=== PATIENT | female | born 1930 | race Asian ===

== ENCOUNTER 2018-08-29 17:03 | Inpatient (IN) | payer BC, OTHER ==
[~2018-08-29] VITALS: Ht 162.6 cm; Wt 44.7 kg
[~2018-08-29 17:03] MED LIST: ATORVASTATIN CA10 MG ORAL
[2018-08-29] MEDS ORDERED: Morphine Sulfate 2mg/ml Inj(IV/IM USE ONLY) IVP ONE (17:30)
[2018-08-29 17:56] LABS: BASOPHILS % (AUTO) 0.8 % (0.0-2.0); EOSINOPHILS % (AUTO) 1.2 % (0.0-3.0); HEMATOCRIT 40.5 % (37.0-47.0); HEMOGLOBIN 13.7 G/DL (12.0-16.0); LYMPHOCYTES % (AUTO) 11.2 % (20.0-45.0); MEAN CORPUSCULAR VOLUME 84 FL (80-99); MONOCYTES % (AUTO) 9.4 % (1.0-10.0); NEUTROPHILS % (AUTO) 77.4 % (45.0-75.0); PLATELET COUNT 340 K/UL (150-450); RED BLOOD COUNT 4.84 M/UL (4.20-5.40); RED CELL DISTRIBUTION WIDTH 11.6 % (11.6-14.8); WHITE BLOOD COUNT 12.6 K/UL (4.8-10.8)
[2018-08-29 18:06] LABS: ANION GAP 10 mmol/L (5-15); BLOOD UREA NITROGEN 30 mg/dL (7-18); CALCIUM 9.4 MG/DL (8.5-10.1); CARBON DIOXIDE 25 MMOL/L (21-32); CHLORIDE 105 MMOL/L (98-107); CREATININE 1.5 MG/DL (0.55-1.30); POTASSIUM 3.9 MMOL/L (3.5-5.1); SODIUM 140 MMOL/L (136-145)
[2018-08-29 18:12] LABS: ALANINE AMINOTRANSFERASE 25 U/L (12-78); ALBUMIN 3.8 G/DL (3.4-5.0); ALBUMIN/GLOBULIN RATIO 0.9 (1.0-2.7); ALKALINE PHOSPHATASE 94 U/L (46-116); ASPARTATE AMINO TRANSFERASE 22 U/L (15-37); BILIRUBIN,TOTAL 0.3 MG/DL (0.2-1.0); CREATINE KINASE 92 U/L (26-308)
[2018-08-29 18:26] VITALS: BP 149/70
[2018-08-29 19:16] LABS: APPEARANCE,URINE CLEAR; BILIRUBIN, URINE NEGATIVE (NEGATIVE); COLOR,URINE PALE YELLOW; GLUCOSE, URINE (UA) NEGATIVE (NEGATIVE); KETONES,URINE 1+ (NEGATIVE); LEUKOCYTE ESTERASE ,URINE 1+ (NEGATIVE); NITRITE,URINE NEGATIVE (NEGATIVE); PH,URINE 5 (4.5-8.0); PROTEIN,URINE 2+ (NEGATIVE); UROBILINOGEN,URINE NORMAL MG/DL (0.0-1.0)
[2018-08-29] MEDS ORDERED: Morphine Sulfate 4mg/ml Inj (IV USE ONLY) IVP ONE (19:30)
[2018-08-29] MEDS ORDERED: ACETAMINOPHEN325 M1 ORAL (19:32)
[2018-08-29] MEDS ORDERED: MULTIVITAMINS1 EAC2 ORAL (19:33)
[2018-08-29] MEDS ORDERED: ADVIL200 MG ORAL (19:33)
[2018-08-29 21:13] VITALS: BP 144/63
--- NOTE | 2018-08-29 21:30 | Emergency Room Report ---
History of Present Illness General Chief Complaint: Back Pain-No Injury Source: Patient, Family Member, EMS Present Illness HPI 88-year-old female presents ED for evaluation. Brought in by EMS. Complaining of back pain for the last few days. 10 out of 10, sharp, radiating down the right leg. Denies any recent fall or injury. Patient also states that she's been taking Cipro for diarrhea. Prescribed by her PMD. States she feels weak. Denies fevers or chills. Denies chest pain or shortness of breath. No other aggravating relieving factors. Denies any other associated symptoms Allergies: Coded Allergies: STRAWBERRY (Verified Allergy, Unknown, Rash, 08/29/18) Patient History Past Medical History: other Past Surgical History: none Pertinent Family History: none Social History: Denies: smoking, alcohol use, drug use Now: No Immunizations: UTD Reviewed Nursing Documentation: PMH: Agreed; PSxH: Agreed Nursing Documentation-PMH Hx Cardiac Problems: Yes - HEART MURMUR, HYPERLIPIDEMIA Review of Systems All Other Systems: negative except mentioned in HPI Physical Exam Vital Signs Date Time Temp Pulse Resp B/P (MAP) Pulse Ox O2 Delivery O2 Flow Rate FiO2 08/29/18 16:54 98.6 77 19 150/69 100 Room Air Sp02 EP Interpretation: reviewed, normal General Appearance: no apparent distress, alert, GCS 15, non-toxic, thin Head: normocephalic, atraumatic Eyes: bilateral eye normal inspection, bilateral eye PERRL ENT: hearing grossly normal, normal pharynx, no angioedema, normal voice Neck: full range of motion, supple/symm/no masses Respiratory: chest non-tender, lungs clear, normal breath sounds, speaking full sentences Cardiovascular #1: regular rate, rhythm, no edema Cardiovascular #2: 2+ carotid (R), 2+ carotid (L), 2+ radial (R), 2+ radial (L) , 2+ dorsalis pedis (R), 2+ dorsalis pedis (L) Gastrointestinal: normal bowel sounds, non tender, soft, non-distended, no guarding, no rebound Rectal: deferred Genitourinary: no CVA tenderness, vertebral tenderness Musculoskeletal: back normal, gait/station normal, tender - R hip pain with external rotation Neurologic: alert, oriented x3, responsive, motor strength/tone normal, sensory intact, speech normal Psychiatric: judgement/insight normal, memory normal, mood/affect normal, no suicidal/homicidal ideation Reflexes: 3+ bicep (R), 3+ bicep (L), 3+ tricep (R), 3+ tricep (L), 3+ knee (R) , 3+ knee (L) Skin: normal color, no rash, warm/dry, well hydrated Lymphatic: no adenopathy Medical Decision Making Diagnostic Impression: Primary Impression: Lumbar compression fracture Qualified Codes: S32.020A - Wedge compression fracture of second lumbar vertebra, initial encounter for closed fracture Additional Impressions: Diarrhea Qualified Codes: R19.7 - Diarrhea, unspecified Renal insufficiency ER Course Hospital Course 88-year-old female presents to ED with back pain, weakness, diarrhea Differential diagnoses include: fracture, scaitca, dehydration, UTI Clinical course Patient placed on stretcher. secured entrance monitor. After initial history and physical I ordered labs, IV fluids, UA, pain medication and CT scan Labs - minimal leukocytosis, Hb/Hct stable. cr 1.5, UA negative CT L-spine shows L2-L4 compression fractures CT pelvis unremarkable Patient given pain medications but still continues to have pain and unable to walk Discussed case with PMD Radha daly at [facility] - states that patient's normal creatinine is 0.8 Scuffed findings with patient and son. Patient will require admission. Patient states that she wants to be DO NOT RESUSCITATE. May have POLST signed to that effect at [facility] patient will be admitted to Dr Lemus I feel this is a highly complex case requiring extensive working including EKG/ Rhythm strip, Xray/CT/US, Blood/urine lab work, repeat exams while in ED, and administration of strong opiates/narcotics for pain control, admission to hospital or close patient follow up. Diagnosis - lumbar compression fx, diarrhea, renal isnufficiency Patient admitted to floor in serious condition Labs Test 08/29/18 17:27 08/29/18 18:49 White Blood Count 12.6 K/UL (4.8-10.8) Red Blood Count 4.84 M/UL (4.20-5.40) Hemoglobin 13.7 G/DL (12.0-16.0) Hematocrit 40.5 % (37.0-47.0) Mean Corpuscular Volume 84 FL (80-99) Mean Corpuscular Hemoglobin 28.2 PG (27.0-31.0) Mean Corpuscular Hemoglobin Concent 33.7 G/DL (32.0-36.0) Red Cell Distribution Width 11.6 % (11.6-14.8) Platelet Count 340 K/UL (150-450) Mean Platelet Volume 5.1 FL (6.5-10.1) Neutrophils (%) (Auto) 77.4 % (45.0-75.0) Lymphocytes (%) (Auto) 11.2 % (20.0-45.0) Monocytes (%) (Auto) 9.4 % (1.0-10.0) Eosinophils (%) (Auto) 1.2 % (0.0-3.0) Basophils (%) (Auto) 0.8 % (0.0-2.0) Sodium Level 140 MMOL/L (136-145) Potassium Level 3.9 MMOL/L (3.5-5.1) Chloride Level 105 MMOL/L (98-107) Carbon Dioxide Level 25 MMOL/L (21-32) Anion Gap 10 mmol/L (5-15) Blood Urea Nitrogen 30 mg/dL (7-18) Creatinine 1.5 MG/DL (0.55-1.30) Estimat Glomerular Filtration Rate mL/min (>60) Glucose Level 104 MG/DL (74-106) Calcium Level 9.4 MG/DL (8.5-10.1) Magnesium Level 2.1 MG/DL (1.8-2.4) Total Bilirubin 0.3 MG/DL (0.2-1.0) Aspartate Amino Transf (AST/SGOT) 22 U/L (15-37) Alanine Aminotransferase (ALT/SGPT) 25 U/L (12-78) Alkaline Phosphatase 94 U/L (46-116) Total Creatine Kinase 92 U/L (26-308) Total Protein 7.9 G/DL (6.4-8.2) Albumin 3.8 G/DL (3.4-5.0) Globulin 4.1 g/dL Albumin/Globulin Ratio 0.9 (1.0-2.7) Lipase 294 U/L (73-393) Urine Color Pale yellow Urine Appearance Clear Urine pH 5 (4.5-8.0) Urine Specific [place] 1.010 (1.005-1.035) Urine Protein 2+ (NEGATIVE) Urine Glucose (UA) Negative (NEGATIVE) Urine Ketones 1+ (NEGATIVE) Urine Blood 2+ (NEGATIVE) Urine Nitrite Negative (NEGATIVE) Urine Bilirubin Negative (NEGATIVE) Urine Urobilinogen Normal MG/DL (0.0-1.0) Urine Leukocyte Esterase 1+ (NEGATIVE) Urine RBC 0-2 /HPF (0 - 2) Urine WBC 0-2 /HPF (0 - 2) Urine Squamous Epithelial Cells Occasional /LPF Urine Bacteria Occasional /HPF (NONE) CT/MRI/US Diagnostic Results CT/MRI/US Diagnostic Results #1: Imaging Test Ordered: CT L spine Impression compression fx L2-L4 CT/MRI/US Diagnostic Results #2: Imaging Test Ordered: CT Pelvis Impression no acute process Last Vital Signs Date Time Temp Pulse Resp B/P (MAP) Pulse Ox O2 Delivery O2 Flow Rate FiO2 08/29/18 21:13 98.5 100 19 144/63 100 Room Air Status: unchanged Disposition: ADMITTED INPATIENT Condition: Serious Referrals: NON PHYSICIAN (PCP) Omari Chairez MD Aug 29, 2018 21:30
[2018-08-29 22:30] VITALS: BP 172/95
[2018-08-30] VITALS (7 sets, daily range): BP systolic 118–155; BP diastolic 54–86
[2018-08-30] MEDS ORDERED: Morphine Sulfate 2mg/ml Inj(IV/IM USE ONLY) IVP PRN (03:15)
[2018-08-30] MEDS ORDERED: Morphine Sulfate 4mg/ml Inj (IV USE ONLY) IVP PRN (03:15)
[2018-08-30 07:41] LABS: BASOPHILS % (AUTO) 0.9 % (0.0-2.0); EOSINOPHILS % (AUTO) 0.9 % (0.0-3.0); HEMATOCRIT 42.2 % (37.0-47.0); HEMOGLOBIN 14.1 G/DL (12.0-16.0); MEAN CORPUSCULAR VOLUME 87 FL (80-99); MONOCYTES % (AUTO) 10.4 % (1.0-10.0); NEUTROPHILS % (AUTO) 77.8 % (45.0-75.0); PLATELET COUNT 334 K/UL (150-450); RED BLOOD COUNT 4.85 M/UL (4.20-5.40); RED CELL DISTRIBUTION WIDTH 12.2 % (11.6-14.8); WHITE BLOOD COUNT 11.2 K/UL (4.8-10.8)
[2018-08-30 07:42] LABS: ANION GAP 10 mmol/L (5-15); BLOOD UREA NITROGEN 24 mg/dL (7-18); CALCIUM 9.4 MG/DL (8.5-10.1); CARBON DIOXIDE 26 MMOL/L (21-32); CHLORIDE 107 MMOL/L (98-107); CREATININE 1.2 MG/DL (0.55-1.30); PHOSPHORUS 4.3 MG/DL (2.5-4.9); POTASSIUM 3.6 MMOL/L (3.5-5.1); SODIUM 143 MMOL/L (136-145)
--- NOTE | 2018-08-30 08:32 | Diagnostic Imaging Report ---
Indications: Back pain Technique: Spiral acquisitions obtained through the lumbar spine. Multiplanar reconstructions were generated. No IV contrast utilized. Total dose length product 519.62 mGycm. CTDIvol(s) 16.32 mGy. Dose reduction achieved using automated exposure control Comparison: none Findings: There is a vertebra plana type compression fracture deformity of the L3 vertebral body, with loss of height particularly centrally at the superior endplate, maximum height loss about 50%. Acuity is indeterminate, although one or more previous fracture lines are seen in the superior endplate. There is mild superior endplate compression fracture deformity of the L4 vertebral body as well, with only minimal height loss. Slight buckling of the anterior wall of L2 could also indicate a mild superior endplate compression fracture. The remaining vertebral body heights are preserved. No other acute fractures. The bony alignment is normal. The disc spaces are preserved. There is some vacuum formation in the L5-S1 disc there is multilevel facet arthrosis, particularly the lower lumbar spine. The bones appear diffusely osteoporotic. Fat L2-3, there is a posterior osteophyte protruding off of the posterior superior aspect of L2. This does not significantly compromise the spinal canal. The neural foramina are preserved. At L4-5, there is circumferential annular bulge. This does not significant compromise the spinal canal or neural foramina. At the remaining disc levels, no significant disc bulge or protrusion, spinal stenosis or neural foraminal stenosis. There are large nerve root sleeve cysts involving the S2 and possibly S3 nerve root sleeves. These expand the lower sacral spinal canal. The included extra spinal soft tissues are unremarkable. Impression: Significant compression fracture deformity of the L3 vertebral body, less severe compression fracture deformities of L4 and L2, as described. Acuity of these is indeterminate. Recommend MRI to better characterize Minimal degenerative changes as detailed on a level by level basis above Incidental finding of lower sacral nerve root sleeve cysts This agrees with the preliminary interpretation provided overnight by [facility] teleradiology service. The CT scanner at [facility] is accredited by the [employer] and the scans are performed using protocols designed to limit radiation exposure to as low as reasonably achievable to attain images of sufficient resolution adequate for diagnostic evaluation.
--- NOTE | 2018-08-30 08:36 | Diagnostic Imaging Report ---
Indication: Right hip pain Technique: Noncontrast spiral acquisitions obtained through the pelvis. Multiplanar reconstructions generated. Total dose length product 336.32 mGycm. CTDIvol(s) 10.59 mGy. Dose reduction achieved using automated exposure control Comparison: none Findings: No evidence of acute fracture. No dislocations. The joint spaces are preserved. No definite soft tissue hematoma or contusion. Incidentally noted are large sacral nerve root sleeve cysts involving the S2 and S3 nerve root sleeves. The uterus and adnexal structures are unremarkable. Normal appendix is demonstrated Impression: No acute abnormality Incidental finding of nerve root sleeve cysts This agrees with the preliminary interpretation provided overnight by [facility] service. The CT scanner at [facility] is accredited by the [employer] and the scans are performed using protocols designed to limit radiation exposure to as low as reasonably achievable to attain images of sufficient resolution adequate for diagnostic evaluation.
[2018-08-30] MEDS ORDERED: oxyCODONE HCL/Acetaminophen 5/325mg ORAL PRN (09:30)
--- NOTE | 2018-08-30 10:02 | History and Physical ---
History of Present Illness General Date patient seen: Aug 30, 2018 Time patient seen: 08:30 Reason for Hospitalization: Back Pain-No Injury Present Illness HPI 88 year old woman with history of pSVT, hyperlipidemia, MVP, OA, breast cancer s /p right mastectomy who presented to the ED yesterday with progressive back and right hip pain for the past 3 days. Pain is 10/10 at worst and radiates down the right leg. Denies any injury or falls. She was moving furniture in April when initial symptoms of back pain started. Pain is better when she is lying down, worse when sitting up or moving. Patient had also been on Cipro for the past few days for unspecified diarrheal illness. In ED she was noted to have mild SARAH with creatinine of 1.5, imaging revealed ignificant compression fracture deformity of the L3 vertebral body, less severe compression fracture deformities of L4 and L2 - age indeterminate Social History: Lives with Son, no alcohol or tobacco Family History: No history of CAD, stroke Allergies: Coded Allergies: STRAWBERRY (Verified Allergy, Unknown, Rash, 08/29/18) Medication History Scheduled Atorvastatin Calcium* (Lipitor*), 10 MG ORAL BEDTIME, (Reported) Multivitamins* (Multivitamins*), 1 TAB ORAL DAILY, (Reported) Scheduled PRN Acetaminophen* (Acetaminophen 325MG Tablet*), 325 MG ORAL DAILY PRN for For Pain , (Reported) Ibuprofen* (Advil*), 200 MG ORAL Q6H PRN for For Pain, (Reported) Patient History Healthcare decision maker Resuscitation status Full Code Advanced Directive on File Review of Systems Constitutional: Denies: chills, fever Eye: Denies: eye pain, blurred vision ENT: Denies: ear pain Respiratory: Denies: cough, shortness of breath Cardiovascular: Denies: chest pain, edema, palpitations Gastrointestinal: Denies: abdominal pain, constipation Genitourinary: Denies: discharge, dysuria Musculoskeletal: Reports: back pain; Denies: gout, joint pain, joint swelling Skin: Denies: rash Neurological: Denies: headache, numbness, paresthesia Endocrine: Denies: excessive sweating Physical Exam General Appearance: no apparent distress, alert HEENT: atraumatic, anicteric Neck: normal alignment, supple, normal inspection Respiratory/Chest: lungs clear, normal breath sounds, no respiratory distress Cardiovascular/Chest: normal rate, regular rhythm Abdomen: non tender, soft, no organomegaly Extremities: non-tender, normal inspection, no calf tenderness Skin Exam: normal pigmentation, warm/dry 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 II-XII grossly normal, no motor/sensory deficits, alert, oriented x 3 Last 24 Hour Vital Signs Date Time Temp Pulse Resp B/P (MAP) Pulse Ox O2 Delivery O2 Flow Rate FiO2 08/30/18 09:01 Room Air 08/30/18 08:00 97.8 85 19 155/81 (105) 100 08/30/18 04:00 97.6 100 17 148/79 (102) 97 08/30/18 00:00 97.9 105 18 154/86 (108) 97 08/29/18 22:30 97.7 107 17 172/95 (120) 97 08/29/18 22:14 Room Air 08/29/18 22:10 98.5 100 19 144/63 100 Room Air 08/29/18 21:13 98.5 100 19 144/63 100 Room Air 08/29/18 21:08 98.6 08/29/18 20:19 98.6 08/29/18 18:26 98.6 106 19 149/70 100 Room Air 08/29/18 18:06 98.6 08/29/18 16:54 98.6 77 19 150/69 100 Room Air Intake and Output 08/29/18 08/30/18 19:00 07:00 Intake Total 1600 ml Output Total 0 ml Balance 0 ml 1600 ml Intake Oral 100 ml IV Total 1500 ml Output Urine Total 0 ml Laboratory Tests Test 08/29/18 17:27 08/29/18 18:49 08/30/18 06:38 White Blood Count 12.6 K/UL (4.8-10.8) H 11.2 K/UL (4.8-10.8) H Red Blood Count 4.84 M/UL (4.20-5.40) 4.85 M/UL (4.20-5.40) Hemoglobin 13.7 G/DL (12.0-16.0) 14.1 G/DL (12.0-16.0) Hematocrit 40.5 % (37.0-47.0) 42.2 % (37.0-47.0) Mean Corpuscular Volume 84 FL (80-99) 87 FL (80-99) Mean Corpuscular Hemoglobin 28.2 PG (27.0-31.0) 29.0 PG (27.0-31.0) Mean Corpuscular Hemoglobin Concent 33.7 G/DL (32.0-36.0) 33.4 G/DL (32.0-36.0) Red Cell Distribution Width 11.6 % (11.6-14.8) 12.2 % (11.6-14.8) Platelet Count 340 K/UL (150-450) 334 K/UL (150-450) Mean Platelet Volume 5.1 FL (6.5-10.1) L 5.4 FL (6.5-10.1) L Neutrophils (%) (Auto) 77.4 % (45.0-75.0) H 77.8 % (45.0-75.0) H Lymphocytes (%) (Auto) 11.2 % (20.0-45.0) L 10.0 % (20.0-45.0) L Monocytes (%) (Auto) 9.4 % (1.0-10.0) 10.4 % (1.0-10.0) H Eosinophils (%) (Auto) 1.2 % (0.0-3.0) 0.9 % (0.0-3.0) Basophils (%) (Auto) 0.8 % (0.0-2.0) 0.9 % (0.0-2.0) Sodium Level 140 MMOL/L (136-145) 143 MMOL/L (136-145) Potassium Level 3.9 MMOL/L (3.5-5.1) 3.6 MMOL/L (3.5-5.1) Chloride Level 105 MMOL/L (98-107) 107 MMOL/L (98-107) Carbon Dioxide Level 25 MMOL/L (21-32) 26 MMOL/L (21-32) Anion Gap 10 mmol/L (5-15) 10 mmol/L (5-15) Blood Urea Nitrogen 30 mg/dL (7-18) H 24 mg/dL (7-18) H Creatinine 1.5 MG/DL (0.55-1.30) H 1.2 MG/DL (0.55-1.30) Estimat Glomerular Filtration Rate mL/min (>60) mL/min (>60) Glucose Level 104 MG/DL (74-106) 109 MG/DL (74-106) H Calcium Level 9.4 MG/DL (8.5-10.1) 9.4 MG/DL (8.5-10.1) Magnesium Level 2.1 MG/DL (1.8-2.4) Total Bilirubin 0.3 MG/DL (0.2-1.0) Aspartate Amino Transf (AST/SGOT) 22 U/L (15-37) Alanine Aminotransferase (ALT/SGPT) 25 U/L (12-78) Alkaline Phosphatase 94 U/L (46-116) Total Creatine Kinase 92 U/L (26-308) Total Protein 7.9 G/DL (6.4-8.2) Albumin 3.8 G/DL (3.4-5.0) Globulin 4.1 g/dL Albumin/Globulin Ratio 0.9 (1.0-2.7) L Lipase 294 U/L (73-393) Urine Color Pale yellow Urine Appearance Clear Urine pH 5 (4.5-8.0) Urine Specific [place] 1.010 (1.005-1.035) Urine Protein 2+ (NEGATIVE) H Urine Glucose (UA) Negative (NEGATIVE) Urine Ketones 1+ (NEGATIVE) H Urine Blood 2+ (NEGATIVE) H Urine Nitrite Negative (NEGATIVE) Urine Bilirubin Negative (NEGATIVE) Urine Urobilinogen Normal MG/DL (0.0-1.0) Urine Leukocyte Esterase 1+ (NEGATIVE) H Urine RBC 0-2 /HPF (0 - 2) Urine WBC 0-2 /HPF (0 - 2) Urine Squamous Epithelial Cells Occasional /LPF Urine Bacteria Occasional /HPF (NONE) Phosphorus Level 4.3 MG/DL (2.5-4.9) Height (Feet): 5 Height (Inches): 4.00 Weight (Pounds): 119 Medications Current Medications Medications (Trade) Dose Ordered Sig/Blank Route PRN Reason Start Time Stop Time Status Last Admin Dose Admin Acetaminophen (Tylenol) 650 mg Q6H PRN ORAL Mild Pain/Temp > 100.5 08/30/18 03:15 09/29/18 03:14 Atorvastatin Calcium (Lipitor) 10 mg BEDTIME ORAL 08/30/18 21:00 09/29/18 20:59 Morphine Sulfate (Morphine Sulfate) 4 mg Q6HR PRN IVP Severe Pain (Pain Scale 7-10) 08/30/18 03:15 09/06/18 03:14 08/30/18 05:16 Oxycodone/ Acetaminophen (Percocet 10/325) 1 tab Q4H PRN ORAL Severe Pain (Pain Scale 7-10) 08/30/18 09:30 09/06/18 09:29 Oxycodone/ Acetaminophen (Percocet 5-325) 1 tab Q4H PRN ORAL Moderate Pain (Pain Scale 4-6) 08/30/18 09:30 09/06/18 09:29 Assessment/Plan Assessment/Plan #Low back pain without LE weakness #Severe L3 compression fractures -admit to medical service -obtain MRI L-Spine -Percocet prn -Morphine IV for breakthrough pain -Neurology consult -PT/OT eval #SARAH, likely due to dehydration from diarrheal illness, improved with IV fluids -continue to monitor renal function -avoid nephrotoxic meds #PSVT #Hyperlipidemia #MVP -continue Lipitor VTE PPx Heparin SC Full Code High complexity medical decision making (need 2/3 categories) Problem - need 4 points Acute/new problem with new plan for workup (4 points, 1 max) Stable chronic problem actively being managed (1 point each, 2 max) Self-limited/transient process (constipation, muscle ache, etc) (1 point each, 2 max) Data - need 4 points Reviewed labs/imaging studies (1 points, 2 max) Independent review of imaging (EKG, xrays, etc) (2 points, 2 max) Discussed case with consult/other MD/RN (2 points, 2 max) High Risk - qualify if have one of the following: Severe exacerbation of acute problem, acute mental status change, IV narcotics, monitoring drug levels (vancomycin, INR, tacrolimus etc) I spent 70 minutes on this patient's case, and 35 minutes was dedicated to counseling and/or care coordination. Rupert Harper MD Aug 30, 2018 10:02
[2018-08-30] MEDS ORDERED: LORazepam Inj 2mg/ml 1ml IV SCH (11:30)
--- NOTE | 2018-08-30 14:34 | Consultation ---
History of Present Illness General Date patient seen: Aug 30, 2018 Time patient seen: 15:00 Chief Complaint: Back Pain-No Injury Reason for Consultation: Compression Fracture with Pain Present Illness HPI 88 year old woman with history of pSVT, hyperlipidemia, MVP, OA, breast cancer s /p right mastectomy who presented to the ED yesterday with progressive back and right hip pain for the past 3 days. Pain is 10/10 at worst and radiates down the right leg. Denies any injury or falls. She was moving furniture in April when initial symptoms of back pain started. Pain is better when she is lying down, worse when sitting up or moving. Patient had also been on Cipro for the past few days for unspecified diarrheal illness. In ED she was noted to have mild SARAH with creatinine of 1.5, imaging revealed ignificant compression fracture deformity of the L3 vertebral body, less severe compression fracture deformities of L4 and L2 - age indeterminate Allergies: Coded Allergies: STRAWBERRY (Verified Allergy, Unknown, Rash, 08/29/18) Medication History Scheduled Atorvastatin Calcium* (Lipitor*), 10 MG ORAL BEDTIME, (Reported) Multivitamins* (Multivitamins*), 1 TAB ORAL DAILY, (Reported) Scheduled PRN Acetaminophen* (Acetaminophen 325MG Tablet*), 325 MG ORAL DAILY PRN for For Pain , (Reported) Ibuprofen* (Advil*), 200 MG ORAL Q6H PRN for For Pain, (Reported) Patient History Limited by: medical condition History Provided By: Family Member Healthcare decision maker Resuscitation status DNAR Advanced Directive on File Past Medical/Surgical History Past Medical/Surgical History: (1) Diarrhea (2) Renal insufficiency (3) Lumbar compression fracture (4) Intractable back pain Review of Systems All Other Systems: negative except mentioned in HPI Physical Exam General Appearance: WD/WN, no apparent distress, lethargic - Just given Ativan and Oxycodone Lines, tubes and drains: peripheral HEENT: normocephalic, atraumatic Neck: normal alignment Respiratory/Chest: chest wall non-tender, normal breath sounds Cardiovascular/Chest: normal peripheral pulses, normal rate Skin Exam: normal pigmentation Neurologic: no motor/sensory deficits, unresponsiveness - Secondary to being given benzos/ narcotics , other - WD or localizing x 4. Right leg extended and somewhat rigid, increased tone. Reflexes intact bilaterally L>R. Toes down bilaterally . Last 24 Hour Vital Signs Date Time Temp Pulse Resp B/P (MAP) Pulse Ox O2 Delivery O2 Flow Rate FiO2 08/30/18 13:05 98.2 97 19 131/66 (87) 95 08/30/18 11:30 79 19 148/74 (98) 100 08/30/18 09:01 Room Air 08/30/18 08:00 97.8 85 19 155/81 (105) 100 08/30/18 04:00 97.6 100 17 148/79 (102) 97 08/30/18 00:00 97.9 105 18 154/86 (108) 97 08/29/18 22:30 97.7 107 17 172/95 (120) 97 08/29/18 22:14 Room Air 08/29/18 22:10 98.5 100 19 144/63 100 Room Air 08/29/18 21:13 98.5 100 19 144/63 100 Room Air 08/29/18 21:08 98.6 08/29/18 20:19 98.6 08/29/18 18:26 98.6 106 19 149/70 100 Room Air 08/29/18 18:06 98.6 08/29/18 16:54 98.6 77 19 150/69 100 Room Air Intake and Output 08/29/18 08/30/18 19:00 07:00 Intake Total 1600 ml Output Total 0 ml Balance 0 ml 1600 ml Intake Oral 100 ml IV Total 1500 ml Output Urine Total 0 ml Laboratory Tests Test 08/29/18 17:27 08/29/18 18:49 08/30/18 06:38 White Blood Count 12.6 K/UL (4.8-10.8) H 11.2 K/UL (4.8-10.8) H Red Blood Count 4.84 M/UL (4.20-5.40) 4.85 M/UL (4.20-5.40) Hemoglobin 13.7 G/DL (12.0-16.0) 14.1 G/DL (12.0-16.0) Hematocrit 40.5 % (37.0-47.0) 42.2 % (37.0-47.0) Mean Corpuscular Volume 84 FL (80-99) 87 FL (80-99) Mean Corpuscular Hemoglobin 28.2 PG (27.0-31.0) 29.0 PG (27.0-31.0) Mean Corpuscular Hemoglobin Concent 33.7 G/DL (32.0-36.0) 33.4 G/DL (32.0-36.0) Red Cell Distribution Width 11.6 % (11.6-14.8) 12.2 % (11.6-14.8) Platelet Count 340 K/UL (150-450) 334 K/UL (150-450) Mean Platelet Volume 5.1 FL (6.5-10.1) L 5.4 FL (6.5-10.1) L Neutrophils (%) (Auto) 77.4 % (45.0-75.0) H 77.8 % (45.0-75.0) H Lymphocytes (%) (Auto) 11.2 % (20.0-45.0) L 10.0 % (20.0-45.0) L Monocytes (%) (Auto) 9.4 % (1.0-10.0) 10.4 % (1.0-10.0) H Eosinophils (%) (Auto) 1.2 % (0.0-3.0) 0.9 % (0.0-3.0) Basophils (%) (Auto) 0.8 % (0.0-2.0) 0.9 % (0.0-2.0) Sodium Level 140 MMOL/L (136-145) 143 MMOL/L (136-145) Potassium Level 3.9 MMOL/L (3.5-5.1) 3.6 MMOL/L (3.5-5.1) Chloride Level 105 MMOL/L (98-107) 107 MMOL/L (98-107) Carbon Dioxide Level 25 MMOL/L (21-32) 26 MMOL/L (21-32) Anion Gap 10 mmol/L (5-15) 10 mmol/L (5-15) Blood Urea Nitrogen 30 mg/dL (7-18) H 24 mg/dL (7-18) H Creatinine 1.5 MG/DL (0.55-1.30) H 1.2 MG/DL (0.55-1.30) Estimat Glomerular Filtration Rate mL/min (>60) mL/min (>60) Glucose Level 104 MG/DL (74-106) 109 MG/DL (74-106) H Calcium Level 9.4 MG/DL (8.5-10.1) 9.4 MG/DL (8.5-10.1) Magnesium Level 2.1 MG/DL (1.8-2.4) Total Bilirubin 0.3 MG/DL (0.2-1.0) Aspartate Amino Transf (AST/SGOT) 22 U/L (15-37) Alanine Aminotransferase (ALT/SGPT) 25 U/L (12-78) Alkaline Phosphatase 94 U/L (46-116) Total Creatine Kinase 92 U/L (26-308) Total Protein 7.9 G/DL (6.4-8.2) Albumin 3.8 G/DL (3.4-5.0) Globulin 4.1 g/dL Albumin/Globulin Ratio 0.9 (1.0-2.7) L Lipase 294 U/L (73-393) Urine Color Pale yellow Urine Appearance Clear Urine pH 5 (4.5-8.0) Urine Specific Stamps 1.010 (1.005-1.035) Urine Protein 2+ (NEGATIVE) H Urine Glucose (UA) Negative (NEGATIVE) Urine Ketones 1+ (NEGATIVE) H Urine Blood 2+ (NEGATIVE) H Urine Nitrite Negative (NEGATIVE) Urine Bilirubin Negative (NEGATIVE) Urine Urobilinogen Normal MG/DL (0.0-1.0) Urine Leukocyte Esterase 1+ (NEGATIVE) H Urine RBC 0-2 /HPF (0 - 2) Urine WBC 0-2 /HPF (0 - 2) Urine Squamous Epithelial Cells Occasional /LPF Urine Bacteria Occasional /HPF (NONE) Phosphorus Level 4.3 MG/DL (2.5-4.9) Height (Feet): 5 Height (Inches): 4.00 Weight (Pounds): 119 Medications Current Medications Medications (Trade) Dose Ordered Sig/Blank Route PRN Reason Start Time Stop Time Status Last Admin Dose Admin Acetaminophen (Tylenol) 650 mg Q6H PRN ORAL Mild Pain/Temp > 100.5 08/30/18 03:15 09/29/18 03:14 Atorvastatin Calcium (Lipitor) 10 mg BEDTIME ORAL 08/30/18 21:00 09/29/18 20:59 Morphine Sulfate (Morphine Sulfate) 4 mg Q6HR PRN IVP Severe Pain (Pain Scale 7-10) 08/30/18 03:15 09/06/18 03:14 08/30/18 05:16 Oxycodone/ Acetaminophen (Percocet 10/325) 1 tab Q4H PRN ORAL Severe Pain (Pain Scale 7-10) 08/30/18 09:30 09/06/18 09:29 08/30/18 09:55 Oxycodone/ Acetaminophen (Percocet 5-325) 1 tab Q4H PRN ORAL Moderate Pain (Pain Scale 4-6) 08/30/18 09:30 09/06/18 09:29 Assessment/Plan Problem List: (1) Lumbar compression fracture Assessment & Plan: IR Kyphoplasty planned for treatment of vertebral compression fracture- need patient to be alert enough to give her consent for this. Will try tomorrow. Agree with treatment plan and will follow. ICD Codes: S32.000A - Wedge compression fracture of unspecified lumbar vertebra , initial encounter for closed fracture SNOMED: 568593008, [id number] Qualifiers: Qualified Codes: S32.020A - Wedge compression fracture of second lumbar vertebra, initial encounter for closed fracture (2) Intractable back pain Assessment & Plan: Currently deeply asleep following administration of Ativan for MRI and oxycodone for pain. No pain noted except upon stimulation of right leg during exam . ICD Codes: M54.9 - Dorsalgia, unspecified SNOMED: 284650767 (3) Depression Assessment & Plan: As per son, and as per RN, patient initially refusing pain management. "I'm DNR so I'm going to anyway" Patient convinced to allow pain management but voicing resistance to treatment. Psych consult recommended. ICD Codes: F32.9 - Major depressive disorder, single episode, unspecified SNOMED: 76261449 Qualifiers: Qualified Codes: F32.9 - Major depressive disorder, single episode, unspecified Status: stable Assessment/Plan Q4 Neuro/ Neurovascular Obs Pain Management Avoid use of benzodiazapenes/ narcotics or use sparingly Avoid disorientation/ anxiety: Providing regular reorientation to patient PT/OT Eval when able FOLLOWING procedure. Valarie Douglass N.P. Aug 30, 2018 14:34
--- NOTE | 2018-08-30 15:34 | Diagnostic Imaging Report ---
Indication: Below back pain 10 out of 10 Technique: Sagittal T1 and T2 fast spin echo, sagittal STIR, axial T1 and T2 fast spin-echo images of the lumbar spine Comparison: Reference made to CT scan of the lumbar spine 08/29/2018 Findings: There is mild buckling of the anterior wall of the L2 vertebral body, also demonstrated on recent CT, minimal if any height loss, slight depression of the superior endplate. There is considerable edema of the superior half of the L2 vertebral body, manifested by increased STIR and decreased T1 signal. There is a wedge/burst compression fracture deformity of the L3 vertebral body, with slight retropulsion of the superior aspect of the posterior wall. The greatest height loss is centrally, where there is approximately 60% loss of height. A thin rim of edema is seen adjacent to the superior endplate. There is mild loss of height of the L4 vertebral body, predominantly involving the superior endplate. There is considerable edema immediately adjacent to the L4 superior endplate, greater in extent than that seen at L3 but less than at L2. The remaining vertebral body marrow is normal. The remaining vertebral body heights are preserved. The disc spaces are all preserved. The conus medullaris terminates at the L1 level. There are large sacral nerve root sleeve cysts, also demonstrated on recent CT scan. No significant disc bulge or protrusion, spinal stenosis, or neural foraminal stenosis demonstrated. The included extraspinal soft tissues demonstrates moderate right and minimal left hydronephrosis. This is not evident on recent CT scan.. The sagittal images suggests that the bladder is markedly distended Impression: Positive for acute superior endplate compression fracture of the L2 vertebral body, also demonstrating minimal buckling of the anterior wall, confirming findings suspected on recent CT scan. L3 burst/ wedge compression fracture as described. There is some edema, indicating an acute component, but the edema is less than expected given the degree of deformity. Suspect the fracture deformity is mostly chronic, with a superimposed acute endplate depression Acute L4 superior endplate compression fracture, as described Unusual finding of bilateral right greater than left hydronephrosis which is not present on a lumbar spine CT of less than 24 hours earlier. Significance/etiology uncertain but suspect on the basis of acute bladder distention Multiple sacral nerve root sleeve cysts, also previously reported. Findings discussed by phone with Dr. Russo at the time of interpretation
[2018-08-31] VITALS: BP 155/84
[2018-08-31 04:00] VITALS: BP 170/100
[2018-08-31] MEDS: HydrALAZINE 25mg tab ORAL PRN (05:44)
[2018-08-31 08:00] VITALS: BP 154/86
--- NOTE | 2018-08-31 08:52 | Pre-Procedure Note/Attestation ---
Pre-Procedure Note/Attestation Complete Prior to Procedure Planned Procedure: not applicable Procedure Narrative: L2, L3, L4 kyphoplasty Indications for Procedure Pre-Operative Diagnosis: painful compression fractures Attestation I attest that I discussed the nature of the procedure; its benefits; risks and complications; and alternatives (and the risks and benefits of such alternatives ), prior to the procedure, with the patient (or the patient's legal traffic representative). I attest that, if there was a reasonable possibility of needing a blood transfusion, the patient (or the patient's legal traffic representative) was given the [facility] standardized written summary, pursuant to the [place] Blood Safety Act ([place] Health and Safety Code # 1645, as amended). I attest that I re-evaluated the patient just prior to the surgery and that there has been no change in the patient's H&P, except as documented below: Lucho Perrin MD Aug 31, 2018 08:52
--- NOTE | 2018-08-31 11:28 | General Progress Note ---
Assessment/Plan Assessment/Plan #Acute lumbar compression fractures -continue supportive care -plan for Kyphoplasty once medically cleared -Percocet prn -Morphine IV for breakthrough pain -Neurology following -PT/OT eval #Fever #Sepsis -unclear source at this time, possible urinary -ID eval appreciated, started on Zosyn -check blood and urine cultures #Acute urinary retention -continue Kaye catheter #SARAH -resolved -continue to monitor renal function -avoid nephrotoxic meds #PSVT #Hyperlipidemia #MVP -currently sinus tachycardia -continue Lipitor VTE PPx Heparin SC Full Code High complexity medical decision making (need 2/3 categories) Problem - need 4 points Acute/new problem with new plan for workup (4 points, 1 max) Stable chronic problem actively being managed (1 point each, 2 max) Self-limited/transient process (constipation, muscle ache, etc) (1 point each, 2 max) Data - need 4 points Reviewed labs/imaging studies (1 points, 2 max) Independent review of imaging (EKG, xrays, etc) (2 points, 2 max) Discussed case with consult/other MD/RN (2 points, 2 max) High Risk - qualify if have one of the following: Severe exacerbation of acute problem, acute mental status change, IV narcotics, monitoring drug levels (vancomycin, INR, tacrolimus etc) I spent 70 minutes on this patient's case, and 35 minutes was dedicated to counseling and/or care coordination. Subjective Date patient seen: Aug 31, 2018 ROS Limited/Unobtainable: No Constitutional: Denies: chills, fever HEENT: Denies: eye pain Cardiovascular: Denies: chest pain Respiratory: Denies: cough, orthopnea Gastrointestinal/Abdominal: Denies: abdomen distended, abdominal pain Genitourinary: Denies: burning Neurologic/Psychiatric: Reports: anxiety Allergies: Coded Allergies: STRAWBERRY (Verified Allergy, Unknown, Rash, 08/29/18) Subjective Medicine follow up for acute lumbar compression fractures. Overnight she had low grade temp of 100 + urinary retention of 850 ml, s/p Kaye catheter placement Objective Last 24 Hour Vital Signs Date Time Temp Pulse Resp B/P (MAP) Pulse Ox O2 Delivery O2 Flow Rate FiO2 08/31/18 08:00 97.8 127 22 154/86 (108) 96 08/31/18 05:44 181/92 08/31/18 04:00 100.0 117 18 170/100 (123) 96 08/31/18 00:00 97.8 110 18 155/84 (107) 100 08/30/18 21:00 Room Air 08/30/18 20:00 97.8 107 18 144/79 (100) 95 08/30/18 15:59 97.7 88 18 118/54 (75) 95 08/30/18 13:05 98.2 97 19 131/66 (87) 95 08/30/18 11:30 79 19 148/74 (98) 100 Intake and Output 08/30/18 08/31/18 18:59 06:59 Intake Total 220 ml Output Total 200 ml Balance 220 ml -200 ml Intake Oral 220 ml Output Urine Total 200 ml # Voids 2 Laboratory Tests 08/30/18 16:20: Prothrombin Time 10.6, Prothromb Time International Ratio 1.0, Activated Partial Thromboplast Time 23 Height (Feet): 5 Height (Inches): 4.00 Weight (Pounds): 119 General Appearance: no apparent distress, alert Neck: supple, normal inspection Cardiovascular: regular rhythm, tachycardia Respiratory/Chest: lungs clear, normal breath sounds, no respiratory distress Abdomen: non tender, soft, no organomegaly, no mass Extremities: normal range of motion, non-tender Neurologic: dispatcher relay II-XII grossly normal, no motor/sensory deficits, alert Rupert Harper MD Aug 31, 2018 11:28
[2018-08-31 12:00] VITALS: BP 152/88
[2018-08-31 12:05] LABS: BASOPHILS % (AUTO) 0.6 % (0.0-2.0); EOSINOPHILS % (AUTO) 0.4 % (0.0-3.0); HEMATOCRIT 43.3 % (37.0-47.0); HEMOGLOBIN 14.2 G/DL (12.0-16.0); LYMPHOCYTES % (AUTO) 7.5 % (20.0-45.0); MEAN CORPUSCULAR VOLUME 86 FL (80-99); MONOCYTES % (AUTO) 8.5 % (1.0-10.0); NEUTROPHILS % (AUTO) 83.1 % (45.0-75.0); PLATELET COUNT 325 K/UL (150-450); RED BLOOD COUNT 5.04 M/UL (4.20-5.40); RED CELL DISTRIBUTION WIDTH 12.1 % (11.6-14.8); WHITE BLOOD COUNT 15.2 K/UL (4.8-10.8)
[2018-08-31 12:37] LABS: ANION GAP 10 mmol/L (5-15); BLOOD UREA NITROGEN 27 mg/dL (7-18); CALCIUM 9.7 MG/DL (8.5-10.1); CARBON DIOXIDE 25 MMOL/L (21-32); CHLORIDE 108 MMOL/L (98-107); SODIUM 143 MMOL/L (136-145)
--- NOTE | 2018-08-31 15:49 | Neurology Progress Note ---
Interim History Interim History ROS Limited/Unobtainable: No Complaints: Lower Back Pain Events: Consented to have IR Kyphoplasty Interim History Now awaiting IR procedure for Monday, was able to consent this morning but now wont make it onto list until Monday. Will manage pain inpatient over the weekend and monitor neurvascular status. Objective Physical Exam Last Vital Signs Date Time Temp Pulse Resp B/P (MAP) Pulse Ox O2 Delivery O2 Flow Rate FiO2 08/31/18 12:00 98.0 114 17 152/88 (109) 98 08/31/18 09:00 Room Air Laboratory Tests Test 08/30/18 16:20 08/31/18 11:55 Prothrombin Time 10.6 SEC (9.30-11.50) Prothromb Time International Ratio 1.0 (0.9-1.1) Activated Partial Thromboplast Time 23 SEC (23-33) White Blood Count 15.2 K/UL (4.8-10.8) H Red Blood Count 5.04 M/UL (4.20-5.40) Hemoglobin 14.2 G/DL (12.0-16.0) Hematocrit 43.3 % (37.0-47.0) Mean Corpuscular Volume 86 FL (80-99) Mean Corpuscular Hemoglobin 28.1 PG (27.0-31.0) Mean Corpuscular Hemoglobin Concent 32.7 G/DL (32.0-36.0) Red Cell Distribution Width 12.1 % (11.6-14.8) Platelet Count 325 K/UL (150-450) Mean Platelet Volume 5.7 FL (6.5-10.1) L Neutrophils (%) (Auto) 83.1 % (45.0-75.0) H Lymphocytes (%) (Auto) 7.5 % (20.0-45.0) L Monocytes (%) (Auto) 8.5 % (1.0-10.0) Eosinophils (%) (Auto) 0.4 % (0.0-3.0) Basophils (%) (Auto) 0.6 % (0.0-2.0) Sodium Level 143 MMOL/L (136-145) Potassium Level 5.0 MMOL/L (3.5-5.1) Chloride Level 108 MMOL/L (98-107) H Carbon Dioxide Level 25 MMOL/L (21-32) Anion Gap 10 mmol/L (5-15) Blood Urea Nitrogen 27 mg/dL (7-18) H Creatinine 1.0 MG/DL (0.55-1.30) Estimat Glomerular Filtration Rate mL/min (>60) Glucose Level 84 MG/DL (74-106) Calcium Level 9.7 MG/DL (8.5-10.1) General: well developed, well nourished, no acute distress Head: normocophalic, atraumatic Neck: no rigidity EENT: benign Neurologic Exam Mental Status: awake, oriented x4, normal cognition, normal recent memory, normal remote memory, preserved visuospatial function Speech: normal speech, no dysarthia Language: normal language, no aphasia Cranial Nerve II: fundus normal, visual burns, no papilledema Cranial Nerves III, IV, : PERRLA, EOMI Cranial Nerve V: normal facial sensations Cranial Nerve VII: no facial asymmetry, normal facial expressions Cranial Nerve VIII: normal hearing, no nystagmus Cranial Nerve IX: normal palate elevation Cranial Nerve X: no voice hoarseness Cranial Nerve XI: SCM symmetric Cranial Nerve XII: tongue midline Motor System: other - Right leg with increased tone 3/5 with increased proximal weakness secondary to lower back pain. LLE 5/5, UEs 5/5. No spasticity noted. Sensory: normal pinprick, normal light touch Coordination: normal finger to nose bilaterally Gait: other - Deferred secondary to pain. Impression/Recommendations Problems: (1) Lumbar compression fracture Assessment & Plan: Consented for IR Kyphoplasty at [facility] on Monday - will stay inpatient for weekend until procedure for pain management. (2) Intractable back pain Assessment & Plan: Still reporting pain today but it is mostly under control now. (3) Depression Assessment & Plan: As per son, and as per RN, patient initially refusing pain management. "I'm DNR so I'm going to anyway" Patient awake and in good spirits today. Status: doing well, stable Recommendations Continue Q4 Hr Neuro obs including neurovascular signs for LEs Await IR procedure. Manage pain with minimum possible narcotics Will follow over the weekend. Valarie Douglass N.P. Aug 31, 2018 15:49
[2018-08-31 16:00] VITALS: BP 96/52
--- NOTE | 2018-08-31 16:45 | Consultation ---
DATE OF CONSULTATION: 08/31/2018 INFECTIOUS DISEASES CONSULTATION CONSULTING PHYSICIAN: Ramiro Diop M.D. REFERRING PHYSICIAN: Dr. Menjivar. REASON FOR CONSULTATION: For fever and clearance for surgery. HISTORY OF PRESENTING ILLNESS: This is an 88-year-old lady with history of breast cancer, status post right-sided mastectomy with subsequent biopsy results that turned up negative, paroxysmal supraventricular tachycardia, hyperlipidemia, mitral valve prolapse, who came in with back pain as well as right hip pain. She also had some fever. Recently, she had some diarrhea for which she was treated with ciprofloxacin and that resolved, but now she has had urinary retention and an Infectious Diseases consultation has been obtained for fever and clearance for surgery. PAST MEDICAL HISTORY: 1. History of breast cancer, status post right-sided mastectomy. 2. Osteoarthritis. 3. Mitral valve prolapse. 4. Hyperlipidemia. 5. Paroxysmal supraventricular tachycardia. SOCIAL HISTORY: She does not smoke, drink, or use drugs. FAMILY HISTORY: Noncontributory. REVIEW OF SYSTEMS: RESPIRATORY: She has fevers. No chills. No cough. No shortness of breath or chest pain. CARDIAC: No chest pain. No palpitations. No dizziness. No syncope. GASTROINTESTINAL: No nausea. No vomiting. No abdominal pain or diarrhea. GENITOURINARY: She had urinary retention, but no dysuria or hematuria. MEDICATIONS: As an inpatient, she is on hydralazine, atorvastatin, Percocet, Tylenol, morphine. ALLERGIES: She is allergic to strawberry. PHYSICAL EXAMINATION: VITAL SIGNS: Temperature of 97.8, T-max of 100, pulse of 127 respiratory rate 22, blood pressure 154/86, O2 saturation of 96%. HEENT: Pupils equally reactive to light and accommodation. Mouth appears clean without thrush. NECK: Supple. No adenopathy. No JVD. CARDIOVASCULAR: Regular rate and rhythm. No murmurs. LUNGS: Clear to auscultation bilaterally. No crackles. No wheezes. ABDOMEN: Soft and nontender. No organomegaly. EXTREMITIES: No cyanosis, no clubbing, no edema. LABORATORY AND DIAGNOSTIC DATA: White count of 12.6 on 08/29/2018, 11.2 on 08/30/2018; hemoglobin 14.1, hematocrit 42.2, MCV 87, platelet count of 334,000 with neutrophils of 77%. Sodium 143, potassium 3.6, chloride 107, bicarbonate 26, BUN 24, creatinine 1.2, glucose 109, calcium 9.4, total bilirubin 0.3, AST 22, ALT 25, alkaline phosphatase 94. CK of 92. Total protein 7.9, albumin 3.8. Lipase of 294. UA is showing 0-[address] of the pelvis showed no acute abnormality. CT of the lumbar spine is showing significant compression fracture of L3 vertebral body, less severe compression fracture of L4 and L2, minimal degenerative changes noted. Lumbar spine MRI is showing acute superior endplate compression fracture of L2 vertebral body, L3 compression fracture, L4 endplate compression fracture, bladder distention noted with bilateral right greater than left hydronephrosis. ASSESSMENT: This is an 88-year-old lady with history of paroxysmal supraventricular tachycardia, breast cancer, mitral valve prolapse, hyperlipidemia, who comes in with back pain and is found to have fevers. 1. Fevers. She also has some urinary retention. We would be concerned regarding a urinary tract infection. 2. Leukocytosis is improving. 3. Lumbar compression fracture of L2, L3, and L4. 4. Mitral valve prolapse. PLAN: 1. We will order urine culture. 2. We will start the patient on Zosyn. 3. Hold off on kyphoplasty until fevers improve and cultures are completed. 4. We will order blood cultures. I would like to thank Dr. Menjivar for this consultation. Ramiro Diop M.D. DR: Yakov JOB#: [id number] CC:
[2018-08-31 20:00] VITALS: BP 156/86
[2018-09-01] VITALS: BP 150/86
[2018-09-01 04:00] VITALS: BP 133/70
[2018-09-01 07:29] LABS: BASOPHILS % (AUTO) 1.1 % (0.0-2.0); EOSINOPHILS % (AUTO) 2.9 % (0.0-3.0); HEMATOCRIT 39.1 % (37.0-47.0); HEMOGLOBIN 13.3 G/DL (12.0-16.0); LYMPHOCYTES % (AUTO) 11.6 % (20.0-45.0); MEAN CORPUSCULAR VOLUME 85 FL (80-99); MONOCYTES % (AUTO) 10.4 % (1.0-10.0); NEUTROPHILS % (AUTO) 74.1 % (45.0-75.0); PLATELET COUNT 327 K/UL (150-450); RED BLOOD COUNT 4.62 M/UL (4.20-5.40); RED CELL DISTRIBUTION WIDTH 11.7 % (11.6-14.8); WHITE BLOOD COUNT 10.2 K/UL (4.8-10.8)
[2018-09-01 08:00] VITALS: BP 134/82
[2018-09-01 08:00] LABS: ANION GAP 10 mmol/L (5-15); BLOOD UREA NITROGEN 19 mg/dL (7-18); CALCIUM 8.8 MG/DL (8.5-10.1); CARBON DIOXIDE 28 MMOL/L (21-32); CHLORIDE 104 MMOL/L (98-107); CREATININE 0.9 MG/DL (0.55-1.30); POTASSIUM 3.1 MMOL/L (3.5-5.1); SODIUM 142 MMOL/L (136-145)
--- NOTE | 2018-09-01 10:22 | Infectious Diseases Prog Note ---
Assessment/Plan Assessment/Plan antibiotics : zosyn A 1. fever resolved 2. r/o UTI 3. urinary retention 4. lumbar fracture 5. mitral valve prolapse P 1. continue zosyn 2. will follow up cultures Subjective Constitutional: Denies: fever, chills Respiratory: Denies: shortness of breath, dry cough Gastrointestinal/Abdominal: Denies: nausea, vomiting, diarrhea Musculoskeletal: Reports: pain - in back Allergies: Coded Allergies: STRAWBERRY (Verified Allergy, Unknown, Rash, 08/29/18) Objective Vital Signs Last 24 Hour Vital Signs Date Time Temp Pulse Resp B/P (MAP) Pulse Ox O2 Delivery O2 Flow Rate FiO2 09/01/18 09:00 Room Air 09/01/18 08:00 97.8 90 20 134/82 (99) 99 09/01/18 04:00 97.6 87 17 133/70 (91) 98 09/01/18 00:00 97.7 100 18 150/86 (107) 97 08/31/18 21:00 Room Air 08/31/18 20:00 97.8 100 19 156/86 (109) 95 08/31/18 16:00 98.6 73 19 96/52 (67) 95 08/31/18 12:00 98.0 114 17 152/88 (109) 98 Height (Feet): 5 Height (Inches): 4.00 Weight (Pounds): 119 Respiratory/Chest: lungs clear Cardiovascular: normal rate, regular rhythm, no gallop/murmur Abdomen: soft, non tender Extremities: no edema Laboratory Tests Test 08/31/18 11:55 09/01/18 06:30 White Blood Count 15.2 K/UL (4.8-10.8) H 10.2 K/UL (4.8-10.8) Red Blood Count 5.04 M/UL (4.20-5.40) 4.62 M/UL (4.20-5.40) Hemoglobin 14.2 G/DL (12.0-16.0) 13.3 G/DL (12.0-16.0) Hematocrit 43.3 % (37.0-47.0) 39.1 % (37.0-47.0) Mean Corpuscular Volume 86 FL (80-99) 85 FL (80-99) Mean Corpuscular Hemoglobin 28.1 PG (27.0-31.0) 28.8 PG (27.0-31.0) Mean Corpuscular Hemoglobin Concent 32.7 G/DL (32.0-36.0) 34.0 G/DL (32.0-36.0) Red Cell Distribution Width 12.1 % (11.6-14.8) 11.7 % (11.6-14.8) Platelet Count 325 K/UL (150-450) 327 K/UL (150-450) Mean Platelet Volume 5.7 FL (6.5-10.1) L 5.6 FL (6.5-10.1) L Neutrophils (%) (Auto) 83.1 % (45.0-75.0) H 74.1 % (45.0-75.0) Lymphocytes (%) (Auto) 7.5 % (20.0-45.0) L 11.6 % (20.0-45.0) L Monocytes (%) (Auto) 8.5 % (1.0-10.0) 10.4 % (1.0-10.0) H Eosinophils (%) (Auto) 0.4 % (0.0-3.0) 2.9 % (0.0-3.0) Basophils (%) (Auto) 0.6 % (0.0-2.0) 1.1 % (0.0-2.0) Sodium Level 143 MMOL/L (136-145) 142 MMOL/L (136-145) Potassium Level 5.0 MMOL/L (3.5-5.1) 3.1 MMOL/L (3.5-5.1) L Chloride Level 108 MMOL/L (98-107) H 104 MMOL/L (98-107) Carbon Dioxide Level 25 MMOL/L (21-32) 28 MMOL/L (21-32) Anion Gap 10 mmol/L (5-15) 10 mmol/L (5-15) Blood Urea Nitrogen 27 mg/dL (7-18) H 19 mg/dL (7-18) H Creatinine 1.0 MG/DL (0.55-1.30) 0.9 MG/DL (0.55-1.30) Estimat Glomerular Filtration Rate mL/min (>60) mL/min (>60) Glucose Level 84 MG/DL (74-106) 96 MG/DL (74-106) Calcium Level 9.7 MG/DL (8.5-10.1) 8.8 MG/DL (8.5-10.1) Current Medications Medications (Trade) Dose Ordered Sig/Blank Route PRN Reason Start Time Stop Time Status Last Admin Dose Admin Acetaminophen (Tylenol) 650 mg Q6H PRN ORAL Mild Pain/Temp > 100.5 08/30/18 03:15 09/29/18 03:14 Atorvastatin Calcium (Lipitor) 10 mg BEDTIME ORAL 08/30/18 21:00 09/29/18 20:59 08/31/18 22:01 Hydralazine HCl (Apresoline) 25 mg Q6HR PRN ORAL For High Blood Pressure 08/31/18 05:30 09/30/18 05:29 08/31/18 05:44 Morphine Sulfate (Morphine Sulfate) 4 mg Q6HR PRN IVP Severe Pain (Pain Scale 7-10) 08/30/18 03:15 09/06/18 03:14 08/30/18 05:16 Oxycodone/ Acetaminophen (Percocet 10/325) 1 tab Q4H PRN ORAL Severe Pain (Pain Scale 7-10) 08/30/18 09:30 09/06/18 09:29 08/30/18 09:55 Oxycodone/ Acetaminophen (Percocet 5-325) 1 tab Q4H PRN ORAL Moderate Pain (Pain Scale 4-6) 08/30/18 09:30 09/06/18 09:29 Piperacillin Sod/ Tazobactam Sod 3.375 gm/Dextrose 100 ml @ 25 mls/hr EVERY 8 HOURS IV 08/31/18 11:00 09/05/18 10:59 09/01/18 05:18 Ramiro Diop MD Sep 01, 2018 10:22
[2018-09-01 12:00] VITALS: BP 158/80
--- NOTE | 2018-09-01 13:22 | General Progress Note ---
Assessment/Plan Status: stable Assessment/Plan #Acute lumbar compression fractures -continue supportive care -plan for Kyphoplasty once medically cleared -Percocet prn -Morphine IV for breakthrough pain -Neurology following -PT/OT eval #Fever #Sepsis -unclear source at this time, possible urinary -ID eval appreciated, started on Zosyn -f/u blood and urine cultures #Acute urinary retention -continue Kaye catheter #SARAH -resolved -continue to monitor renal function -avoid nephrotoxic meds #PSVT #Hyperlipidemia #MVP -currently sinus tachycardia -continue Lipitor VTE PPx Heparin SCD Full Code. Disposition: Once the patient is stable to leave the hospital, I anticipate the patient will likely be discharged to the following environment:SNF I spent 45 minutes on this patient's case, and 23 minutes was dedicated to counseling and/or care coordination. Time of note may not reflect time of encounter. Subjective Date patient seen: Sep 01, 2018 Time patient seen: 13:22 ROS Limited/Unobtainable: No Constitutional: Reports: malaise, weakness HEENT: Reports: no symptoms Cardiovascular: Reports: no symptoms Respiratory: Reports: no symptoms Gastrointestinal/Abdominal: Reports: no symptoms Genitourinary: Reports: no symptoms Neurologic/Psychiatric: Reports: no symptoms Endocrine: Reports: no symptoms Hematologic/Lymphatic: Reports: no symptoms Allergies: Coded Allergies: STRAWBERRY (Verified Allergy, Unknown, Rash, 08/29/18) Subjective Events of overnight noted ; chart reviewed by me Patient notes some discomfort- ok when she lies flat No chest pain or dyspnea Objective Last 24 Hour Vital Signs Date Time Temp Pulse Resp B/P (MAP) Pulse Ox O2 Delivery O2 Flow Rate FiO2 09/01/18 12:00 98.1 85 20 158/80 (106) 98 09/01/18 09:00 Room Air 09/01/18 08:00 97.8 90 20 134/82 (99) 99 09/01/18 04:00 97.6 87 17 133/70 (91) 98 09/01/18 00:00 97.7 100 18 150/86 (107) 97 08/31/18 21:00 Room Air 08/31/18 20:00 97.8 100 19 156/86 (109) 95 08/31/18 16:00 98.6 73 19 96/52 (67) 95 Intake and Output 08/31/18 09/01/18 18:59 06:59 Intake Total 100 ml 805 ml Output Total 850 ml Balance -750 ml 805 ml IV Total 100 ml 125 ml Other 680 ml Output Urine Total 850 ml # Voids 1 Laboratory Tests 09/01/18 06:30: White Blood Count 10.2, Red Blood Count 4.62, Hemoglobin 13.3, Hematocrit 39.1, Mean Corpuscular Volume 85, Mean Corpuscular Hemoglobin 28.8, Mean Corpuscular Hemoglobin Concent 34.0, Red Cell Distribution Width 11.7, Platelet Count 327, Mean Platelet Volume 5.6L, Neutrophils (%) (Auto) 74.1, Lymphocytes (%) (Auto) 11.6L, Monocytes (%) (Auto) 10.4H, Eosinophils (%) (Auto) 2.9, Basophils (%) ( Auto) 1.1, Sodium Level 142, Potassium Level 3.1L, Chloride Level 104, Carbon Dioxide Level 28, Anion Gap 10, Blood Urea Nitrogen 19H, Creatinine 0.9, Estimat Glomerular Filtration Rate , Glucose Level 96, Calcium Level 8.8 Height (Feet): 5 Height (Inches): 4.00 Weight (Pounds): 119 General Appearance: no apparent distress, alert EENT: PERRL/EOMI, normal ENT inspection, TMs normal Neck: non-tender, normal alignment, supple Cardiovascular: normal peripheral pulses, normal rate, regular rhythm Respiratory/Chest: chest wall non-tender, lungs clear, normal breath sounds Abdomen: normal bowel sounds, non tender, soft Pelvis: normal external exam Extremities: normal range of motion, non-tender Edema: no edema noted Arm (L), no edema noted Arm (R) Neurologic: alert, responsive, normal mood/affect Skin: normal pigmentation Lymphatic: normal anterior cervical (L), normal anterior cervical (R) Amado Kline MD Sep 01, 2018 13:22
--- NOTE | 2018-09-01 15:43 | Neurology Progress Note ---
Interim History Interim History ROS Limited/Unobtainable: No Complaints: Lower Back Pain Events: Consented to have IR Kyphoplasty Interim History Pain largely under control at this time. Review of Systems All Systems: reviewed and negative except above Objective Physical Exam Last Vital Signs Date Time Temp Pulse Resp B/P (MAP) Pulse Ox O2 Delivery O2 Flow Rate FiO2 09/01/18 12:00 98.1 85 20 158/80 (106) 98 09/01/18 09:00 Room Air Laboratory Tests Test 09/01/18 06:30 White Blood Count 10.2 K/UL (4.8-10.8) Red Blood Count 4.62 M/UL (4.20-5.40) Hemoglobin 13.3 G/DL (12.0-16.0) Hematocrit 39.1 % (37.0-47.0) Mean Corpuscular Volume 85 FL (80-99) Mean Corpuscular Hemoglobin 28.8 PG (27.0-31.0) Mean Corpuscular Hemoglobin Concent 34.0 G/DL (32.0-36.0) Red Cell Distribution Width 11.7 % (11.6-14.8) Platelet Count 327 K/UL (150-450) Mean Platelet Volume 5.6 FL (6.5-10.1) L Neutrophils (%) (Auto) 74.1 % (45.0-75.0) Lymphocytes (%) (Auto) 11.6 % (20.0-45.0) L Monocytes (%) (Auto) 10.4 % (1.0-10.0) H Eosinophils (%) (Auto) 2.9 % (0.0-3.0) Basophils (%) (Auto) 1.1 % (0.0-2.0) Sodium Level 142 MMOL/L (136-145) Potassium Level 3.1 MMOL/L (3.5-5.1) L Chloride Level 104 MMOL/L (98-107) Carbon Dioxide Level 28 MMOL/L (21-32) Anion Gap 10 mmol/L (5-15) Blood Urea Nitrogen 19 mg/dL (7-18) H Creatinine 0.9 MG/DL (0.55-1.30) Estimat Glomerular Filtration Rate mL/min (>60) Glucose Level 96 MG/DL (74-106) Calcium Level 8.8 MG/DL (8.5-10.1) Neurologic Exam Motor System: other - RLE still with increased tone, weaker 3/5 than LLE 5/5- full sensation to both, light touch. UEs full strength. Impression/Recommendations Problems: (1) Lumbar compression fracture Assessment & Plan: Consented for IR kyphoplasty on Monday, September 03, 2018 (2) Intractable back pain Assessment & Plan: Awake and alert, fully oriented today. Still reporting pain but tolerable with pain medications. She is anxious about the procedure on Monday but hopeful. (3) Depression Assessment & Plan: As per son, and as per RN, patient initially refusing pain management. "I'm DNR so I'm going to anyway" Patient convinced to allow pain management but voicing resistance to treatment. Patient appears to be open to this intervention and in good spirits, hopeful it will remove the pain from her life Status: doing well, stable Recommendations Continue Q 4 Hourly neurovascular observations of right leg Pain management to continue. Agree with IR Kyphoplasty scheduled for Monday, September 03, 2018 at [facility]. Valarie Douglass N.P. Sep 01, 2018 15:42
[2018-09-01 15:58] VITALS: BP 143/81
[2018-09-01 20:00] VITALS: BP 153/70
[2018-09-02] VITALS: BP 140/74
[2018-09-02 04:00] VITALS: BP 129/75
[2018-09-02 08:00] VITALS: BP 147/72
[2018-09-02 12:00] VITALS: BP 154/81
--- NOTE | 2018-09-02 13:05 | Neurology Progress Note ---
Interim History Interim History ROS Limited/Unobtainable: No Complaints: Lower Back Pain Events: waiting for Kyphoplasty Objective Physical Exam Last Vital Signs Date Time Temp Pulse Resp B/P (MAP) Pulse Ox O2 Delivery O2 Flow Rate FiO2 09/02/18 12:00 98.1 95 16 154/81 (105) 96 09/02/18 09:00 Room Air Impression/Recommendations Problems: (1) Diarrhea (2) Renal insufficiency (3) Lumbar compression fracture (4) Intractable back pain (5) Depression Status: stable Alexander Ferguson M.D. Sep 02, 2018 13:04
--- NOTE | 2018-09-02 13:14 | Infectious Diseases Prog Note ---
Assessment/Plan Assessment/Plan A 1. fever resolved 2. r/o UTI 3. urinary retention 4. lumbar fracture 5. mitral valve prolapse P 1. continue zosyn 2. will follow up cultures Subjective ROS Limited/Unobtainable: Yes Constitutional: Reports: no symptoms Respiratory: Reports: no symptoms Gastrointestinal/Abdominal: Reports: no symptoms Genitourinary: Reports: no symptoms Musculoskeletal: Reports: pain, other - in lower back Allergies: Coded Allergies: STRAWBERRY (Verified Allergy, Unknown, Rash, 08/29/18) Objective Vital Signs Last 24 Hour Vital Signs Date Time Temp Pulse Resp B/P (MAP) Pulse Ox O2 Delivery O2 Flow Rate FiO2 09/02/18 12:00 98.1 95 16 154/81 (105) 96 09/02/18 09:00 Room Air 09/02/18 08:00 98.0 88 19 147/72 (97) 97 09/02/18 04:00 97.5 88 20 129/75 (93) 98 09/02/18 00:00 98.1 87 20 140/74 (96) 98 09/01/18 21:00 Room Air 09/01/18 20:00 98.1 89 18 153/70 (97) 96 09/01/18 15:58 97.7 95 20 143/81 (101) 98 Height (Feet): 5 Height (Inches): 4.00 Weight (Pounds): 119 General Appearance: no acute distress HEENT: mucous membranes moist Respiratory/Chest: lungs clear Cardiovascular: normal rate Abdomen: soft, non tender Extremities: no edema Neurologic/Psychiatric: alert, oriented x 3, responsive Microbiology Date/Time Source Procedure Growth Status 08/31/18 11:55 Blood Blood Culture - Preliminary NO GROWTH AFTER 24 HOURS Resulted 09/01/18 01:45 Urine,Clean Catch Urine Culture - Preliminary NO GROWTH AFTER 24 HOURS Resulted Current Medications Medications (Trade) Dose Ordered Sig/Blank Route PRN Reason Start Time Stop Time Status Last Admin Dose Admin Acetaminophen (Tylenol) 650 mg Q6H PRN ORAL Mild Pain/Temp > 100.5 08/30/18 03:15 09/29/18 03:14 09/02/18 01:15 Atorvastatin Calcium (Lipitor) 10 mg BEDTIME ORAL 08/30/18 21:00 09/29/18 20:59 09/01/18 21:19 Hydralazine HCl (Apresoline) 25 mg Q6HR PRN ORAL For High Blood Pressure 08/31/18 05:30 09/30/18 05:29 08/31/18 05:44 Morphine Sulfate (Morphine Sulfate) 4 mg Q6HR PRN IVP Severe Pain (Pain Scale 7-10) 08/30/18 03:15 09/06/18 03:14 08/30/18 05:16 Oxycodone/ Acetaminophen (Percocet 10/325) 1 tab Q4H PRN ORAL Severe Pain (Pain Scale 7-10) 08/30/18 09:30 09/06/18 09:29 08/30/18 09:55 Oxycodone/ Acetaminophen (Percocet 5-325) 1 tab Q4H PRN ORAL Moderate Pain (Pain Scale 4-6) 08/30/18 09:30 09/06/18 09:29 Piperacillin Sod/ Tazobactam Sod 3.375 gm/Dextrose 100 ml @ 25 mls/hr EVERY 8 HOURS IV 08/31/18 11:00 09/05/18 10:59 09/02/18 13:00 Quan Khan MD Sep 02, 2018 13:14
--- NOTE | 2018-09-02 15:46 | General Progress Note ---
Assessment/Plan Status: stable Assessment/Plan #Acute lumbar compression fractures -continue supportive care -plan for Kyphoplasty once medically cleared -Percocet prn -Morphine IV for breakthrough pain -Neurology following- recs appreciated -PT/OT #Fever #Sepsis -unclear source at this time, possible urinary -ID eval appreciated, started on Zosyn -f/u blood and urine cultures #Acute urinary retention -continue Kaye catheter #SARAH -resolved -continue to monitor renal function -avoid nephrotoxic meds #PSVT #Hyperlipidemia #MVP -currently sinus tachycardia -continue Lipitor VTE PPx Heparin SCD Full Code. Disposition: Once the patient is stable to leave the hospital, I anticipate the patient will likely be discharged to the following environment:SNF I spent 45 minutes on this patient's case, and 23 minutes was dedicated to counseling and/or care coordination. Time of note may not reflect time of encounter. Subjective Date patient seen: Sep 02, 2018 Time patient seen: 15:33 ROS Limited/Unobtainable: No Constitutional: Reports: no symptoms HEENT: Reports: no symptoms Cardiovascular: Reports: no symptoms Respiratory: Reports: no symptoms Gastrointestinal/Abdominal: Reports: no symptoms Genitourinary: Reports: no symptoms Neurologic/Psychiatric: Reports: other - back pain Endocrine: Reports: no symptoms Hematologic/Lymphatic: Reports: no symptoms Allergies: Coded Allergies: STRAWBERRY (Verified Allergy, Unknown, Rash, 08/29/18) All Systems: reviewed and negative except above Subjective Events of overnight noted ; chart reviewed by me Patient notes some discomfort- ok when she lies flat No chest pain or dyspnea Objective Last 24 Hour Vital Signs Date Time Temp Pulse Resp B/P (MAP) Pulse Ox O2 Delivery O2 Flow Rate FiO2 09/02/18 12:00 98.1 95 16 154/81 (105) 96 09/02/18 09:00 Room Air 09/02/18 08:00 98.0 88 19 147/72 (97) 97 09/02/18 04:00 97.5 88 20 129/75 (93) 98 09/02/18 00:00 98.1 87 20 140/74 (96) 98 09/01/18 21:00 Room Air 09/01/18 20:00 98.1 89 18 153/70 (97) 96 09/01/18 15:58 97.7 95 20 143/81 (101) 98 Intake and Output 09/01/18 09/02/18 18:59 06:59 Intake Total 175 ml 500 ml Output Total 500 ml 800 ml Balance -325 ml -300 ml Intake Oral 500 ml IV Total 175 ml Output Urine Total 500 ml 800 ml Height (Feet): 5 Height (Inches): 4.00 Weight (Pounds): 119 General Appearance: WD/WN, no apparent distress, other - resting comfortably EENT: PERRL/EOMI, normal ENT inspection, TMs normal, pharynx normal Neck: non-tender Cardiovascular: normal peripheral pulses, normal rate, regular rhythm Respiratory/Chest: chest wall non-tender, lungs clear Abdomen: normal bowel sounds, non tender, soft Pelvis: normal external exam Extremities: non-tender Edema: no edema noted Arm (L), no edema noted Arm (R) 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
[2018-09-02 16:00] VITALS: BP 126/75
[2018-09-02 20:00] VITALS: BP 145/77
[2018-09-03] VITALS (10 sets, daily range): BP systolic 134–180; BP diastolic 70–87
--- NOTE | 2018-09-03 09:55 | General Progress Note ---
Assessment/Plan Assessment/Plan #Acute lumbar compression fractures -continue supportive care -plan for Kyphoplasty today -Percocet prn -Morphine IV for breakthrough pain -Neurology following- recs appreciated -PT/OT #Fever and leukocytosis #Sepsis of unclear etiology -unclear source at this time, possible urinary but cultures negative so fat -Continue Zosyn for now -ID following #Acute urinary retention -continue Kaye catheter #SARAH -resolved -continue to monitor renal function -avoid nephrotoxic meds #PSVT #Hyperlipidemia #MVP -currently sinus tachycardia -continue Lipitor VTE PPx Heparin SCD Full Code. Disposition: Once the patient is stable to leave the hospital, I anticipate the patient will likely be discharged to the following environment:SNF I spent 45 minutes on this patient's case, and 23 minutes was dedicated to counseling and/or care coordination. Subjective Date patient seen: Sep 03, 2018 Time patient seen: 09:46 ROS Limited/Unobtainable: No Constitutional: Denies: chills, fever Cardiovascular: Denies: chest pain, edema Respiratory: Denies: cough, orthopnea Gastrointestinal/Abdominal: Denies: abdomen distended, abdominal pain Neurologic/Psychiatric: Denies: anxiety Endocrine: Denies: excessive sweating Hematologic/Lymphatic: Denies: anemia Allergies: Coded Allergies: STRAWBERRY (Verified Allergy, Unknown, Rash, 08/29/18) Subjective Medicine follow up for acute lumbar compression fractures. No current complaints. Kaye remains in place Objective Last 24 Hour Vital Signs Date Time Temp Pulse Resp B/P (MAP) Pulse Ox O2 Delivery O2 Flow Rate FiO2 09/03/18 04:00 97.6 83 18 141/74 (96) 97 09/03/18 00:51 98.0 96 18 151/78 (102) 97 09/02/18 22:53 Room Air 09/02/18 20:00 98.9 92 18 145/77 (99) 96 09/02/18 16:00 98.1 86 19 126/75 (92) 97 09/02/18 12:00 98.1 95 16 154/81 (105) 96 Intake and Output 09/02/18 09/03/18 19:00 07:00 Intake Total 200 ml 75 ml Output Total 1000 ml Balance 200 ml -925 ml IV Total 200 ml 75 ml Output Urine Total 1000 ml # Voids 1 # Bowel Movements 1 Height (Feet): 5 Height (Inches): 4.00 Weight (Pounds): 119 General Appearance: no apparent distress, alert EENT: PERRL/EOMI, normal ENT inspection Neck: normal alignment, supple, normal inspection Cardiovascular: normal rate, regular rhythm Respiratory/Chest: lungs clear Abdomen: normal bowel sounds, non tender, soft, no organomegaly 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
--- NOTE | 2018-09-03 12:23 | General Progress Note ---
Progress Note Progress Note Patient seen and examined on 08/30/2018 and in the a.m. 08/31/2018 Consulted for possible kyphoplasty on a 88-year-old female inpatient. She has experienced low back pain over the past several months, with marked worsening in severity 3 days prior to admission. Patient states pain is in the lower lumbar region, with radiation into the right side Lumbar spine MRI performed after admission, demonstrates acute edema involving the L2 vertebral body, with minimal compression deformity. There is also acute edema involving the L4 vertebral body with mild superior endplate compression deformity, as well as markedly compressed L3 vertebral body with some edema. Findings thought to represent acute L2 compression fracture, mixed acute on chronic L3 and L4 compression fractures. On exam, she is tender in the lower spine, centrally and to the right side. Initial labs demonstrated some leukocytosis, since resolved. Patient has been worked up by ID and has been cleared.. Past medical history is remarkable for supraventricular tachycardia, hyperlipidemia, breast cancer, mitral valve prolapse Patient is allergic strawberries Lab values are acceptable Patient appears to be a good candidate for percutaneous kyphoplasty of L2, L3, and L4, with the most pertinent level probably being L2. Alternatives, benefits , and risks, including but not limited to hemorrhage, infection, treatment failure, nerve damage discussed with patient and son. They wish to proceed Lucho Perrin MD Sep 03, 2018 12:23
[2018-09-03] MEDS ORDERED: Lidocaine 1% Plain 30 ml INJ PRN (13:00)
[2018-09-03] MEDS ORDERED: Omnipaque-300 100ml vial INJ PRN (13:00)
--- NOTE | 2018-09-03 13:02 | Infectious Diseases Prog Note ---
Assessment/Plan Assessment/Plan A 1. fever resolved 2. r/o UTI 3. urinary retention 4. lumbar fracture 5. mitral valve prolapse P 1. Discontinue Zosyn 2. will have Kyphoplasty today Subjective ROS Limited/Unobtainable: No Constitutional: Reports: no symptoms Respiratory: Reports: no symptoms Cardiovascular: Reports: no symptoms Gastrointestinal/Abdominal: Reports: no symptoms Genitourinary: Reports: no symptoms Musculoskeletal: Reports: pain, other - with movement Allergies: Coded Allergies: STRAWBERRY (Verified Allergy, Unknown, Rash, 08/29/18) Objective Vital Signs Last 24 Hour Vital Signs Date Time Temp Pulse Resp B/P (MAP) Pulse Ox O2 Delivery O2 Flow Rate FiO2 09/03/18 08:15 Room Air 09/03/18 08:00 98.1 88 18 149/81 (103) 96 09/03/18 04:00 97.6 83 18 141/74 (96) 97 09/03/18 00:51 98.0 96 18 151/78 (102) 97 09/02/18 22:53 Room Air 09/02/18 20:00 98.9 92 18 145/77 (99) 96 09/02/18 16:00 98.1 86 19 126/75 (92) 97 Height (Feet): 5 Height (Inches): 4.00 Weight (Pounds): 119 HEENT: mucous membranes moist Respiratory/Chest: lungs clear Cardiovascular: normal rate Abdomen: soft, non tender Genitourinary: other - Kaye catheter Extremities: no edema Neurologic/Psychiatric: alert, oriented x 3, responsive Microbiology Date/Time Source Procedure Growth Status 09/01/18 01:45 Urine,Clean Catch Urine Culture - Final NO GROWTH AFTER 48 HOURS Complete Current Medications Medications (Trade) Dose Ordered Sig/Blank Route PRN Reason Start Time Stop Time Status Last Admin Dose Admin Acetaminophen (Tylenol) 650 mg Q6H PRN ORAL Mild Pain/Temp > 100.5 08/30/18 03:15 09/29/18 03:14 09/02/18 01:15 Atorvastatin Calcium (Lipitor) 10 mg BEDTIME ORAL 08/30/18 21:00 09/29/18 20:59 09/02/18 21:18 Hydralazine HCl (Apresoline) 25 mg Q6HR PRN ORAL For High Blood Pressure 08/31/18 05:30 09/30/18 05:29 08/31/18 05:44 Iohexol (OMNIPAQUE-300 100ml) 200 ml ONCE ONCE INJ 09/03/18 13:00 09/03/18 13:01 UNV Lidocaine HCl (Xylocaine 1% 30ml) 60 ml ONCE ONCE INJ 09/03/18 13:00 09/03/18 13:01 UNV Morphine Sulfate (Morphine Sulfate) 4 mg Q6HR PRN IVP Severe Pain (Pain Scale 7-10) 08/30/18 03:15 09/06/18 03:14 08/30/18 05:16 Oxycodone/ Acetaminophen (Percocet 10/325) 1 tab Q4H PRN ORAL Severe Pain (Pain Scale 7-10) 08/30/18 09:30 09/06/18 09:29 08/30/18 09:55 Oxycodone/ Acetaminophen (Percocet 5-325) 1 tab Q4H PRN ORAL Moderate Pain (Pain Scale 4-6) 08/30/18 09:30 09/06/18 09:29 Piperacillin Sod/ Tazobactam Sod 3.375 gm/Dextrose 100 ml @ 25 mls/hr EVERY 8 HOURS IV 08/31/18 11:00 09/05/18 10:59 09/03/18 05:36 Quan Khan MD Sep 03, 2018 13:02
[2018-09-03] MEDS ORDERED: Alfentanil 2ml Inj ONE (13:34)
[2018-09-03] MEDS ORDERED: Midazolam 2mg/2ml Inj ONE (13:34)
[2018-09-03 13:35] LABS: ANION GAP 9 mmol/L (5-15); BLOOD UREA NITROGEN 13 mg/dL (7-18); CALCIUM 9.3 MG/DL (8.5-10.1); CARBON DIOXIDE 30 MMOL/L (21-32); CHLORIDE 103 MMOL/L (98-107); CREATININE 0.8 MG/DL (0.55-1.30); POTASSIUM 3.4 MMOL/L (3.5-5.1); SODIUM 142 MMOL/L (136-145)
[2018-09-03] MEDS ORDERED: Lidocaine 1% Plain 30 ml INJ ONE (13:35)
[2018-09-03] MEDS ORDERED: Sodium Chloride 10ml vial INJ ONE (13:35)
[2018-09-03 13:47] LABS: EOSINOPHILS % (AUTO) 2.2 % (0.0-3.0); HEMATOCRIT 42.8 % (37.0-47.0); HEMOGLOBIN 13.9 G/DL (12.0-16.0); LYMPHOCYTES % (AUTO) 13.7 % (20.0-45.0); MEAN CORPUSCULAR VOLUME 86 FL (80-99); MONOCYTES % (AUTO) 9.8 % (1.0-10.0); NEUTROPHILS % (AUTO) 73.4 % (45.0-75.0); PLATELET COUNT 354 K/UL (150-450); RED BLOOD COUNT 4.98 M/UL (4.20-5.40); RED CELL DISTRIBUTION WIDTH 11.7 % (11.6-14.8); WHITE BLOOD COUNT 9.4 K/UL (4.8-10.8)
[2018-09-03] MEDS ORDERED: LR 1000ml 1,000 ML IVLG SCH (13:52)
[2018-09-03] MEDS ORDERED: Midazolam 2mg/2ml Inj IVP PRN (14:00)
[2018-09-03] MEDS ORDERED: LR 1000ml ONE (14:00)
[2018-09-03] MEDS ORDERED: Propofol 1,000mg/ 100ml btl IV ONE (14:00)
[2018-09-03] MEDS ORDERED: Meperidine 50mg/ml Inj(FOR RIGORS ONLY) IVP PRN (14:00)
[2018-09-03] MEDS ORDERED: Labetalol 5mg/ml 20ml vial IV PRN (14:00)
[2018-09-03] MEDS ORDERED: Metoclopramide 10mg/2ml Inj IVP PRN (14:00)
[2018-09-03] MEDS ORDERED: HYDROcodone/Acetamin 7.5/325 tab ORAL PRN (14:00)
[2018-09-03] MEDS ORDERED: oxyCODONE HCL/Acetaminophen 5/325mg ORAL PRN (14:00)
[2018-09-03] MEDS ORDERED: Atropine Sulfate 0.4mg/ml inj IVP PRN (14:00)
[2018-09-03] MEDS ORDERED: HYDROcodone/Acetamin 5/325 tab ORAL PRN (14:00)
[2018-09-03] MEDS ORDERED: Acetaminophen (Non formulary) 100 ML IV SCH (14:00)
[2018-09-03] MEDS ORDERED: fentaNYL 100 mcg/2 mL IV PRN (14:00)
[2018-09-03] MEDS ORDERED: Hydromorphone 0.5mg/0.5ml inj IVP PRN (14:00)
[2018-09-03] MEDS ORDERED: LORazepam Inj 2mg/ml 1ml IV PRN (14:00)
[2018-09-03] MEDS ORDERED: DiphenhydrAMINE 50mg/ml Inj IVP PRN (14:00)
[2018-09-03] MEDS ORDERED: Ketorolac 30mg Inj IV PRN ×2 (14:00)
--- NOTE | 2018-09-03 14:01 | Anethesia Preoperative Eval ---
Anesthesia Pre-op PMH/ROS General Date of Evaluation: Sep 03, 2018 Time of Evaluation: 13:56 Anesthesiologist: Aydin ASA Score: ASA 3 Mallampati Score Class I : Soft palate, uvula, fauces, pillars visible Class II: Soft palate, uvula, fauces visible Class III: Soft palate, base of uvula visible Class IV: Only hard plate visible Mallampati Classification: Class II Surgeon: Aydin Diagnosis: L3 Compression Fx, L2, L4 Lesser Compression Fxs Surgical Procedure: L3 Khyphoplasty, Posssible L2, L4 Anesthesia History: none Family History: no anesthesia problems Allergies: Coded Allergies: STRAWBERRY (Verified Allergy, Unknown, Rash, 08/29/18) Medications: see eMAR Patient NPO?: Yes Past Medical History Cardiovascular: Reports: HTN, valve dz - Murmur, arrhythmia - Hx SVT, other - HL Gastrointestinal/Genitourinary: Reports: other - R Breast CA PSxH Narrative: R Mastectomy, L Leg ORIF Anesthesia Pre-op Phys. Exam Physician Exam Last Vital Signs Date Time Temp Pulse Resp B/P (MAP) Pulse Ox O2 Delivery O2 Flow Rate FiO2 09/03/18 08:15 Room Air 09/03/18 08:00 98.1 88 18 149/81 (103) 96 Constitutional: NAD Neurologic: CN 2-12 intact Cardiovascular: RRR Respiratory: CTA Gastrointestinal: S/NT/ND Airway Exam Mallampati Score: Class II MO: limited ROM: limited Teeth: missing, intact Anesthesia Pre-op A/P Labs Hematology Test 09/03/18 13:15 White Blood Count 9.4 K/UL (4.8-10.8) Red Blood Count 4.98 M/UL (4.20-5.40) Hemoglobin 13.9 G/DL (12.0-16.0) Hematocrit 42.8 % (37.0-47.0) Mean Corpuscular Volume 86 FL (80-99) Mean Corpuscular Hemoglobin 27.8 PG (27.0-31.0) Mean Corpuscular Hemoglobin Concent 32.4 G/DL (32.0-36.0) Red Cell Distribution Width 11.7 % (11.6-14.8) Platelet Count 354 K/UL (150-450) Mean Platelet Volume 5.4 FL (6.5-10.1) L Neutrophils (%) (Auto) 73.4 % (45.0-75.0) Lymphocytes (%) (Auto) 13.7 % (20.0-45.0) L Monocytes (%) (Auto) 9.8 % (1.0-10.0) Eosinophils (%) (Auto) 2.2 % (0.0-3.0) Basophils (%) (Auto) 1.0 % (0.0-2.0) Chemistry Test 09/03/18 13:15 Sodium Level 142 MMOL/L (136-145) Potassium Level 3.4 MMOL/L (3.5-5.1) L Chloride Level 103 MMOL/L (98-107) Carbon Dioxide Level 30 MMOL/L (21-32) Anion Gap 9 mmol/L (5-15) Blood Urea Nitrogen 13 mg/dL (7-18) Creatinine 0.8 MG/DL (0.55-1.30) Estimat Glomerular Filtration Rate mL/min (>60) Glucose Level 88 MG/DL (74-106) Calcium Level 9.3 MG/DL (8.5-10.1) Risk Assessment & Plan Assessment: ASA 3 Plan: GA Status Change Before Surgery: No Pre-Antibiotics Dru Gram Ancef IV Given Within 1 Hr of Incision: Yes Time Given: 14:31 Julio César Perrin MD Sep 03, 2018 14:01
--- NOTE | 2018-09-03 14:04 | Immediate Post-Op Evaluation ---
Immediate Post-Op Evalulation Immediate Post-Op Evalulation Procedure: L3, L2, L4 Khyphoplasty Date of Evaluation: Sep 03, 2018 Time of Evaluation: 17:20 IV Fluids: 600 LR Blood Products: 0 Estimated Blood Loss: 50 Urinary Output: 50 Blood Pressure Systolic: 178 Blood Pressure Diastolic: 89 Pulse Rate: 91 Respiratory Rate: 18 O2 Sat by Pulse Oximetry: 98 Temperature (Fahrenheit): 97.4 Pain Score (1-10): 2 Nausea: No Vomiting: No Complications 0 Patient Status: awake, reacts, patent, extubated, none Hydration Status: adequate Dru Gram Ancef IV Given Within 1 Hr of Incision: Yes Time Given: 14:31 Julio César Perrin MD Sep 03, 2018 14:03
--- NOTE | 2018-09-03 14:04 | 48 Hour Post Anesthesia Eval ---
Post Anesthesia Evaluation Procedure: L3 Khyphoplasty, Posssible L2, L4 Date of Evaluation: Sep 03, 2018 Airway: patent Nausea: No Vomiting: No Pain Intensity: 2 Hydration Status: adequate Cardiopulmonary Status: Stable Mental Status/LOC: patient returned to baseline Follow-up Care/Observations: 0 Post-Anesthesia Complications: 0 Follow-up care needed: N/A Julio César Perrin MD Sep 03, 2018 14:04
--- NOTE | 2018-09-03 14:59 | Neurology Progress Note ---
Interim History Interim History ROS Limited/Unobtainable: No Complaints: Lower Back Pain Events: waiting for Kyphoplasty Interim History No significant events - pain managed over the weekend. Objective Physical Exam Last Vital Signs Date Time Temp Pulse Resp B/P (MAP) Pulse Ox O2 Delivery O2 Flow Rate FiO2 09/03/18 13:58 98 8 6.0 09/03/18 12:00 97.5 149/74 (99) 95 09/03/18 08:15 Room Air Laboratory Tests Test 09/03/18 13:15 White Blood Count 9.4 K/UL (4.8-10.8) Red Blood Count 4.98 M/UL (4.20-5.40) Hemoglobin 13.9 G/DL (12.0-16.0) Hematocrit 42.8 % (37.0-47.0) Mean Corpuscular Volume 86 FL (80-99) Mean Corpuscular Hemoglobin 27.8 PG (27.0-31.0) Mean Corpuscular Hemoglobin Concent 32.4 G/DL (32.0-36.0) Red Cell Distribution Width 11.7 % (11.6-14.8) Platelet Count 354 K/UL (150-450) Mean Platelet Volume 5.4 FL (6.5-10.1) L Neutrophils (%) (Auto) 73.4 % (45.0-75.0) Lymphocytes (%) (Auto) 13.7 % (20.0-45.0) L Monocytes (%) (Auto) 9.8 % (1.0-10.0) Eosinophils (%) (Auto) 2.2 % (0.0-3.0) Basophils (%) (Auto) 1.0 % (0.0-2.0) Sodium Level 142 MMOL/L (136-145) Potassium Level 3.4 MMOL/L (3.5-5.1) L Chloride Level 103 MMOL/L (98-107) Carbon Dioxide Level 30 MMOL/L (21-32) Anion Gap 9 mmol/L (5-15) Blood Urea Nitrogen 13 mg/dL (7-18) Creatinine 0.8 MG/DL (0.55-1.30) Estimat Glomerular Filtration Rate mL/min (>60) Glucose Level 88 MG/DL (74-106) Calcium Level 9.3 MG/DL (8.5-10.1) General: well developed, well nourished, no acute distress Head: normocophalic, atraumatic Neck: no rigidity EENT: benign Neurologic Exam Mental Status: awake, oriented x4, normal cognition, normal recent memory, normal remote memory, preserved visuospatial function Speech: normal speech, no dysarthia Language: normal language, no aphasia Cranial Nerve II: fundus normal, visual burns, no papilledema Cranial Nerves III, IV, : PERRLA, EOMI Cranial Nerve V: normal facial sensations Cranial Nerve VII: no facial asymmetry, normal facial expressions Cranial Nerve VIII: normal hearing, no nystagmus Cranial Nerve IX: normal palate elevation Cranial Nerve X: no voice hoarseness Cranial Nerve XI: SCM symmetric Cranial Nerve XII: tongue midline Motor System: other - Right leg with increased tone 3/5 with increased proximal weakness secondary to lower back pain. LLE 5/5, UEs 5/5. No spasticity noted. Sensory: normal pinprick, normal light touch Coordination: normal finger to nose bilaterally Gait: other - Deferred secondary to pain. Impression/Recommendations Problems: (1) Lumbar compression fracture Assessment & Plan: Consented for IR Kyphoplasty at [facility] on Monday - will stay inpatient for weekend until procedure for pain management. (2) Intractable back pain Assessment & Plan: Still reporting pain today but it is mostly under control now. (3) Depression Assessment & Plan: As per son, and as per RN, patient initially refusing pain management. "I'm DNR so I'm going to anyway" Patient awake and in good spirits today. Status: stable Recommendations Continue Q4 Hr Neuro obs including neurovascular signs for LEs Await IR procedure. Manage pain with minimum possible narcotics For Kyphoplasty tomorrow morning. Valarie Douglass N.P. Sep 03, 2018 14:59
--- NOTE | 2018-09-03 17:01 | Brief Operative Note ---
Immediate Post Operative Note Operative Note Chief Complaint: back pain Pre-op Diagnosis: painful compression fractures Procedure: L2, L3, L4 kyphoplasty Post-op Diagnosis: same Surgeon: Yadira Perrin Anesthesiologist: Julio César Perrin Anesthesia: general Specimen: yes - drill specimens from the vertebral bodies Complications: none Condition: stable Fluids: none Estimated Blood Loss: none Implant(s) used?: No Lucho Perrin MD Sep 03, 2018 17:01
--- NOTE | 2018-09-03 19:31 | Cardiology Report ---
APPROVED REPORT EKG Measurement Heart [id number] CT [id number] Sinus tachycardia Possible Left atrial enlargement Borderline ECG
[2018-09-03] MEDS: HydrALAZINE 25mg tab ORAL PRN (22:06)
[2018-09-04] VITALS: BP 146/75
[2018-09-04 04:00] VITALS: BP 128/70
[2018-09-04 08:00] VITALS: BP 142/83
--- NOTE | 2018-09-04 08:45 | 48 Hour Post Anesthesia Eval ---
Post Anesthesia Evaluation Procedure: L3, L2, L4 Khyphoplasty Date of Evaluation: Sep 04, 2018 Airway: patent Nausea: No Vomiting: No Pain Intensity: 0 Hydration Status: adequate Cardiopulmonary Status: at baseline Mental Status/LOC: patient returned to baseline Post-Anesthesia Complications: 0 Follow-up care needed: N/A - further care as per primaary team Johanne Yang MD Sep 04, 2018 08:45
--- NOTE | 2018-09-04 09:00 | Diagnostic Imaging Report ---
Indication: Back pain, painful lumbar compression fracture Technique: Informed consent obtained prior to commencement of the procedure from patient and patient's son. Procedure performed under general anesthesia. Procedural timeout performed. Total sterile technique, including sterile gloves and hand hygiene, hat, mask, sterile gown, large sterile drape, and preparation with 2% chlorhexidine utilized. After local anesthesia with 1% lidocaine, trocar cannulae were inserted through each of the 2 pedicles of the L2 vertebral segment into the posterior vertebral body under biplane fluoroscopic guidance. This was repeated at L3 and L4. A drill was inserted through each of the 6 cannulate, creating a track for balloon placement within the vertebral bodies. Balloons were then placed through each of the cannulae and inflated to the appropriate degree of inflation under fluoroscopic guidance. Cement was then injected into all 6 of the cannulae until appropriate fill was achieved. The cannulae were then withdrawn. The right L2 cannula left a small tail of cement within the pedicle. Dressings were applied. The patient tolerated the procedure well, without immediate complication. Total fluoroscopy time 508.2 seconds. Total dose area product 1.29 mGym2 Number of images: 22 Comparison: Reference made to lumbar spine MRI dated 08/30/2018 Findings: Intraprocedural images document needle placement, balloon inflation, and cement injection Impression: Apparently successful fluoroscopy-guided L2, L3, and L4 kyphoplasty for painful vertebral compression fractures, as described
--- NOTE | 2018-09-04 10:10 | Infectious Diseases Prog Note ---
Assessment/Plan Assessment/Plan antibiotics : none A 1. fever resolved 2. leucocytosis resolved 3. urinary retention resolved 4. lumbar fracture s/p L2,3,4 kyphoplasty 5. mitral valve prolapse P 1. continue off antibiotics Subjective Constitutional: Denies: fever, chills Respiratory: Denies: shortness of breath, dry cough Gastrointestinal/Abdominal: Denies: nausea, vomiting, diarrhea Musculoskeletal: Reports: pain Allergies: Coded Allergies: STRAWBERRY (Verified Allergy, Unknown, Rash, 08/29/18) Objective Vital Signs Last 24 Hour Vital Signs Date Time Temp Pulse Resp B/P (MAP) Pulse Ox O2 Delivery O2 Flow Rate FiO2 09/04/18 09:00 Room Air 09/04/18 08:00 97.7 108 18 142/83 (102) 97 09/04/18 06:50 107 09/04/18 04:00 98.3 110 18 128/70 (89) 97 09/04/18 00:00 98.5 105 18 146/75 (98) 97 09/03/18 22:06 165/84 09/03/18 21:00 Room Air 09/03/18 20:00 98.5 99 17 165/84 (111) 97 09/03/18 17:33 97.4 90 16 174/87 98 Room Air 09/03/18 17:19 86 16 178/86 98 Room Air 09/03/18 17:14 91 16 180/87 99 Room Air 09/03/18 17:09 97.4 103 16 178/82 98 Room Air 09/03/18 17:07 91 18 98 09/03/18 13:58 98 8 6.0 09/03/18 12:00 97.5 87 18 149/74 (99) 95 Height (Feet): 5 Height (Inches): 4.00 Weight (Pounds): 119 Respiratory/Chest: lungs clear Cardiovascular: normal rate, regular rhythm, no gallop/murmur Abdomen: soft, non tender Extremities: no edema Laboratory Tests Test 09/03/18 13:15 White Blood Count 9.4 K/UL (4.8-10.8) Red Blood Count 4.98 M/UL (4.20-5.40) Hemoglobin 13.9 G/DL (12.0-16.0) Hematocrit 42.8 % (37.0-47.0) Mean Corpuscular Volume 86 FL (80-99) Mean Corpuscular Hemoglobin 27.8 PG (27.0-31.0) Mean Corpuscular Hemoglobin Concent 32.4 G/DL (32.0-36.0) Red Cell Distribution Width 11.7 % (11.6-14.8) Platelet Count 354 K/UL (150-450) Mean Platelet Volume 5.4 FL (6.5-10.1) L Neutrophils (%) (Auto) 73.4 % (45.0-75.0) Lymphocytes (%) (Auto) 13.7 % (20.0-45.0) L Monocytes (%) (Auto) 9.8 % (1.0-10.0) Eosinophils (%) (Auto) 2.2 % (0.0-3.0) Basophils (%) (Auto) 1.0 % (0.0-2.0) Sodium Level 142 MMOL/L (136-145) Potassium Level 3.4 MMOL/L (3.5-5.1) L Chloride Level 103 MMOL/L (98-107) Carbon Dioxide Level 30 MMOL/L (21-32) Anion Gap 9 mmol/L (5-15) Blood Urea Nitrogen 13 mg/dL (7-18) Creatinine 0.8 MG/DL (0.55-1.30) Estimat Glomerular Filtration Rate mL/min (>60) Glucose Level 88 MG/DL (74-106) Calcium Level 9.3 MG/DL (8.5-10.1) Current Medications Medications (Trade) Dose Ordered Sig/Blank Route PRN Reason Start Time Stop Time Status Last Admin Dose Admin Acetaminophen (Tylenol) 650 mg Q6H PRN ORAL Mild Pain/Temp > 100.5 08/30/18 03:15 09/29/18 03:14 09/02/18 01:15 Atorvastatin Calcium (Lipitor) 10 mg BEDTIME ORAL 08/30/18 21:00 09/29/18 20:59 09/03/18 22:05 Hydralazine HCl (Apresoline) 25 mg Q6HR PRN ORAL For High Blood Pressure 08/31/18 05:30 09/30/18 05:29 09/03/18 22:06 Iohexol (OMNIPAQUE-300 100ml) 200 ml ONCE PRN INJ RADIOLOGY 09/03/18 13:00 09/05/18 12:59 Lidocaine HCl (Xylocaine 1% 30ml) 60 ml ONCE PRN INJ RADIOLOGY 09/03/18 13:00 09/05/18 12:59 Morphine Sulfate (Morphine Sulfate) 4 mg Q6HR PRN IVP Severe Pain (Pain Scale 7-10) 08/30/18 03:15 09/06/18 03:14 08/30/18 05:16 Oxycodone/ Acetaminophen (Percocet 10/325) 1 tab Q4H PRN ORAL Severe Pain (Pain Scale 7-10) 08/30/18 09:30 09/06/18 09:29 08/30/18 09:55 Oxycodone/ Acetaminophen (Percocet 5-325) 1 tab Q4H PRN ORAL Moderate Pain (Pain Scale 4-6) 08/30/18 09:30 09/06/18 09:29 Ramiro Diop MD Sep 04, 2018 10:10
[2018-09-04 12:00] VITALS: BP 127/73
[2018-09-04 16:00] VITALS: BP 129/75
--- NOTE | 2018-09-04 17:08 | General Progress Note ---
Progress Note Progress Note Patient seen this morning, uncertain as to extent of decreased in back pain as she has not been moving much and is not in much pain at rest. However, she was able to sit up and stated that this was much easier and much less painful than preprocedure Lucho Perrin MD Sep 04, 2018 17:08
--- NOTE | 2018-09-04 18:36 | General Progress Note ---
Assessment/Plan Assessment/Plan #Acute lumbar compression fractures -continue supportive care -S/p L2, L3, L4 Khyphoplasty -Percocet prn -Morphine IV for breakthrough pain -PT eval -Dispo planning -Neurology following- recs appreciated #Fever and leukocytosis #Sepsis of unclear etiology -unclear source at this time, possible urinary but cultures negative so fat -Monitor off antibiotics -ID following #Acute urinary retention -Voiding trial today #SARAH -resolved -continue to monitor renal function -avoid nephrotoxic meds #PSVT #Hyperlipidemia #MVP -currently sinus tachycardia -continue Lipitor VTE PPx Heparin SCD Full Code. Disposition: Once the patient is stable to leave the hospital, I anticipate the patient will likely be discharged to the following environment:SNF I spent 45 minutes on this patient's case, and 23 minutes was dedicated to counseling and/or care coordination. Subjective Date patient seen: Sep 04, 2018 Time patient seen: 09:11 ROS Limited/Unobtainable: No Constitutional: Denies: chills, fever HEENT: Denies: eye pain Cardiovascular: Denies: chest pain Respiratory: Denies: cough Gastrointestinal/Abdominal: Denies: abdomen distended Genitourinary: Denies: burning Allergies: Coded Allergies: STRAWBERRY (Verified Allergy, Unknown, Rash, 08/29/18) Subjective Medicine follow up for acute lumbar compression fractures. Underwent kyphoplasty yesterday, denies any back pain or LE paresthesia or weakness Objective Last 24 Hour Vital Signs Date Time Temp Pulse Resp B/P (MAP) Pulse Ox O2 Delivery O2 Flow Rate FiO2 09/04/18 16:00 98.2 113 21 129/75 (93) 99 09/04/18 12:00 98.5 111 19 127/73 (91) 99 09/04/18 09:00 Room Air 09/04/18 08:00 97.7 108 18 142/83 (102) 97 09/04/18 06:50 107 09/04/18 04:00 98.3 110 18 128/70 (89) 97 09/04/18 00:00 98.5 105 18 146/75 (98) 97 09/03/18 22:06 165/84 09/03/18 21:00 Room Air 09/03/18 20:00 98.5 99 17 165/84 (111) 97 Intake and Output 09/03/18 09/04/18 19:00 07:00 Intake Total 700 ml 360 ml Output Total 400 ml 550 ml Balance 300 ml -190 ml Intake Oral 360 ml IV Total 700 ml Output Urine Total 350 ml 550 ml Estimated Blood Loss 50 ml # Voids 1 Height (Feet): 5 Height (Inches): 4.00 Weight (Pounds): 119 General Appearance: no apparent distress, alert EENT: TMs normal Neck: non-tender, normal alignment, supple Cardiovascular: normal rate, regular rhythm Respiratory/Chest: lungs clear, normal breath sounds, no respiratory distress Abdomen: non tender, soft, no mass Extremities: normal range of motion, non-tender, normal inspection 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
[2018-09-04 20:00] VITALS: BP 129/67
--- NOTE | 2018-09-04 23:42 | Neurology Progress Note ---
Interim History Interim History ROS Limited/Unobtainable: No Complaints: Lower Back Pain Events: S/P IR Kyphoplasty Review of Systems Neuro Review of Systems Mild pain and weakness but no numbness, tingling, paresthesia Objective Physical Exam Last Vital Signs Date Time Temp Pulse Resp B/P (MAP) Pulse Ox O2 Delivery O2 Flow Rate FiO2 09/04/18 16:00 98.2 113 21 129/75 (93) 99 09/04/18 09:00 Room Air 09/03/18 13:58 6.0 General: well developed, well nourished, no acute distress Head: normocophalic, atraumatic Neck: no rigidity EENT: benign Neurologic Exam Mental Status: awake, oriented x4, normal cognition, normal recent memory, normal remote memory, preserved visuospatial function Speech: normal speech, no dysarthia Language: normal language, no aphasia Cranial Nerve II: fundus normal, visual burns, no papilledema Cranial Nerves III, IV, : PERRLA, EOMI Cranial Nerve V: normal facial sensations Cranial Nerve VII: no facial asymmetry, normal facial expressions Cranial Nerve VIII: normal hearing, no nystagmus Cranial Nerve IX: normal palate elevation Cranial Nerve X: no voice hoarseness Cranial Nerve XI: SCM symmetric Cranial Nerve XII: tongue midline Motor System: other - Right leg with increased tone 3/5 with increased proximal weakness secondary to lower back pain. LLE 5/5, UEs 5/5. No spasticity noted. Sensory: normal pinprick, normal light touch Coordination: normal finger to nose bilaterally Gait: other - Deferred secondary to pain. Impression/Recommendations Problems: (1) Lumbar compression fracture Assessment & Plan: S/P IR Kyphoplasty- Resting comfortably in bed Pain Management Neurovascular obs of LEs Q4hrs OOB [facility] PT/OT Evals for Rehab (2) Intractable back pain Assessment & Plan: Still reporting pain today but it is mostly under control now. Continue pain management- Consider PREMEDICATION prior to PT/OT (3) Depression Assessment & Plan: As per son, and as per RN, patient initially refusing pain management. "I'm DNR so I'm going to anyway" Patient awake and in good spirits today. Patient remains positive and ready to start PT Status: stable Recommendations Continue Q4 Hr Neuro obs including neurovascular signs for LEs Await IR procedure. Manage pain with minimum possible narcotics For Kyphoplasty tomorrow morning. Valarie Douglass N.P. Sep 04, 2018 23:42
[2018-09-05] VITALS: BP 135/74
[2018-09-05 04:00] VITALS: BP 143/67
[2018-09-05 08:00] VITALS: BP 132/70
--- NOTE | 2018-09-05 10:18 | Infectious Diseases Prog Note ---
Assessment/Plan Assessment/Plan antibiotics : none A 1. fever resolved 2. leucocytosis resolved 3. urinary retention resolved 4. lumbar fracture s/p L2,3,4 kyphoplasty 5. mitral valve prolapse 6. PSVT P 1. continue off antibiotics Subjective Constitutional: Denies: fever, chills Respiratory: Denies: shortness of breath, dry cough Gastrointestinal/Abdominal: Denies: nausea, vomiting, diarrhea Musculoskeletal: Reports: pain - in back Allergies: Coded Allergies: STRAWBERRY (Verified Allergy, Unknown, Rash, 08/29/18) Objective Vital Signs Last 24 Hour Vital Signs Date Time Temp Pulse Resp B/P (MAP) Pulse Ox O2 Delivery O2 Flow Rate FiO2 09/05/18 09:00 Room Air 09/05/18 08:00 98.3 112 19 132/70 (90) 93 09/05/18 04:00 98.6 105 19 143/67 (92) 95 09/05/18 00:00 99.1 104 18 135/74 (94) 95 09/04/18 21:00 Room Air 09/04/18 20:00 99.5 109 17 129/67 (87) 94 09/04/18 16:00 98.2 113 21 129/75 (93) 99 09/04/18 12:00 98.5 111 19 127/73 (91) 99 Height (Feet): 5 Height (Inches): 4.00 Weight (Pounds): 98 Respiratory/Chest: lungs clear Cardiovascular: normal rate, regular rhythm, no gallop/murmur Abdomen: soft, non tender, other - back wound clean Extremities: no edema Current Medications Medications (Trade) Dose Ordered Sig/Blank Route PRN Reason Start Time Stop Time Status Last Admin Dose Admin Acetaminophen (Tylenol) 650 mg Q6H PRN ORAL Mild Pain/Temp > 100.5 08/30/18 03:15 09/29/18 03:14 09/02/18 01:15 Atorvastatin Calcium (Lipitor) 10 mg BEDTIME ORAL 08/30/18 21:00 09/29/18 20:59 09/04/18 20:52 Hydralazine HCl (Apresoline) 25 mg Q6HR PRN ORAL For High Blood Pressure 08/31/18 05:30 09/30/18 05:29 09/03/18 22:06 Iohexol (OMNIPAQUE-300 100ml) 200 ml ONCE PRN INJ RADIOLOGY 09/03/18 13:00 09/05/18 12:59 Lidocaine HCl (Xylocaine 1% 30ml) 60 ml ONCE PRN INJ RADIOLOGY 09/03/18 13:00 09/05/18 12:59 Morphine Sulfate (Morphine Sulfate) 4 mg Q6HR PRN IVP Severe Pain (Pain Scale 7-10) 08/30/18 03:15 09/06/18 03:14 08/30/18 05:16 Oxycodone/ Acetaminophen (Percocet 10/325) 1 tab Q4H PRN ORAL Severe Pain (Pain Scale 7-10) 08/30/18 09:30 09/06/18 09:29 08/30/18 09:55 Oxycodone/ Acetaminophen (Percocet 5-325) 1 tab Q4H PRN ORAL Moderate Pain (Pain Scale 4-6) 08/30/18 09:30 09/06/18 09:29 09/04/18 20:52 Ramiro Diop MD Sep 05, 2018 10:18
[2018-09-05 12:00] VITALS: BP 144/82
[2018-09-05] MEDS ORDERED: Morphine Sulfate 4mg/ml Inj (IV USE ONLY) IVP PRN ×2 (12:00)
--- NOTE | 2018-09-05 12:35 | Neurology Progress Note ---
Interim History Interim History ROS Limited/Unobtainable: No Complaints: Lower Back Pain Events: S/P IR Kyphoplasty Interim History Been seen by PT and OOB, pain is manageable at this time. No numbness, or tingling, improved strength on exam. Review of Systems All Systems: reviewed and negative except above Objective Physical Exam Last Vital Signs Date Time Temp Pulse Resp B/P (MAP) Pulse Ox O2 Delivery O2 Flow Rate FiO2 09/05/18 09:00 Room Air 09/05/18 08:00 98.3 112 19 132/70 (90) 93 09/03/18 13:58 6.0 General: well developed, well nourished, no acute distress Head: normocophalic, atraumatic Neck: no rigidity EENT: benign Neurologic Exam Mental Status: awake, oriented x4, normal cognition, normal recent memory, normal remote memory, preserved visuospatial function Speech: normal speech, no dysarthia Language: normal language, no aphasia Cranial Nerve II: fundus normal, visual burns, no papilledema Cranial Nerves III, IV, : PERRLA, EOMI Cranial Nerve V: normal facial sensations Cranial Nerve VII: no facial asymmetry, normal facial expressions Cranial Nerve VIII: normal hearing, no nystagmus Cranial Nerve IX: normal palate elevation Cranial Nerve X: no voice hoarseness Cranial Nerve XI: SCM symmetric Cranial Nerve XII: tongue midline Motor System: other - Right leg with increased tone 3/5 with increased proximal weakness secondary to lower back pain. LLE 5/5, UEs 5/5. No spasticity noted. Sensory: normal pinprick, normal light touch Coordination: normal finger to nose bilaterally Deep Tendon Reflexes: 1+ tricep (L), 1+ tricep (R); 2+ bicep (L), 2+ bicep (R) , 2+ brachioradialis (L), 2+ brachioradialis (R), 2+ knee (L), 2+ knee (R), 2+ ankle (L), 2+ ankle (R) Reflexes: flexor plantar (L), flexor plantar (R); extensor plantar (L), extensor plantar (R) Gait: other - OOB today- broad based slow gait at this time. Impression/Recommendations Problems: (1) Lumbar compression fracture Assessment & Plan: S/P IR Kyphoplasty- Resting comfortably in bed Pain Management Neurovascular obs of LEs Q4hrs OOB [facility] PT/OT Evals for Rehab (2) Intractable back pain Assessment & Plan: Still reporting pain today but it is mostly under control now. Patient has not been requesting PRN meds, discussed this with patient and son at bedside, stressing importance of being able to do rehab and what constitutes regular versus increasing usage of narcotic pain relievers., Continue pain management- Encourage PREMEDICATION prior to PT/OT (3) Depression Assessment & Plan: Progressing well with PT and in good spirits. Status: stable, progressing, tolerating diet Recommendations Continue Q4 Hr Neuro obs including neurovascular signs for LEs Manage pain with minimum possible narcotics S/P Kyphoplasty- Continue PT/OT as needed Plan for Subacute rehab when able, [facility] - [facility]. Valarie Douglass N.P. Sep 05, 2018 12:35
[2018-09-05 16:00] VITALS: BP 146/81
[2018-09-05 20:00] VITALS: BP 143/81
[2018-09-05] MEDS: oxyCODONE HCL/Acetaminophen 5/325mg ORAL PRN (22:56)
[2018-09-06] VITALS: BP 133/76
[2018-09-06 04:00] VITALS: BP 148/78
[2018-09-06 08:00] VITALS: BP 122/74
--- NOTE | 2018-09-06 10:50 | Infectious Diseases Prog Note ---
Assessment/Plan Assessment/Plan antibiotics : none A 1. fever resolved 2. leucocytosis resolved 3. urinary retention resolved 4. lumbar fracture s/p L2,3,4 kyphoplasty 5. mitral valve prolapse 6. PSVT P 1. continue off antibiotics Subjective Constitutional: Denies: fever, chills Respiratory: Denies: shortness of breath, dry cough Gastrointestinal/Abdominal: Denies: nausea, vomiting, diarrhea Musculoskeletal: Reports: pain - decreased Allergies: Coded Allergies: STRAWBERRY (Verified Allergy, Unknown, Rash, 08/29/18) Objective Vital Signs Last 24 Hour Vital Signs Date Time Temp Pulse Resp B/P (MAP) Pulse Ox O2 Delivery O2 Flow Rate FiO2 09/06/18 08:00 98.0 112 20 122/74 (90) 94 09/06/18 04:00 97.9 97 19 148/78 (101) 97 09/06/18 00:00 98.6 102 18 133/76 (95) 96 09/05/18 21:00 Room Air 09/05/18 20:00 97.3 110 18 143/81 (101) 94 09/05/18 16:00 98.6 104 20 146/81 (102) 95 09/05/18 12:00 98.4 88 16 144/82 (102) 95 Height (Feet): 5 Height (Inches): 4.00 Weight (Pounds): 98 Respiratory/Chest: lungs clear Cardiovascular: normal rate, regular rhythm, no gallop/murmur Abdomen: soft, non tender Extremities: no edema Current Medications Medications (Trade) Dose Ordered Sig/Blank Route PRN Reason Start Time Stop Time Status Last Admin Dose Admin Acetaminophen (Tylenol) 650 mg Q6H PRN ORAL Mild Pain/Temp > 100.5 08/30/18 03:15 09/29/18 03:14 09/02/18 01:15 Atorvastatin Calcium (Lipitor) 10 mg BEDTIME ORAL 08/30/18 21:00 09/29/18 20:59 09/05/18 21:18 Hydralazine HCl (Apresoline) 25 mg Q6HR PRN ORAL For High Blood Pressure 08/31/18 05:30 09/30/18 05:29 09/03/18 22:06 Morphine Sulfate (Morphine Sulfate) 4 mg Q6H PRN IVP Severe breakthrough pain 09/05/18 12:00 09/12/18 11:59 Oxycodone/ Acetaminophen (Percocet 10/325) 1 tab Q4H PRN ORAL Severe Pain (Pain Scale 7-10) 09/05/18 12:00 09/12/18 11:59 Oxycodone/ Acetaminophen (Percocet 5-325) 1 tab Q4H PRN ORAL Moderate Pain (Pain Scale 4-6) 09/05/18 12:00 09/12/18 11:59 09/05/18 22:56 Ramiro Diop MD Sep 06, 2018 10:50
[2018-09-06 12:00] VITALS: BP 128/85
--- NOTE | 2018-09-06 14:52 | General Progress Note ---
Assessment/Plan Assessment/Plan #Acute lumbar compression fractures -continue supportive care -S/p L2, L3, L4 Khyphoplasty -Percocet prn -can stop morphine -PT eval -Dispo planning -Neurology following- recs appreciated #Fever and leukocytosis #Sepsis of unclear etiology -unclear source at this time, possible urinary but cultures negative so fat -Monitor off antibiotics -ID following #Acute urinary retention -Kaye remains out #SARAH -resolved -continue to monitor renal function -avoid nephrotoxic meds #PSVT #Hyperlipidemia #MVP -continue to monitor VTE PPx Heparin SCD Full Code. Subjective Date patient seen: Sep 06, 2018 Time patient seen: 13:00 ROS Limited/Unobtainable: No HEENT: Denies: eye pain, blurred vision Cardiovascular: Denies: chest pain, edema Respiratory: Denies: cough, orthopnea Allergies: Coded Allergies: STRAWBERRY (Verified Allergy, Unknown, Rash, 08/29/18) Subjective Medicine follow up for acute lumbar compression fractures. Underwent kyphoplasty , denies any back pain or LE paresthesia or weakness. Ambulating with PT Objective Last 24 Hour Vital Signs Date Time Temp Pulse Resp B/P (MAP) Pulse Ox O2 Delivery O2 Flow Rate FiO2 09/06/18 12:00 98.8 111 19 128/85 (99) 94 09/06/18 09:00 Room Air 09/06/18 08:00 98.0 112 20 122/74 (90) 94 09/06/18 04:00 97.9 97 19 148/78 (101) 97 09/06/18 00:00 98.6 102 18 133/76 (95) 96 09/05/18 21:00 Room Air 09/05/18 20:00 97.3 110 18 143/81 (101) 94 09/05/18 16:00 98.6 104 20 146/81 (102) 95 Intake and Output 09/05/18 09/06/18 19:00 07:00 Intake Total 600 ml Output Total 200 ml Balance 600 ml -200 ml Other 600 ml Output Urine Total 200 ml # Voids 2 Height (Feet): 5 Height (Inches): 4.00 Weight (Pounds): 98 General Appearance: alert Neck: normal alignment, supple, normal inspection Cardiovascular: normal rate, regular rhythm Respiratory/Chest: lungs clear, normal breath sounds Abdomen: non tender, soft Molazadeh-Yazdi,Rupert MD Sep 06, 2018 14:52
[2018-09-06 16:00] VITALS: BP 139/78
--- NOTE | 2018-09-06 16:54 | Neurology Progress Note ---
Interim History Interim History ROS Limited/Unobtainable: No Complaints: Lower Back Pain Events: S/P IR Kyphoplasty and PT/OT Evals Review of Systems All Systems: reviewed and negative except above Objective Physical Exam Last Vital Signs Date Time Temp Pulse Resp B/P (MAP) Pulse Ox O2 Delivery O2 Flow Rate FiO2 09/06/18 16:00 98.9 103 20 139/78 (98) 96 09/06/18 09:00 Room Air 09/03/18 13:58 6.0 General: well developed, well nourished, no acute distress Head: normocophalic, atraumatic Neck: no rigidity EENT: benign Neurologic Exam Mental Status: awake, oriented x4, normal cognition, normal recent memory, normal remote memory, preserved visuospatial function Speech: normal speech, no dysarthia Language: normal language, no aphasia Cranial Nerve II: fundus normal, visual burns, no papilledema Cranial Nerves III, IV, : PERRLA, EOMI Cranial Nerve V: normal facial sensations Cranial Nerve VII: no facial asymmetry, normal facial expressions Cranial Nerve VIII: normal hearing, no nystagmus Cranial Nerve IX: normal palate elevation Cranial Nerve X: no voice hoarseness Cranial Nerve XI: SCM symmetric Cranial Nerve XII: tongue midline Motor System: no involuntary movement, no muscle wasting, other - Right leg now with no rigidity, 4-/5 now - LLE 4+/5, UEs bilaterally 5/5 Sensory: normal pinprick, normal light touch Coordination: normal finger to nose bilaterally Deep Tendon Reflexes: 2+ bicep (L), 2+ bicep (R), 2+ tricep (L), 2+ tricep (R) , 2+ brachioradialis (L), 2+ brachioradialis (R), 2+ knee (L), 2+ knee (R), 2+ ankle (L), 2+ ankle (R) Reflexes: flexor plantar (L), flexor plantar (R); extensor plantar (L), extensor plantar (R) Gait: other - Deferred secondary to pain. Impression/Recommendations Problems: (1) Lumbar compression fracture Assessment & Plan: Pain Management Neurovascular obs of LEs Q4hrs Continue work with PT/OT Discharge planning to SNF for subacute therapy at [facility] (2) Intractable back pain Assessment & Plan: Still reporting pain today but it is mostly under control now. Continue pain management- Consider PREMEDICATION prior to PT/OT (3) Depression Assessment & Plan: Remains positive and willing to start PT. Status: doing well, stable, progressing, tolerating diet Recommendations Continue Q4 Hr Neuro obs including neurovascular signs for LEs Await IR procedure. Manage pain with minimum possible narcotics For Kyphoplasty tomorrow morning. Valarie Douglass N.P. Sep 06, 2018 16:54
[2018-09-06 20:00] VITALS: BP 134/67
[2018-09-06] MEDS: oxyCODONE HCL/Acetaminophen 5/325mg ORAL PRN (22:32)
[2018-09-07] VITALS: BP 136/67
[2018-09-07 04:00] VITALS: BP 119/74
[2018-09-07 08:00] VITALS: BP 151/72
[2018-09-07 12:00] VITALS: BP 143/78
--- NOTE | 2018-09-07 12:13 | Infectious Diseases Prog Note ---
Assessment/Plan Assessment/Plan A 1. fever resolved 2. r/o UTI 3. urinary retention 4. lumbar fracture s/p Kyphoplasty 5. mitral valve prolapse P 1. observe of antibiotic Subjective ROS Limited/Unobtainable: No Constitutional: Reports: no symptoms Respiratory: Reports: no symptoms Cardiovascular: Reports: no symptoms Gastrointestinal/Abdominal: Reports: no symptoms Genitourinary: Reports: no symptoms Musculoskeletal: Reports: pain Allergies: Coded Allergies: STRAWBERRY (Verified Allergy, Unknown, Rash, 08/29/18) Objective Vital Signs Last 24 Hour Vital Signs Date Time Temp Pulse Resp B/P (MAP) Pulse Ox O2 Delivery O2 Flow Rate FiO2 09/07/18 09:00 Room Air 09/07/18 08:00 97.7 93 16 151/72 (98) 95 09/07/18 04:00 98.0 89 18 119/74 (89) 09/07/18 00:00 98.0 100 18 136/67 (90) 09/06/18 21:00 Room Air 09/06/18 20:00 99.0 100 18 134/67 (89) 09/06/18 16:00 98.9 103 20 139/78 (98) 96 Height (Feet): 5 Height (Inches): 4.00 Weight (Pounds): 98 General Appearance: no acute distress HEENT: mucous membranes moist Respiratory/Chest: lungs clear Cardiovascular: normal rate Abdomen: soft, non tender Extremities: no edema Neurologic/Psychiatric: alert, oriented x 3, responsive Current Medications Medications (Trade) Dose Ordered Sig/Blank Route PRN Reason Start Time Stop Time Status Last Admin Dose Admin Acetaminophen (Tylenol) 650 mg Q6H PRN ORAL Mild Pain/Temp > 100.5 08/30/18 03:15 09/29/18 03:14 09/02/18 01:15 Atorvastatin Calcium (Lipitor) 10 mg BEDTIME ORAL 08/30/18 21:00 09/29/18 20:59 09/06/18 20:40 Hydralazine HCl (Apresoline) 25 mg Q6HR PRN ORAL For High Blood Pressure 08/31/18 05:30 09/30/18 05:29 09/03/18 22:06 Oxycodone/ Acetaminophen (Percocet 10/325) 1 tab Q4H PRN ORAL Severe Pain (Pain Scale 7-10) 09/05/18 12:00 09/12/18 11:59 Oxycodone/ Acetaminophen (Percocet 5-325) 1 tab Q4H PRN ORAL Moderate Pain (Pain Scale 4-6) 09/05/18 12:00 09/12/18 11:59 09/06/18 22:32 Quan Khan MD Sep 07, 2018 12:13
--- NOTE | 2018-09-07 13:58 | General Progress Note ---
Assessment/Plan Assessment/Plan #Acute lumbar compression fractures -continue supportive care -S/p L2, L3, L4 Kyphoplasty -Percocet prn -PT following -Dispo planning, pending authorization for SNF placement, spoke with case management today -Neurology following- recs appreciated #Fever and leukocytosis #Sepsis of unclear etiology, resolved -continue to monitor off antibiotics -ID following #Acute urinary retention, resolved -Kaye remains out -monitor for retention #SARAH -resolved -check labs in AM -avoid nephrotoxic meds #PSVT #Hyperlipidemia #MVP -continue to monitor VTE PPx Heparin SCD Full Code. Subjective Date patient seen: Sep 07, 2018 Time patient seen: 13:45 Constitutional: Denies: fever HEENT: Denies: blurred vision Cardiovascular: Denies: chest pain, palpitations Respiratory: Denies: cough, orthopnea, shortness of breath Gastrointestinal/Abdominal: Denies: abdomen distended, abdominal pain Genitourinary: Denies: burning, discharge, frequency Neurologic/Psychiatric: Denies: anxiety Allergies: Coded Allergies: STRAWBERRY (Verified Allergy, Unknown, Rash, 08/29/18) Subjective Medicine follow up for acute lumbar compression fractures. Underwent kyphoplasty , denies any back pain or LE paresthesia or weakness. Awaiting insurance authorization for SNF. Objective Last 24 Hour Vital Signs Date Time Temp Pulse Resp B/P (MAP) Pulse Ox O2 Delivery O2 Flow Rate FiO2 09/07/18 12:00 98.5 95 16 143/78 (99) 97 09/07/18 09:00 Room Air 09/07/18 08:00 97.7 93 16 151/72 (98) 95 09/07/18 04:00 98.0 89 18 119/74 (89) 09/07/18 00:00 98.0 100 18 136/67 (90) 09/06/18 21:00 Room Air 09/06/18 20:00 99.0 100 18 134/67 (89) 09/06/18 16:00 98.9 103 20 139/78 (98) 96 Intake and Output 09/06/18 09/07/18 19:00 07:00 Intake Total 600 ml Balance 600 ml Intake Oral 600 ml # Voids 2 # Bowel Movements 1 Height (Feet): 5 Height (Inches): 4.00 Weight (Pounds): 98 General Appearance: no apparent distress, alert EENT: PERRL/EOMI Neck: normal alignment, normal inspection Cardiovascular: normal peripheral pulses, normal rate, regular rhythm Respiratory/Chest: lungs clear, normal breath sounds Abdomen: normal bowel sounds, non tender, soft Extremities: normal range of motion, non-tender Neurologic: operations representative II-XII grossly normal, no motor/sensory deficits, alert, oriented x 3 Rupert Harper MD Sep 07, 2018 13:58
[2018-09-07 16:00] VITALS: BP 141/72
[2018-09-07 20:00] VITALS: BP 141/72
--- NOTE | 2018-09-07 22:26 | Physician Query ---
Clarification is required for compliance, coding accuracy, and to reflect severity of illness for this patient Dear Dr. Harper Date: 09/07/2018 [address] EDIT and place X in appropriate box Patient is admitted on 08/29/2018 with Compression fracture and SARAH. Sepsis has been documented from 08/31/2018 onwards. On admission: WBC: 12.6 HR: 106 Rx: IV Zosyn (starting 08/31/2018) Please clarify if Sepsis was: [ ] Present on admission [ ] Not Present on admission [ ] Clinically undetermined Physician signature Date Please also document in your Progress Notes and/or Discharge Summary and indicate if the condition was present on admission. DAMIÁND
--- NOTE | 2018-09-07 22:41 | Neurology Progress Note ---
Interim History Interim History ROS Limited/Unobtainable: No Complaints: Lower Back Pain Events: S/P IR Kyphoplasty Interim History COntinues to work with PT Review of Systems All Systems: reviewed and negative except above Objective Physical Exam Last Vital Signs Date Time Temp Pulse Resp B/P (MAP) Pulse Ox O2 Delivery O2 Flow Rate FiO2 09/07/18 20:00 98.4 90 17 141/72 (95) 95 09/07/18 09:00 Room Air 09/03/18 13:58 6.0 General: well developed, well nourished, no acute distress Head: normocophalic, atraumatic Neck: no rigidity EENT: benign Neurologic Exam Mental Status: awake, oriented x4, normal cognition, normal recent memory, normal remote memory, preserved visuospatial function Speech: normal speech, no dysarthia Language: normal language, no aphasia Cranial Nerve II: fundus normal, visual burns, no papilledema Cranial Nerves III, IV, : PERRLA, EOMI Cranial Nerve V: normal facial sensations Cranial Nerve VII: no facial asymmetry, normal facial expressions Cranial Nerve VIII: normal hearing, no nystagmus Cranial Nerve IX: normal palate elevation Cranial Nerve X: no voice hoarseness Cranial Nerve XI: SCM symmetric Cranial Nerve XII: tongue midline Motor System: other - Right leg with increased tone 3/5 with increased proximal weakness secondary to lower back pain. LLE 5/5, UEs 5/5. No spasticity noted. Sensory: normal pinprick, normal light touch Coordination: normal finger to nose bilaterally Gait: other - Deferred secondary to pain. Impression/Recommendations Problems: (1) Lumbar compression fracture Assessment & Plan: S/P IR Kyphoplasty Monday09/02/18 - pain under control and progressing every day with PT Pain Management Neurovascular obs of LEs Q4hrs OOB [facility] PT/OT Evals for Rehab (2) Intractable back pain Assessment & Plan: Still reporting pain today but it is mostly under control now. Continue pain management- Consider PREMEDICATION prior to PT/OT (3) Depression Assessment & Plan: As per son, and as per RN, patient initially refusing pain management. "I'm DNR so I'm going to anyway" Patient awake and in good spirits today. Patient remains positive and ready to work with PT . Status: stable, progressing, tolerating diet, ambulating well Recommendations Continue Q4 Hr Neuro obs including neurovascular signs for LEs Discharge planning for [facility] Subacute Rehab Valarie Douglass N.P. Sep 07, 2018 22:41
[2018-09-08] VITALS: BP 118/80
[2018-09-08] MEDS: oxyCODONE HCL/Acetaminophen 5/325mg ORAL PRN ×2 (00:12→20:47)
[2018-09-08 04:00] VITALS: BP 113/74
[2018-09-08 07:38] LABS: BASOPHILS % (AUTO) 1.5 % (0.0-2.0); EOSINOPHILS % (AUTO) 3.4 % (0.0-3.0); HEMATOCRIT 38.4 % (37.0-47.0); HEMOGLOBIN 12.7 G/DL (12.0-16.0); LYMPHOCYTES % (AUTO) 15.7 % (20.0-45.0); MEAN CORPUSCULAR VOLUME 85 FL (80-99); MONOCYTES % (AUTO) 12.1 % (1.0-10.0); NEUTROPHILS % (AUTO) 67.4 % (45.0-75.0); PLATELET COUNT 319 K/UL (150-450); RED CELL DISTRIBUTION WIDTH 11.6 % (11.6-14.8); WHITE BLOOD COUNT 7.2 K/UL (4.8-10.8)
[2018-09-08 08:00] VITALS: BP 145/70
[2018-09-08 08:04] LABS: ANION GAP 5 mmol/L (5-15); BLOOD UREA NITROGEN 16 mg/dL (7-18); CALCIUM 8.9 MG/DL (8.5-10.1); CARBON DIOXIDE 33 MMOL/L (21-32); CHLORIDE 103 MMOL/L (98-107); CREATININE 0.7 MG/DL (0.55-1.30); POTASSIUM 3.2 MMOL/L (3.5-5.1); SODIUM 141 MMOL/L (136-145)
[2018-09-08 12:00] VITALS: BP 156/76
--- NOTE | 2018-09-08 13:38 | General Progress Note ---
Assessment/Plan Assessment/Plan Assessment/Plan Assessment/Plan Assessment/Plan #Acute lumbar compression fractures -continue supportive care -S/p L2, L3, L4 Kyphoplasty -Percocet prn -PT following -Dispo planning, pending authorization for SNF placement, spoke with case management today -Neurology following- recs appreciated #Fever and leukocytosis #Sepsis of unclear etiology, resolved -continue to monitor off antibiotics -ID following #Acute urinary retention, resolved -Kaye remains out -monitor for retention #SARAH -resolved -check labs in AM -avoid nephrotoxic meds #PSVT #Hyperlipidemia #MVP -continue to monitor VTE PPx Heparin SCD Full Code. Subjective Date patient seen: Sep 08, 2018 Time patient seen: 13:37 ROS Limited/Unobtainable: No Constitutional: Reports: no symptoms HEENT: Reports: no symptoms Cardiovascular: Reports: no symptoms Respiratory: Reports: no symptoms Gastrointestinal/Abdominal: Reports: no symptoms Genitourinary: Reports: no symptoms Neurologic/Psychiatric: Reports: no symptoms Endocrine: Reports: no symptoms Hematologic/Lymphatic: Reports: no symptoms Allergies: Coded Allergies: STRAWBERRY (Verified Allergy, Unknown, Rash, 08/29/18) Subjective No acute overnight events, no new complaints Objective Last 24 Hour Vital Signs Date Time Temp Pulse Resp B/P (MAP) Pulse Ox O2 Delivery O2 Flow Rate FiO2 09/08/18 09:00 Room Air 09/08/18 08:00 97.5 84 18 145/70 (95) 97 09/08/18 04:00 98.0 85 18 113/74 (87) 95 09/08/18 00:42 98.4 09/08/18 00:00 98.3 92 17 118/80 (93) 95 09/07/18 23:18 Room Air 09/07/18 20:00 98.4 90 17 141/72 (95) 95 09/07/18 16:00 98.2 82 17 141/72 (95) 96 Intake and Output 09/07/18 09/08/18 19:00 07:00 Intake Total 800 ml Balance 800 ml Intake Oral 800 ml # Voids 3 2 # Bowel Movements 1 Laboratory Tests 09/08/18 06:32: White Blood Count 7.2, Red Blood Count 4.50, Hemoglobin 12.7, Hematocrit 38.4, Mean Corpuscular Volume 85, Mean Corpuscular Hemoglobin 28.3, Mean Corpuscular Hemoglobin Concent 33.1, Red Cell Distribution Width 11.6, Platelet Count 319, Mean Platelet Volume 5.6L, Neutrophils (%) (Auto) 67.4, Lymphocytes (%) (Auto) 15.7L, Monocytes (%) (Auto) 12.1H, Eosinophils (%) (Auto) 3.4H, Basophils (%) ( Auto) 1.5, Sodium Level 141, Potassium Level 3.2L, Chloride Level 103, Carbon Dioxide Level 33H, Anion Gap 5, Blood Urea Nitrogen 16, Creatinine 0.7, Estimat Glomerular Filtration Rate , Glucose Level 91, Calcium Level 8.9 Height (Feet): 5 Height (Inches): 4.00 Weight (Pounds): 98 Objective General: alert, cooperative, no distress, appears stated age Head: normocephalic, without obvious abnormality, atraumatic Eyes: conjunctivae/corneas clear. PERRL, EOM's intact Throat: lips, mucosa, and tongue normal. MMM Neck: supple, symmetrical, trachea midline, and no JVD Lungs: clear to auscultation bilaterally Heart: regular rate and rhythm, S1, S2 normal, no murmur, click, rub or gallop Abdomen: soft, non-tender, non-distended, bowel sounds normal; no masses or organomegaly Extremities: extremities normal, atraumatic, no cyanosis or edema Pulses: 2+ and symmetric Skin: skin color, texture, turgor normal; no rashes or lesions Neurologic: grossly normal, no focal deficits Lainey Huston MD Sep 08, 2018 13:38
[2018-09-08 16:00] VITALS: BP 137/70
[2018-09-08 20:00] VITALS: BP 128/70
[2018-09-09] VITALS: BP 139/78
[2018-09-09 04:00] VITALS: BP 136/70
[2018-09-09 08:00] VITALS: BP 141/73
[2018-09-09 12:00] VITALS: BP 156/78
--- NOTE | 2018-09-09 13:28 | Infectious Diseases Prog Note ---
Assessment/Plan Assessment/Plan A 1. fever resolved 2. r/o UTI 3. urinary retention 4. lumbar fracture s/p Kyphoplasty 5. mitral valve prolapse P 1. observe of antibiotic Subjective ROS Limited/Unobtainable: No HEENT: Reports: no symptoms Respiratory: Reports: no symptoms Cardiovascular: Reports: no symptoms Gastrointestinal/Abdominal: Reports: no symptoms Musculoskeletal: Reports: no symptoms Allergies: Coded Allergies: STRAWBERRY (Verified Allergy, Unknown, Rash, 08/29/18) Objective Vital Signs Last 24 Hour Vital Signs Date Time Temp Pulse Resp B/P (MAP) Pulse Ox O2 Delivery O2 Flow Rate FiO2 09/09/18 09:00 Room Air 09/09/18 08:00 98.0 91 18 141/73 (95) 100 09/09/18 04:00 97.8 84 18 136/70 (92) 100 09/09/18 00:00 97.7 91 20 139/78 (98) 98 09/08/18 21:00 Room Air 09/08/18 20:00 98.7 97 18 128/70 (89) 98 09/08/18 16:00 98.6 92 19 137/70 (92) 95 Height (Feet): 5 Height (Inches): 4.00 Weight (Pounds): 98 HEENT: mucous membranes moist Respiratory/Chest: lungs clear Cardiovascular: normal rate Abdomen: soft, non tender Extremities: no edema Skin: other - erythema in sacral area Neurologic/Psychiatric: alert, oriented x 3, responsive Current Medications Medications (Trade) Dose Ordered Sig/Blank Route PRN Reason Start Time Stop Time Status Last Admin Dose Admin Acetaminophen (Tylenol) 650 mg Q6H PRN ORAL Mild Pain/Temp > 100.5 08/30/18 03:15 09/29/18 03:14 09/02/18 01:15 Atorvastatin Calcium (Lipitor) 10 mg BEDTIME ORAL 08/30/18 21:00 09/29/18 20:59 09/08/18 20:47 Hydralazine HCl (Apresoline) 25 mg Q6HR PRN ORAL For High Blood Pressure 08/31/18 05:30 09/30/18 05:29 09/03/18 22:06 Oxycodone/ Acetaminophen (Percocet 10/325) 1 tab Q4H PRN ORAL Severe Pain (Pain Scale 7-10) 09/05/18 12:00 09/12/18 11:59 Oxycodone/ Acetaminophen (Percocet 5-325) 1 tab Q4H PRN ORAL Moderate Pain (Pain Scale 4-6) 09/05/18 12:00 09/12/18 11:59 09/08/18 20:47 Quan Khan MD Sep 09, 2018 13:28
[2018-09-09 16:00] VITALS: BP 138/83
--- NOTE | 2018-09-09 16:19 | General Progress Note ---
Assessment/Plan Assessment/Plan Assessment/Plan Assessment/Plan Assessment/Plan #Acute lumbar compression fractures -continue supportive care -S/p L2, L3, L4 Kyphoplasty -Percocet prn -PT following -Dispo planning, pending authorization for SNF placement, spoke with case management today -Neurology following- recs appreciated #Fever and leukocytosis #Sepsis of unclear etiology, resolved -continue to monitor off antibiotics -ID following #Acute urinary retention, resolved #Suprapubic pain -Check UA, UCx via straight cath -Kaye remains out -monitor for retention #SARAH -resolved -check labs in AM -avoid nephrotoxic meds #PSVT #Hyperlipidemia #MVP -continue to monitor VTE PPx Heparin SCD Full Code. Subjective Date patient seen: Sep 09, 2018 Time patient seen: 16:17 ROS Limited/Unobtainable: No Constitutional: Reports: no symptoms HEENT: Reports: no symptoms Cardiovascular: Reports: no symptoms Respiratory: Reports: no symptoms Neurologic/Psychiatric: Reports: no symptoms Endocrine: Reports: no symptoms Hematologic/Lymphatic: Reports: no symptoms Allergies: Coded Allergies: STRAWBERRY (Verified Allergy, Unknown, Rash, 08/29/18) Subjective No acute overnight events. Complains of random sharp pain over suprapubic region , denies dysuria, fevers or change in urinary habits Objective Last 24 Hour Vital Signs Date Time Temp Pulse Resp B/P (MAP) Pulse Ox O2 Delivery O2 Flow Rate FiO2 09/09/18 16:00 97.0 98 17 138/83 (101) 98 09/09/18 12:00 98.5 100 20 156/78 (104) 95 09/09/18 09:00 Room Air 09/09/18 08:00 98.0 91 18 141/73 (95) 100 09/09/18 04:00 97.8 84 18 136/70 (92) 100 09/09/18 00:00 97.7 91 20 139/78 (98) 98 09/08/18 21:00 Room Air 09/08/18 20:00 98.7 97 18 128/70 (89) 98 Height (Feet): 5 Height (Inches): 4.00 Weight (Pounds): 98 Objective General: alert, cooperative, no distress, appears stated age Head: normocephalic, without obvious abnormality, atraumatic Eyes: conjunctivae/corneas clear. PERRL, EOM's intact Throat: lips, mucosa, and tongue normal. MMM Neck: supple, symmetrical, trachea midline, and no JVD Lungs: clear to auscultation bilaterally Heart: regular rate and rhythm, S1, S2 normal, no murmur, click, rub or gallop Abdomen: soft, non-tender, non-distended, bowel sounds normal; no masses or organomegaly Extremities: extremities normal, atraumatic, no cyanosis or edema Pulses: 2+ and symmetric Skin: skin color, texture, turgor normal; no rashes or lesions Neurologic: grossly normal, no focal deficits Lainey Huston MD Sep 09, 2018 16:18
[2018-09-09 18:55] LABS: APPEARANCE,URINE CLEAR; BILIRUBIN, URINE NEGATIVE (NEGATIVE); COLOR,URINE PALE YELLOW; GLUCOSE, URINE (UA) NEGATIVE (NEGATIVE); KETONES,URINE 3+ (NEGATIVE); LEUKOCYTE ESTERASE ,URINE 1+ (NEGATIVE); NITRITE,URINE NEGATIVE (NEGATIVE); PH,URINE 7 (4.5-8.0); PROTEIN,URINE 1+ (NEGATIVE); UROBILINOGEN,URINE NORMAL MG/DL (0.0-1.0)
[2018-09-09 20:15] VITALS: BP 143/65
[2018-09-09] MEDS ORDERED: Docusate Sod/Senna tab ORAL SCH (20:30)
[2018-09-09] MEDS: oxyCODONE HCL/Acetaminophen 5/325mg ORAL PRN (22:55)
--- NOTE | 2018-09-09 23:44 | Neurology Progress Note ---
Interim History Interim History ROS Limited/Unobtainable: No Complaints: Lower Back Pain Events: S/P IR Kyphoplasty and PT/OT Evals Interim History Continues to get OOB each day and walk. She is most concerned with getting in and out of bed at this time and how/ where she will complete rehab. She wants to go home but does not think in home rehab will be feasible. Objective Physical Exam Last Vital Signs Date Time Temp Pulse Resp B/P (MAP) Pulse Ox O2 Delivery O2 Flow Rate FiO2 09/09/18 20:15 97.9 95 17 143/65 (91) 96 09/09/18 09:00 Room Air 09/03/18 13:58 6.0 Laboratory Tests Test 09/09/18 18:20 Urine Color Pale yellow Urine Appearance Clear Urine pH 7 (4.5-8.0) Urine Specific [place] 1.010 (1.005-1.035) Urine Protein 1+ (NEGATIVE) H Urine Glucose (UA) Negative (NEGATIVE) Urine Ketones 3+ (NEGATIVE) H Urine Blood 4+ (NEGATIVE) H Urine Nitrite Negative (NEGATIVE) Urine Bilirubin Negative (NEGATIVE) Urine Urobilinogen Normal MG/DL (0.0-1.0) Urine Leukocyte Esterase 1+ (NEGATIVE) H Urine RBC 10-15 /HPF (0 - 2) H Urine WBC 5-10 /HPF (0 - 2) H Urine Squamous Epithelial Cells Few /LPF (NONE/OCC) Urine Bacteria Occasional /HPF (NONE) General: well developed, well nourished, no acute distress Head: normocophalic, atraumatic Neck: no rigidity EENT: benign Neurologic Exam Mental Status: awake, oriented x4, normal cognition, normal recent memory, normal remote memory, preserved visuospatial function Speech: normal speech, no dysarthia Language: normal language, no aphasia Cranial Nerve II: fundus normal, visual burns, no papilledema Cranial Nerves III, IV, : PERRLA, EOMI Cranial Nerve V: normal facial sensations Cranial Nerve VII: no facial asymmetry, normal facial expressions Cranial Nerve VIII: normal hearing, no nystagmus Cranial Nerve IX: normal palate elevation Cranial Nerve X: no voice hoarseness Cranial Nerve XI: SCM symmetric Cranial Nerve XII: tongue midline Motor System: no involuntary movement, no muscle wasting, other - Right leg now with no rigidity, 4-/5 now - LLE 4+/5, UEs bilaterally 5/5 Sensory: normal pinprick, normal light touch Coordination: normal finger to nose bilaterally Deep Tendon Reflexes: 2+ bicep (L), 2+ bicep (R), 2+ tricep (L), 2+ tricep (R) , 2+ brachioradialis (L), 2+ brachioradialis (R), 2+ knee (L), 2+ knee (R), 2+ ankle (L), 2+ ankle (R) Reflexes: flexor plantar (L), flexor plantar (R); extensor plantar (L), extensor plantar (R) Gait: other - OOB today- broad based slow gait at this time. Impression/Recommendations Problems: (1) Lumbar compression fracture Assessment & Plan: Improving strength in bilateral LEs with no neuropathy or paresthesia reported. Pain Management Neurovascular obs of LEs Q4hrs Continue work with PT/OT Discharge planning to SNF for subacute therapy at [facility] (2) Intractable back pain Assessment & Plan: Still reporting pain today but it is mostly under control now. Continue pain management- Consider PREMEDICATION prior to PT/OT \ Discussed pain management upon discharge with patient at length today. (3) Depression Assessment & Plan: Remains positive and willing to CONTINUE PT. Status: doing well, stable, progressing, tolerating diet Recommendations Continue Q4 Hr Neuro obs including neurovascular signs for LEs Manage pain with minimum possible narcotics S/P Kyphoplasty- Continue PT/OT as needed Plan for Subacute rehab when able, [facility] - [facility]. Valarie Douglass N.P. Sep 09, 2018 23:44
[2018-09-10] VITALS: BP 119/70
--- NOTE | 2018-09-10 00:17 | Neurology Progress Note ---
Interim History Interim History ROS Limited/Unobtainable: No Complaints: Lower Back Pain Events: S/P IR Kyphoplasty and PT/OT Evals Interim History Doing well ambulating, is concerned about pain management and ability to get in and out of bed still. Review of Systems All Systems: reviewed and negative except above Objective Physical Exam Last Vital Signs Date Time Temp Pulse Resp B/P (MAP) Pulse Ox O2 Delivery O2 Flow Rate FiO2 09/09/18 20:15 97.9 95 17 143/65 (91) 96 09/09/18 09:00 Room Air 09/03/18 13:58 6.0 Laboratory Tests Test 09/09/18 18:20 Urine Color Pale yellow Urine Appearance Clear Urine pH 7 (4.5-8.0) Urine Specific [place] 1.010 (1.005-1.035) Urine Protein 1+ (NEGATIVE) H Urine Glucose (UA) Negative (NEGATIVE) Urine Ketones 3+ (NEGATIVE) H Urine Blood 4+ (NEGATIVE) H Urine Nitrite Negative (NEGATIVE) Urine Bilirubin Negative (NEGATIVE) Urine Urobilinogen Normal MG/DL (0.0-1.0) Urine Leukocyte Esterase 1+ (NEGATIVE) H Urine RBC 10-15 /HPF (0 - 2) H Urine WBC 5-10 /HPF (0 - 2) H Urine Squamous Epithelial Cells Few /LPF (NONE/OCC) Urine Bacteria Occasional /HPF (NONE) General: well developed, well nourished, no acute distress Head: normocophalic, atraumatic Neck: no rigidity EENT: benign Neurologic Exam Mental Status: awake, oriented x4, normal cognition, normal recent memory, normal remote memory, preserved visuospatial function Speech: normal speech, no dysarthia Language: normal language, no aphasia Cranial Nerve II: fundus normal, visual burns, no papilledema Cranial Nerves III, IV, : PERRLA, EOMI Cranial Nerve V: normal facial sensations Cranial Nerve VII: no facial asymmetry, normal facial expressions Cranial Nerve VIII: normal hearing, no nystagmus Cranial Nerve IX: normal palate elevation Cranial Nerve X: no voice hoarseness Cranial Nerve XI: SCM symmetric Cranial Nerve XII: tongue midline Motor System: no involuntary movement, no muscle wasting, other - Right leg now with no rigidity, 4-/5 now - LLE 4+/5, UEs bilaterally 5/5 Sensory: normal pinprick, normal light touch Coordination: normal finger to nose bilaterally Deep Tendon Reflexes: 2+ bicep (L), 2+ bicep (R), 2+ tricep (L), 2+ tricep (R) , 2+ brachioradialis (L), 2+ brachioradialis (R), 2+ knee (L), 2+ knee (R), 2+ ankle (L), 2+ ankle (R) Reflexes: flexor plantar (L), flexor plantar (R); extensor plantar (L), extensor plantar (R) Gait: other - OOB today- broad based slow gait at this time. Impression/Recommendations Problems: (1) Lumbar compression fracture Assessment & Plan: S/P IR Kyphoplasty Monday09/02/18 - pain under control and progressing every day with PT Pain Management Neurovascular obs of LEs Q4hrs OOB [facility] PT/OT Evals for Rehab (2) Intractable back pain Assessment & Plan: Still reporting pain today but it is mostly under control now. Continue pain management- Consider PREMEDICATION prior to PT/OT (3) Depression Assessment & Plan: As per son, and as per RN, patient initially refusing pain management. "I'm DNR so I'm going to anyway" Patient awake and in good spirits today. Patient remains positive and ready to work with PT . Status: stable, progressing, tolerating diet, ambulating well Recommendations Discharge planning for [facility] Subacute Rehab - stable and ready for D /C Valarie Douglass N.P. Sep 10, 2018 00:17
[2018-09-10 04:09] VITALS: BP 125/73
[2018-09-10 08:00] VITALS: BP 122/70
[2018-09-10 12:00] VITALS: BP 132/69
--- NOTE | 2018-09-10 12:09 | Infectious Diseases Prog Note ---
Assessment/Plan Assessment/Plan A 1. fever resolved 2. r/o UTI 3. urinary retention 4. lumbar fracture s/p Kyphoplasty 5. mitral valve prolapse P 1. observe of antibiotic Subjective ROS Limited/Unobtainable: Yes Respiratory: Reports: no symptoms Genitourinary: Reports: no symptoms Musculoskeletal: Reports: no symptoms Allergies: Coded Allergies: STRAWBERRY (Verified Allergy, Unknown, Rash, 08/29/18) Objective Vital Signs Last 24 Hour Vital Signs Date Time Temp Pulse Resp B/P (MAP) Pulse Ox O2 Delivery O2 Flow Rate FiO2 09/10/18 09:00 Room Air 09/10/18 08:00 98.0 98 18 122/70 (87) 96 09/10/18 04:09 97.7 97 15 125/73 (90) 97 09/10/18 00:00 97.9 89 17 119/70 (86) 96 09/09/18 21:00 Room Air 09/09/18 20:15 97.9 95 17 143/65 (91) 96 09/09/18 16:00 97.0 98 17 138/83 (101) 98 Height (Feet): 5 Height (Inches): 4.00 Weight (Pounds): 98 General Appearance: no acute distress HEENT: mucous membranes moist Respiratory/Chest: lungs clear Cardiovascular: normal rate Abdomen: soft, non tender Extremities: no edema Neurologic/Psychiatric: alert, oriented x 3, responsive Laboratory Tests Test 09/09/18 18:20 Urine Color Pale yellow Urine Appearance Clear Urine pH 7 (4.5-8.0) Urine Specific [place] 1.010 (1.005-1.035) Urine Protein 1+ (NEGATIVE) H Urine Glucose (UA) Negative (NEGATIVE) Urine Ketones 3+ (NEGATIVE) H Urine Blood 4+ (NEGATIVE) H Urine Nitrite Negative (NEGATIVE) Urine Bilirubin Negative (NEGATIVE) Urine Urobilinogen Normal MG/DL (0.0-1.0) Urine Leukocyte Esterase 1+ (NEGATIVE) H Urine RBC 10-15 /HPF (0 - 2) H Urine WBC 5-10 /HPF (0 - 2) H Urine Squamous Epithelial Cells Few /LPF (NONE/OCC) Urine Bacteria Occasional /HPF (NONE) Current Medications Medications (Trade) Dose Ordered Sig/Blank Route PRN Reason Start Time Stop Time Status Last Admin Dose Admin Acetaminophen (Tylenol) 650 mg Q6H PRN ORAL Mild Pain/Temp > 100.5 08/30/18 03:15 09/29/18 03:14 09/02/18 01:15 Atorvastatin Calcium (Lipitor) 10 mg BEDTIME ORAL 08/30/18 21:00 09/29/18 20:59 09/09/18 22:55 Docusate Sodium (Colace) 100 mg TWICE A DAY ORAL 09/10/18 20:30 10/10/18 20:29 Hydralazine HCl (Apresoline) 25 mg Q6HR PRN ORAL For High Blood Pressure 08/31/18 05:30 09/30/18 05:29 09/03/18 22:06 Oxycodone/ Acetaminophen (Percocet 10/325) 1 tab Q4H PRN ORAL Severe Pain (Pain Scale 7-10) 09/05/18 12:00 09/12/18 11:59 Oxycodone/ Acetaminophen (Percocet 5-325) 1 tab Q4H PRN ORAL Moderate Pain (Pain Scale 4-6) 09/05/18 12:00 09/12/18 11:59 09/09/18 22:55 Quan Khan MD Sep 10, 2018 12:09
[2018-09-10] MEDS ORDERED: D5NS 1000ml IV ONE (13:49)
[2018-09-10] MEDS ORDERED: ACETAMINOPHEN325 M1 ORAL (13:54)
--- NOTE | 2018-09-10 13:59 | Discharge Summary ---
Discharge Summary Hospital Course Date of Admission Aug 29, 2018 at 20:05 Date of Discharge 09/10/18 Admitting Diagnosis intractable back pain HPI Dawna Diallo is a 88 year old female who was admitted on Aug 29, 2018 at 20: 05 for Intractable Back Pain Hospital Course Patient was admitted to the medical service with acute intractable back pain, noted to have multiple lumbar compression fractures. Treated symptomatically and seen by Neurology, underwent successful L2,L3,L4 kyphoplasty by IR. Ambulating with PT. She will be discharged to SNF in stable condition for ongoing physical therapy and rehab. #Acute lumbar compression fractures -continue supportive care -S/p L2, L3, L4 Kyphoplasty -Tylenol prn -PT following -Discharge to SNF today -Seen by Neurology #Fever and leukocytosis #Sepsis of unclear etiology, resolved -off antibiotics -seen by ID #Acute urinary retention, resolved -Kaye remains out -monitor for retention #SARAH -resolved -check labs in AM -avoid nephrotoxic meds #PSVT #Hyperlipidemia #MVP -continue to monitor Discharge Discharge Disposition Patient was discharged to SNF Discharge Diagnoses: (1) Lumbar compression fracture Rupert Harper MD Sep 10, 2018 13:59
[2018-09-10 15:29] VITALS: BP 159/69
[2018-09-10] MEDS: HydrALAZINE 25mg tab ORAL PRN (15:29)
[2018-09-10] MEDS ORDERED: Docusate 100mg cap ORAL SCH (20:30)
== END 2018-09-10 13:50 | DRG 854 ==
LOC: EDBD 17:03 → EMR 19:45 → 4E 20:05 → EDBEDREQ 20:29 → 4E 08-30 01:10
DX: A41.9 Sepsis, unspecified organism (principal); S32.020A Wedge compression fracture of second lumbar vertebra, initial encounter for closed fracture; N17.9 Acute kidney failure, unspecified; I47.1 Supraventricular tachycardia; S32.030A Wedge compression fracture of third lumbar vertebra, initial encounter for closed fracture; S32.040A Wedge compression fracture of fourth lumbar vertebra, initial encounter for closed fracture; X50.0XXA Overexertion from strenuous movement or load, initial encounter; Y92.009 Unspecified place in unspecified non-institutional (private) residence as the place of occurrence of the external cause; Z66 Do not resuscitate; E78.5 Hyperlipidemia, unspecified; I34.1 Nonrheumatic mitral (valve) prolapse; M19.90 Unspecified osteoarthritis, unspecified site; F32.9 Major depressive disorder, single episode, unspecified; R33.9 Retention of urine, unspecified; E86.0 Dehydration; Z85.3 Personal history of malignant neoplasm of breast; Z90.11 Acquired absence of right breast and nipple
CPT/HCPCS: 22514; 36415; 72131; 72148; 72192; 80048; 80053; 81003; 82550; 83690; 83735; 84100; 85025; 85610; 85730; 87040; 87086; 93005; 96374; 96376; 99285; J2250; J3490; J8499

== ENCOUNTER 2020-04-11 07:55 | Inpatient (IN) | payer BC ==
[~2020-04-11] VITALS: Ht 160 cm; Wt 45.4 kg
[~2020-04-11 07:55] MED LIST changes: +ACETAMINOPHEN325 M1 ORAL; +ADVIL200 MG ORAL; +MULTIVITAMINS1 EAC2 ORAL
[2020-04-11] MEDS ORDERED: fentaNYL 100 mcg/2 mL IV ONE (08:00)
--- NOTE | 2020-04-11 08:08 | Emergency Room Report ---
History of Present Illness General Chief Complaint: Lower Back Pain or Injury Source: Patient, Medical Record Present Illness HPI Patient is an 89-year-old female past medical history of depression and lumbar compression fracture who presents to the ER complaining of back pain. Patient was brought in from home by EMS. Patient states that 6 days ago she lifted something that she should not have and had acute onset of lower back pain. Patient denies any fever or chills. Patient denies any new focal weakness. Patient states that she has chronic left lower extremity weakness from an injury that required surgical repair. Patient states that she still able to walk somewhat with her walker. Patient states that she tried taking NSAIDs which upset her stomach and then took Tylenol with no relief. Patient denies abdominal pain, chest pain or shortness of breath. She states that she is able to urinate properly but has been unable to defecate due to the fact that pushing hurts her back so she try to hold her stool in. Allergies: Coded Allergies: STRAWBERRY (Verified Allergy, Unknown, Rash, 08/29/18) COVID-19 Screening Contact w/high risk pt: No Experienced COVID-19 symptoms?: No COVID-19 Testing performed TRAVELING INVENTORY ASSOCIATE: No Patient History Reviewed Nursing Documentation: PMH: Agreed; PSxH: Agreed Nursing Documentation-PMH Past Medical History: No History, Except For Hx Cardiac Problems: Yes - HEART MURMUR, HYPERLIPIDEMIA Review of Systems All Other Systems: negative except mentioned in HPI Physical Exam Vital Signs Date Time Temp Pulse Resp B/P (MAP) Pulse Ox O2 Delivery O2 Flow Rate FiO2 04/11/20 07:56 98.2 74 16 162/84 (110) 100 Room Air Sp02 EP Interpretation: reviewed, normal General Appearance: alert, GCS 15, non-toxic, mild distress Head: normocephalic, atraumatic Eyes: bilateral eye normal inspection, bilateral eye PERRL ENT: hearing grossly normal, normal pharynx, no angioedema, normal voice Neck: full range of motion, supple/symm/no masses Respiratory: chest non-tender, lungs clear, normal breath sounds, speaking full sentences Cardiovascular #1: regular rate, rhythm, no edema Gastrointestinal: normal bowel sounds, non tender, soft, non-distended, no guarding, no rebound Rectal: deferred, other - Able to squeeze but shakes, no saddle anesthesia Musculoskeletal: other - L4-L5 and diffuse lower back pain with no step-offs, also of lower thoracic tenderness palpation with no step-offs Neurologic: physical science professor III-XII nml as tested, sensory intact, other - Bilateral lower extremity weakness left greater than right patient states that is normal for her Psychiatric: no suicidal/homicidal ideation Skin: no rash Lymphatic: no adenopathy Medical Decision Making Diagnostic Impression: Primary Impression: Low back pain Additional Impressions: T12 compression fracture Leukocytosis ER Course Lucho Perrin did the patient's prior kyphoplasty. Patient CT demonstrates acute compression fracture of T12 with mild loss of height of the superior endplate. Associated mild retropulsion of the superior endplate which contributes to mild spinal canal stenosis. Also demonstrates status post kyphoplasty and underlying compression fractures. Patient given fentanyl 50 mcg IV for pain control. Patient states that it did not really help. I have ordered for 4 mg of IV morphine. Patient has been preop. Patient will be admitted for further treatment and evaluation. MRIs of the thoracic and lumbar spine have been ordered and are pending. Laboratory Tests Test 04/11/20 08:18 04/11/20 09:25 White Blood Count 11.4 K/UL (4.8-10.8) H Red Blood Count 4.77 M/UL (4.20-5.40) Hemoglobin 14.3 G/DL (12.0-16.0) Hematocrit 44.6 % (37.0-47.0) Mean Corpuscular Volume 94 FL (80-99) Mean Corpuscular Hemoglobin 30.0 PG (27.0-31.0) Mean Corpuscular Hemoglobin Concent 32.1 G/DL (32.0-36.0) Red Cell Distribution Width 12.8 % (11.6-14.8) Platelet Count 275 K/UL (150-450) Mean Platelet Volume 6.1 FL (6.5-10.1) L Neutrophils (%) (Auto) 81.2 % (45.0-75.0) H Lymphocytes (%) (Auto) 9.6 % (20.0-45.0) L Monocytes (%) (Auto) 7.7 % (1.0-10.0) Eosinophils (%) (Auto) 0.9 % (0.0-3.0) Basophils (%) (Auto) 0.6 % (0.0-2.0) Prothrombin Time 10.8 SEC (9.30-11.50) Prothrombin Time INR 1.0 (0.9-1.1) Activated Partial Thromboplast Time 25 SEC (23-33) Sodium Level 140 MMOL/L (136-145) Potassium Level 4.1 MMOL/L (3.5-5.1) Chloride Level 104 MMOL/L (98-107) Carbon Dioxide Level 29 MMOL/L (21-32) Anion Gap 7 mmol/L (5-15) Blood Urea Nitrogen 19 mg/dL (7-18) H Creatinine 0.8 MG/DL (0.55-1.30) Estimated Glomerular Filtration Rate > 60 mL/min (>60) Glucose Level 113 MG/DL (74-106) H Calcium Level 8.9 MG/DL (8.5-10.1) Magnesium Level 1.8 MG/DL (1.8-2.4) Total Bilirubin 0.6 MG/DL (0.2-1.0) Aspartate Amino Transferase (AST) 23 U/L (15-37) Alanine Aminotransferase (ALT) 22 U/L (12-78) Alkaline Phosphatase 74 U/L (46-116) Total Protein 7.5 G/DL (6.4-8.2) Albumin 3.6 G/DL (3.4-5.0) Globulin 3.9 g/dL Albumin/Globulin Ratio 0.9 (1.0-2.7) L Urine Color Pale yellow Urine Appearance Clear Urine pH 7 (4.5-8.0) Urine Specific [place] 1.010 (1.005-1.035) Urine Protein Negative (NEGATIVE) Urine Glucose (UA) Negative (NEGATIVE) Urine Ketones 2+ (NEGATIVE) H Urine Blood 1+ (NEGATIVE) H Urine Nitrite Negative (NEGATIVE) Urine Bilirubin Negative (NEGATIVE) Urine Urobilinogen Normal MG/DL (0.0-1.0) Urine Leukocyte Esterase Negative (NEGATIVE) Urine RBC 0-2 /HPF (0 - 2) Urine WBC 0 /HPF (0 - 2) Urine Squamous Epithelial Cells Occasional /LPF Urine Bacteria None /HPF (NONE) Last Vital Signs Date Time Temp Pulse Resp B/P (MAP) Pulse Ox O2 Delivery O2 Flow Rate FiO2 04/11/20 07:56 98.2 74 16 162/84 (110) 100 Room Air Disposition: ADMITTED INPATIENT Condition: Critical Physician Consult: Dr. Shekhar MD at 1015am Additional Instructions: Please note that this report is being documented using Command Information technology. This can lead to erroneous entry secondary to incorrect interpretation by the dictating instrument. Portia Bhakta M.D. Apr 11, 2020 08:08
[2020-04-11 08:23] VITALS: BP 162/84
--- NOTE | 2020-04-11 08:27 | NUR ---
came to er [facility] with complaints of lower back pain x 2 days after tryiny to lift a toilet ball .denies any other issues examined by md labs drawn iv infusing pain meds given
[2020-04-11 08:38] LABS: BASOPHILS % (AUTO) 0.6 % (0.0-2.0); EOSINOPHILS % (AUTO) 0.9 % (0.0-3.0); HEMATOCRIT 44.6 % (37.0-47.0); HEMOGLOBIN 14.3 G/DL (12.0-16.0); LYMPHOCYTES % (AUTO) 9.6 % (20.0-45.0); MEAN CORPUSCULAR VOLUME 94 FL (80-99); MONOCYTES % (AUTO) 7.7 % (1.0-10.0); NEUTROPHILS % (AUTO) 81.2 % (45.0-75.0); PLATELET COUNT 275 K/UL (150-450); RED BLOOD COUNT 4.77 M/UL (4.20-5.40); RED CELL DISTRIBUTION WIDTH 12.8 % (11.6-14.8); WHITE BLOOD COUNT 11.4 K/UL (4.8-10.8)
[2020-04-11 08:50] LABS: ANION GAP 7 mmol/L (5-15); BLOOD UREA NITROGEN 19 mg/dL (7-18); CALCIUM 8.9 MG/DL (8.5-10.1); CARBON DIOXIDE 29 MMOL/L (21-32); CHLORIDE 104 MMOL/L (98-107); CREATININE 0.8 MG/DL (0.55-1.30); POTASSIUM 4.1 MMOL/L (3.5-5.1); SODIUM 140 MMOL/L (136-145)
--- NOTE | 2020-04-11 08:50 | NUR ---
less pain4/[address] scan via [facility]
[2020-04-11 08:54] LABS: ALANINE AMINOTRANSFERASE 22 U/L (12-78); ALBUMIN 3.6 G/DL (3.4-5.0); ALBUMIN/GLOBULIN RATIO 0.9 (1.0-2.7); ALKALINE PHOSPHATASE 74 U/L (46-116); ASPARTATE AMINO TRANSFERASE 23 U/L (15-37); BILIRUBIN,TOTAL 0.6 MG/DL (0.2-1.0)
[2020-04-11] MEDS ORDERED: Morphine Sulfate 4mg/ml Inj (IV USE ONLY) IVP ONE (09:30)
--- NOTE | 2020-04-11 09:30 | NUR ---
back from ct complaints of back pain 11/05 dr gaines has been notified
--- NOTE | 2020-04-11 09:33 | Diagnostic Imaging Report ---
EXAM: CT Lumbar Spine Without Intravenous Contrast CLINICAL HISTORY: PAIN TECHNIQUE: Axial computed tomography images of the lumbar spine without intravenous contrast. CTDI is 6.3 mGy and DLP is 213 mGy-cm. One or more of the following dose reduction techniques were used: automated exposure control, adjustment of the mA and/or kV according to patient size, use of iterative reconstruction technique. COMPARISON: No relevant prior studies available. FINDINGS: Mild, acute compression fracture of T12 with mild loss of height of the superior endplate. Associated, mild retropulsion of the superior endplate, which contributes to mild spinal canal stenosis. Consider thoracic spine MRI correlation. Status post kyphoplasty with bone cement (PMMA) at L2, L3, and L4. Underlying compression fractures visualized. The L1 vertebral body height is maintained. There is mild loss of height of L5, which appears chronic. No definite fracture of L5. Multilevel endplate changes, disc space narrowing, and facet arthropathy. Severe multilevel facet arthropathy. Severe, diffuse osseous demineralization. 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 The included lung burns demonstrate emphysema and dependent atelectasis/scarring. Cardiomegaly. Atherosclerotic calcifications of the aorta without aneurysm. IMPRESSION: Mild, acute compression fracture of T12 with mild loss of height of the superior endplate. Associated, mild retropulsion of the superior endplate, which contributes to mild spinal canal stenosis. Consider thoracic spine MRI correlation. Status post kyphoplasty with bone cement (PMMA) at L2, L3, and L4. Underlying compression fractures visualized. The L1 vertebral body height is maintained. Mild loss of height of L5, which appears chronic. No definite fracture of L5. Severe, diffuse osseous demineralization, which somewhat limits evaluation for subtle nondisplaced fractures.
--- NOTE | 2020-04-11 09:55 | NUR ---
meds given as orderd for pain
[2020-04-11 10:21] LABS: APPEARANCE,URINE CLEAR; BILIRUBIN, URINE NEGATIVE (NEGATIVE); COLOR,URINE PALE YELLOW; GLUCOSE, URINE (UA) NEGATIVE (NEGATIVE); KETONES,URINE 2+ (NEGATIVE); LEUKOCYTE ESTERASE ,URINE NEGATIVE (NEGATIVE); NITRITE,URINE NEGATIVE (NEGATIVE); PH,URINE 7 (4.5-8.0); PROTEIN,URINE NEGATIVE (NEGATIVE); UROBILINOGEN,URINE NORMAL MG/DL (0.0-1.0)
--- NOTE | 2020-04-11 11:41 | NUR ---
report given to kevin patient is to be transferd to room 302-2 via [facility]
--- NOTE | 2020-04-11 11:45 | NUR ---
NURSE NOTES: Received report from CODIE Pimentel RN.
--- NOTE | 2020-04-11 11:56 | NUR ---
to mri via [facility]
[2020-04-11] MEDS ORDERED: Midazolam 2mg/2ml Inj IVP ONE (12:00)
[2020-04-11] MEDS ORDERED: LORazepam Inj 2mg/ml 1ml IV ONE (12:15)
--- NOTE | 2020-04-11 12:41 | NUR ---
ED Nurse Note: Pt in MRI
--- NOTE | 2020-04-11 14:00 | NUR ---
NURSE NOTES: Patient was admitted to room 302-2 via gurney from ER. Pt a/o x 4, in bed, c/o back pain as 11/05. Morphine was given at ER. Lt AC IV access is in placed. Unit orientation was given to pt. Discussed plan of care. Bed in lowest position, call light within reach. Will continue to monitor.
[2020-04-11 14:10] VITALS: BP 143/85
--- NOTE | 2020-04-11 14:41 | Diagnostic Imaging Report ---
MRI L SPINE Without Contrast HISTORY: Pain TECHNIQUE: Multiplanar and multiecho MRI images of the lumbar spine obtained without contrast. COMPARISON: CT lumbar spine April 11, 2020 FINDINGS: Compression deformity of L4, L3 and L2 with kyphoplasty cement in place. There is an acute appearing compression fracture of T12 with posterior superior retropulsion of the vertebral body causing canal narrowing. Conus medullaris ends at the level of L2. Disc desiccation demonstrated. Facet hypertrophic changes are present. Conus medullaris is unremarkable. L1-2 demonstrates no significant disc bulge causing canal stenosis with mild osteophytosis with facet hypertrophy with mild bilateral neuroforaminal narrowing. L2-3 demonstrates no significant disc bulge causing canal stenosis with compression deformity of the superior endplate of L3 with mild osteophytosis with mild canal narrowing. Facet hypertrophy and mild bilateral neural foraminal narrowing. L3-4 demonstrates mild concentric disc bulge with mild canal narrowing with facet hypertrophy with a moderate left and right neural foraminal narrowing. L4-5 demonstrates concentric disc bulge and mild canal narrowing with facet hypertrophy with moderate right and left neural foraminal narrowing. L5-S1 demonstrates no significant disc bulge causing canal stenosis with facet hypertrophy and mild bilateral neural foraminal narrowing. Tarlov cyst formation seen within the sacrum. IMPRESSION: Compression fracture of T12 with mild posterior superior retropulsion of the vertebral body with mild canal narrowing. Chronic appearing compression deformities of L2 and L3 and L4 with kyphoplasty cement in place.
--- NOTE | 2020-04-11 14:50 | Diagnostic Imaging Report ---
MRI T SPINE Without Contrast HISTORY: Pain Technique: Multiplanar multiecho MR images of the thoracic spine obtained without contrast. Comparison: CT April 11, 2020 Findings: Normal alignment demonstrated. Diffuse desiccation noted. There is a superior endplate compression fracture of T12 with mild posterior superior retropulsion of vertebral body with less than 50% height loss. Thoracic cord signal is within normal limits. No other compression deformity seen. Facet alignment appears maintained. Neural foramen appear patent. Bilateral lower lobe dependent opacities demonstrated. Impression: Superior endplate compression fracture of T12 with posterior superior retropulsion of the vertebral body causing mild canal narrowing without significant neural foraminal narrowing. Normal cord signal. Normal alignment seen. Dependent atelectasis versus infiltrates at the lung bases noted.
[2020-04-11 16:00] VITALS: BP 151/91
[2020-04-11] MEDS: Heparin 5000 units/ml inj SUBQ SCH (16:17)
--- NOTE | 2020-04-11 18:46 | NUR ---
NURSE HAND-OFF: Admission from ER Important Events on Shift: Admission from ER Patient Status: stable Diet: regular Pending Orders: - Pending Results/Labs:- Pending MD notification:- Latest Vital Signs: Temperature 97.4 , Pulse 106 , B/P 151 /91 , Respiratory Rate 16 , O2 SAT 95 , Room Air, O2 Flow Rate . Vital Sign Comment: stable Latest Chase Fall Score: 40 Fall Risk: Medium Risk Safety Measures: Call light Within Reach, Bed Alarm Zone 1, Side Rails Side Rails x2, Bed position Low and Locked. Fall Precautions: Report given to ISMAEL Cox.
--- NOTE | 2020-04-11 19:30 | NUR ---
NURSE NOTES: Pt is alert and oriented x4 on room air. Pt complains of slight pain but tolerable at this time. pt is sitting up in bed. Morphine was last given in ED at 0950. Lt AC IV patent, saline locked. Discussed plan of care. Bed in lowest position, locked, side rails x2, call light within reach. Pt said she is slightly wet, purewicke in place, but not draining at present. Wll clean pt as she is on bedrest. Will continue to monitor.
[2020-04-11 20:00] VITALS: BP 140/82
--- NOTE | 2020-04-11 20:00 | NUR ---
NURSE NOTES: Will initiate wound care protocol for pressure sores that are developing.
--- NOTE | 2020-04-11 20:00 | NUR ---
NURSE NOTES: Pt has concerning area stage 2 to left buttocksand possible dti to coccyx, redness to bilateral heels
[2020-04-11] MEDS ORDERED: Heparin 5000 units/ml inj SUBQ SCH (21:00)
[2020-04-11] MEDS: HYDROcodone/Acetamin 10/325 tab ORAL PRN (21:26)
--- NOTE | 2020-04-11 21:27 | NUR ---
NURSE NOTES: Pulled medication Manti for pt complaining of pain 5-6/10. Brought pain medication scanned it to administer and pt said pain level increased to 7/10, needs IV medication. Returned Manti to nikko unopened, cosigned by second RN. Will pull morphine to administer to pt promptly for i Increasing pain level. Additionally will call Dr Corrigan for zofran IV to prevent nausea as pt is concerned she will become nauseous.
[2020-04-11] MEDS: Morphine Sulfate 2mg/ml Inj(IV/IM USE ONLY) IVP PRN (21:36)
[2020-04-11 23:42] VITALS: BP 135/77
[2020-04-12 04:00] VITALS: BP 148/87
[2020-04-12] MEDS: Morphine Sulfate 2mg/ml Inj(IV/IM USE ONLY) IVP PRN (05:56)
--- NOTE | 2020-04-12 07:33 | NUR ---
NURSE HAND-OFF: Important Events on Shift: Patient Status: [still having lower back pain, received morphine 1 mg, significant pain upon movement and pressure sore developing left upper buttocks, bilat heel redness, wound care plan initiated and nutrition consult placed, also pt is constipated, and has pain when trying to poop, so is afraid, ordinarily she goes every day per pt.] Contacted re constipation, no orders received endorsed to am shift Diet: regular soft easy chew Pending Orders: Pending Results/Labs: Pending MD notification: Latest Vital Signs: Temperature 98.1 , Pulse 106 , B/P 148 /87 , Respiratory Rate 18 , O2 SAT 98 , Room Air, O2 Flow Rate . Vital Sign Comment: Latest Chase Fall Score: 40 Fall Risk: Medium Risk Safety Measures: Call light Within Reach, Bed Alarm Zone 1, Side Rails Side Rails x2, Bed position Low and Locked. Fall Precautions: Yellow Socks Yellow Gown Door Sign Patient Fall Education Report given to ISMAEL Becker
--- NOTE | 2020-04-12 07:41 | NUR ---
NURSE NOTES: Received report from Cassie GUEVARA, rounds made pt awake a/o X 4, breaths regular unlabored on RA, pt sleeping in supine position, no s/s of distress, pt has Lt AC 20 Locked , pt denies any pain at this time , call light with in each , side rails up X2, bed in low locked position, will continue with plan of care
[2020-04-12 08:00] VITALS: BP 160/85
[2020-04-12] MEDS ORDERED: Milk of Magnesia 30ml Ud ORAL PRN (08:15)
[2020-04-12] MEDS ORDERED: Miralax 17gm pkt ORAL PRN (08:15)
[2020-04-12] MEDS: Docusate 250mg cap ORAL SCH ×2 (08:51→17:46)
[2020-04-12] MEDS: Heparin 5000 units/ml inj SUBQ SCH (08:53)
--- NOTE | 2020-04-12 10:57 | NUR ---
RD ASSESSMENT & RECOMMENDATIONS SEE CARE ACTIVITY FOR COMPLETE ASSESSMENT DAILY ESTIMATED NEEDS: Needs based on DTI, 45kg 30-35 kcals/kg 2112-0958 total kcals 1.25-1.5 g protein/kg 56-68 g total protein 25-30ml/kcal mL/kg 2359-1699 total fluid mLs NUTRITION DIAGNOSIS: Increased kcal and protein needs r/t skin breakdown as evidenced by pt w/ compression fracture, limited mobility, now w/ buttock. sacral DTI. CURRENT DIET: Regular soft PO DIET RECOMMENDATIONS: SOFT DIET/ TEXTURE TOLERATED ADDITIONAL RECOMMENDATIONS: 1) Maintain a calibrated bed scale wt 2) Add Ensure Enlive BID (vanilla or chocolate only) Prune Juice w/ all meals 3) Monitor lytes daily, replete as needed 4) Add SIM BID to maintain skin integrity 5) Bowel regimen
[2020-04-12 11:48] VITALS: BP 145/85
--- NOTE | 2020-04-12 14:38 | NUR ---
CASE MANAGEMENT:INITIAL REVIEW 89 YR OLD FEMALE BIBA FROM HOME CC;LOWER BACK PAIN OR INJURY SI;LUMBAR FRACTURE OF T12. LEUKOCYTOSIS. 98.9 106 18 162/84 95% ON RA WBC 11.4 BUN 19 UA+ KETONES, BLOOD SPINE CT ~ Mild, acute compression fracture of T12 with mild loss of height of the superior endplate. Associated, mild retropulsion of the superior endplate, which contributes to mild spinal canal stenosis. Consider thoracic spine MRI correlation. LUMBAR SPINE MRI ~ Compression fracture of T12 with mild posterior superior retropulsion of the vertebral body with mild canal narrowing. Chronic appearing compression deformities of L2 and L3 and L4 with kyphoplasty cement in place. THORACIC SPINE MRI ~ Superior endplate compression fracture of T12 with posterior superior retropulsion of the vertebral body causing mild canal narrowing without significant neural foraminal narrowing. Normal cord signal. Normal alignment seen. IS;IVF NS BOLUS FENTANYL IV MORPHINE IV ZOFRAN IV VERSED IV ATIVAN IV ADMITTED TO MED SURG MED SURG STATUS DCP;FROM HOME
[2020-04-12 16:00] VITALS: BP 151/95
--- NOTE | 2020-04-12 19:08 | NUR ---
NURSE NOTES: Spoke to regarding Heparin and D/C heparin and New SCD order received. Order read back and carried out.
--- NOTE | 2020-04-12 19:17 | NUR ---
NURSE HAND-OFF: Important Events on Shift: pain management, Patient Status: stable Diet: Reg, soft easy chew Pending Orders: Pending Results/Labs: Pending MD notification: Latest Vital Signs: Temperature 98.0 , Pulse 109 , B/P 151 /95 , Respiratory Rate 18 , O2 SAT 96 , Room Air, O2 Flow Rate . Vital Sign Comment: Latest Chase Fall Score: 40 Fall Risk: Medium Risk Safety Measures: Call light Within Reach, Bed Alarm Zone 1, Side Rails Side Rails x2, Bed position Low and Locked. Fall Precautions: Yellow Socks Yellow Gown Door Sign Patient Fall Education Report given to Haim GUEVARA .
--- NOTE | 2020-04-12 19:20 | NUR ---
NURSE NOTES: received report and pt from ISMAEL Becker. pt alert and oriented x 4 with no acute distress and no co pain at the moment while at rest. iv site hep locked and clean dry and intact. plan of care discussed.
[2020-04-12 20:00] VITALS: BP 153/96
--- NOTE | 2020-04-12 21:45 | NUR ---
NURSE NOTES: pts last bowel movement was on 04/05/20. pt given Colace earlier today and she said that she is usually able to go after taking that pill. I offered pt other options for PRN constipation medication but she refused to take any of them at the moment. pt was educated on importance of having normal bowel movements and the effects of immobility on the bowel movement and the need for medication. She is still refusing at this time. I will reinforce and follow up.
[2020-04-13] VITALS (8 sets, daily range): BP systolic 136–173; BP diastolic 70–96
--- NOTE | 2020-04-13 03:32 | NUR ---
NURSE NOTES: pt stable, vital signs stable, she is in no acute distress and not complaining of pain at the moment. along with charge nurse had pt move to one side so that left butt cheek could be assessed. slight discoloration noted (bluish purple), possible dti, wound consult already made. sacral site encompassing area of discolaration had calazime applied to it and optifoam dressing. dressing still intact. patients bilateral heels show redness, optifoam also applied and heels raised off the mattress for the majority of the shift.
--- NOTE | 2020-04-13 06:18 | NUR ---
NURSE NOTES: pt still refusing medication for constipation. she said she would try the prune juice given during breakfast and see how it goes before using PRN medications for the constipation. pt told me to ask day shift nurse to offer medication for constipation. pt tolerated being turned in bed today. will endorse to day shift nurse.
--- NOTE | 2020-04-13 07:22 | NUR ---
NURSE HAND-OFF: Important Events on Shift:pt refuses to take constipation medication, turn q 2 hours Patient Status: stable Diet: regular Pending Orders: NA Pending Results/Labs:NA Pending MD notification:NA Latest Vital Signs: Temperature 97.7 , Pulse 99 , B/P 159 /86 , Respiratory Rate 16 , O2 SAT 95 , Room Air, O2 Flow Rate . Vital Sign Comment: stable through shift, pt runs hypertensive Latest Chase Fall Score: 40 Fall Risk: Medium Risk Safety Measures: Call light Within Reach, Bed Alarm Zone 1, Side Rails Side Rails x2, Bed position Low and Locked. Fall Precautions: Yellow Socks Yellow Gown Door Sign Patient Fall Education Report given to ISMAEL Becker.
--- NOTE | 2020-04-13 07:23 | NUR ---
NURSE NOTES: Received report from Haim RN, rounds made pt awake a/o X 4, breaths regular unlabored on RA, pt laying in supine position, no s/s of distress, pt has Lt AC 20 Locked , c/o pain 09/05 but states she will let me know when when she needs the pain medication , call light with in reach , side rails up X2, bed in low locked position, will continue with plan of care
[2020-04-13] MEDS: Docusate 250mg cap ORAL SCH ×2 (08:37→17:26)
--- NOTE | 2020-04-13 09:00 | History and Physical Report ---
DATE OF ADMISSION: 04/11/2020 CHIEF COMPLAINT: Back pain. HISTORY OF PRESENT ILLNESS: The patient is a pleasant 89-year-old female. She has a prior history of lumbar compression fracture, status post kyphoplasty in August of last year. She has a history of a heart murmur. She presented with complaints of intractable back pain after she was lifting the cover for her toilet trying to fix it. She had immediate pain which was uncontrollable. She presented to the emergency room. An MRI there showed a T12 compression fracture. Because of intractable pain, she is now admitted for further evaluation and care. PAST MEDICAL HISTORY: As above. PAST SURGICAL HISTORY: Includes left leg surgery and mastectomy. CURRENT MEDICATIONS: Reconciled and reviewed. ALLERGIES: None. FAMILY HISTORY: Significant for rheumatoid arthritis and breast cancer. SOCIAL HISTORY: Negative for tobacco, ethanol, or drugs. REVIEW OF SYSTEMS: GENERAL: No fevers or chills. HEENT: No headaches or visual changes. CARDIOPULMONARY: No chest pain or shortness of breath. GASTROINTESTINAL: No nausea or vomiting. GENITOURINARY: No urgency or frequency. MUSCULOSKELETAL: No joint pain or swelling. NEUROLOGICAL: No evidence of seizures. PHYSICAL EXAMINATION: VITAL SIGNS: Temperature 98, pulse 71, respirations 17, blood pressure 132/69. GENERAL: The patient is well developed, in no apparent distress. Alert and oriented x4. HEENT: Head is normocephalic and atraumatic. Sclerae anicteric. Oropharynx clear. NECK: Supple. HEART: Regular rate and rhythm. LUNGS: Clear. ABDOMEN: Soft, nontender, and nondistended. EXTREMITIES: Without clubbing, cyanosis, or edema. LABORATORY DATA: White count was 11, hemoglobin 14, platelets of . Sodium 140. INR was normal. UA was clear. ASSESSMENT: This is an 89-year-old female with a history of prior compression fracture, status post kyphoplasty, admitted with intractable back pain secondary to a new T12 compression fracture. PLAN: 1. Spine consultation. 2. IV and oral pain medications as needed. 3. Consider repeat kyphoplasty. We will discuss with spine cycle consultant. Nelson Corrigan M.D. DR: ERLINDA JOB#: [id number] CC:
--- NOTE | 2020-04-13 09:10 | General Progress Note ---
Subjective ROS Limited/Unobtainable: No Constitutional: Reports: malaise, weakness HEENT: Reports: no symptoms Cardiovascular: Reports: no symptoms Respiratory: Reports: no symptoms Gastrointestinal/Abdominal: Reports: no symptoms Genitourinary: Reports: no symptoms Neurologic/Psychiatric: Reports: no symptoms Endocrine: Reports: no symptoms Hematologic/Lymphatic: Reports: no symptoms Allergies: Coded Allergies: STRAWBERRY (Verified Allergy, Unknown, Rash, 08/29/18) All Systems: reviewed and negative except above Subjective no events. w/o complaints except intractable back pain. no weakness or numbness. Objective Last 24 Hour Vital Signs Date Time Temp Pulse Resp B/P (MAP) Pulse Ox O2 Delivery O2 Flow Rate FiO2 04/13/20 03:32 97.7 99 16 159/86 (110) 95 04/13/20 00:00 98.1 103 18 156/88 (110) 97 04/12/20 21:00 Room Air 04/12/20 20:00 98.2 105 17 153/96 (115) 97 04/12/20 16:00 98.0 109 18 151/95 (113) 96 04/12/20 11:48 98.4 107 18 145/85 (105) 98 Intake and Output 04/12/20 04/13/20 19:00 07:00 Intake Total 600 ml 150 ml Output Total 200 ml Balance 600 ml -50 ml Intake Oral 600 ml 150 ml Output Urine Total 200 ml # Voids 3 Height (Feet): 5 Height (Inches): 4.00 Weight (Pounds): 120 General Appearance: WD/WN, alert EENT: PERRL/EOMI, normal ENT inspection Neck: non-tender, normal alignment Cardiovascular: normal peripheral pulses, normal rate, regular rhythm Respiratory/Chest: chest wall non-tender, lungs clear, normal breath sounds Abdomen: normal bowel sounds, non tender, soft, no organomegaly Edema: no edema noted Arm (L), no edema noted Arm (R) Neurologic: executive vice president II-XII grossly normal, alert, oriented x 3 Skin: normal pigmentation Assessment/Plan Problem List: (1) T12 compression fracture ICD Codes: S22.080A - Wedge compression fracture of T11-T12 vertebra, initial encounter for closed fracture SNOMED: 242163441 Status: stable, progressing Assessment/Plan: kyphoplasty pain rx dvt/stress ulcer prophylaxis bp rx bowel regime. Nelson Corrigan MD Apr 13, 2020 09:10
[2020-04-13] MEDS: Atenolol 25mg tab ORAL SCH (10:30)
--- NOTE | 2020-04-13 13:00 | NUR ---
PREASSEMBLER AND INSPECTOR NOTE CALL RECEIVED FROM ELIO IN SURGERY TO INFORM THAT PATIENT SCHEDULED FOR KYPHOPLASTY 04/14/20 @ 1660
--- NOTE | 2020-04-13 13:30 | NUR ---
CASE MANAGEMENT:REVIEW SI;LUMBAR FRACTURE OF T12. LEUKOCYTOSIS. T 99.0 P 116 R 18 BP 173/96 O2 95% ON RA NO LABS AVAILABLE IS;HYDRALAZINE PO ATENOLOL PO QD TYLENOL PO PEPCID PO QD MED SURG STATUS DCP;FROM HOME PLAN; SCHEDULED FOR KYPHOPLASTY 04/14/20
--- NOTE | 2020-04-13 19:28 | NUR ---
NURSE HAND-OFF: Important Events on Shift: NPO at midnight Patient Status: stable Diet: Reg soft Pending Orders: Pending Results/Labs: Pending MD notification: Latest Vital Signs: Temperature 98.0 , Pulse 93 , B/P 145 /90 , Respiratory Rate 18 , O2 SAT 97 , Room Air, O2 Flow Rate . Vital Sign Comment: Latest Chase Fall Score: 40 Fall Risk: Medium Risk Safety Measures: Call light Within Reach, Bed Alarm Zone 1, Side Rails Side Rails x2, Bed position Low and Locked. Fall Precautions: Yellow Socks Yellow Gown Door Sign Patient Fall Education Report given to [place] GUEVARA.
--- NOTE | 2020-04-13 19:58 | NUR ---
NURSE NOTES: Received report from ISMAEL Becker. Patient seen in bed in semi bennett's position. Patient is NPO on midnight, d/t probable surgery tomorrow. Otherwise patient denies any pain as of the moment. Will monitor BP and pain throughout the night
[2020-04-13] MEDS: HydrALAZINE 25mg tab ORAL PRN (20:41)
[2020-04-13] MEDS: HYDROcodone/Acetamin 10/325 tab ORAL PRN (20:42)
[2020-04-13] MEDS: D5NS 1,000 ML IV SCH (23:13)
[2020-04-14 06:01] VITALS: BP 165/87
[2020-04-14] MEDS: HydrALAZINE 25mg tab ORAL PRN (06:06)
[2020-04-14] MEDS: HYDROcodone/Acetamin 10/325 tab ORAL PRN ×2 (06:15→15:30)
--- NOTE | 2020-04-14 06:33 | NUR ---
NURSE HAND-OFF: Important Events on Shift: BP management and pain management throughout the shift, Hydralazine given x2 and [place] x2. BP still elevated . Surgery unsure today d/t insurance approval per Dr Corrigan. Patient is NPO midnight Patient Status: Stable Diet: NPO midnight (04/14/20 for possible surgery ) Pending Orders: [] Pending Results/Labs:[] Pending MD notification:[] Latest Vital Signs: Temperature 98.0 , Pulse 90 , B/P 165 /87 , Respiratory Rate 18 , O2 SAT 99 , Room Air, O2 Flow Rate . Vital Sign Comment: [] Latest Chase Fall Score: 40 Fall Risk: Medium Risk Safety Measures: Call light Within Reach, Bed Alarm Zone 1, Side Rails Side Rails x2, Bed position Low and Locked. Fall Precautions: Yellow Socks Yellow Gown Door Sign Patient Fall Education
--- NOTE | 2020-04-14 07:30 | NUR ---
NURSE NOTES: Patient is in bed awake and able to verbalize needs. Stable. Denies pain at this time and stated that she had pain medication already. Breathing is even and unlabored. Patient instructed to use call light for assistance, verbalized understanding. All safety measures provided. Patient refused to be repositioned. Patient is in bed in locked and lowest position with call light within reach. Will continue to monitor.
--- NOTE | 2020-04-14 07:33 | NUR ---
NURSE NOTES: Report given to Deb GUEVARA
[2020-04-14 08:00] VITALS: BP 165/84
[2020-04-14] MEDS: Docusate 250mg cap ORAL SCH ×2 (09:00→17:51)
[2020-04-14] MEDS: Atenolol 25mg tab ORAL SCH (09:01)
--- NOTE | 2020-04-14 09:43 | General Progress Note ---
Subjective ROS Limited/Unobtainable: No Constitutional: Reports: no symptoms HEENT: Reports: no symptoms Cardiovascular: Reports: no symptoms Respiratory: Reports: no symptoms Gastrointestinal/Abdominal: Reports: no symptoms Genitourinary: Reports: no symptoms Neurologic/Psychiatric: Reports: no symptoms Endocrine: Reports: no symptoms Hematologic/Lymphatic: Reports: no symptoms Allergies: Coded Allergies: STRAWBERRY (Verified Allergy, Unknown, Rash, 08/29/18) All Systems: reviewed and negative except above Subjective no events. w/o complaints except intractable back pain. still requiring iv pain meds. no weakness or numbness. trying to get insurance auth for kyphoplasty. BP up Objective Last 24 Hour Vital Signs Date Time Temp Pulse Resp B/P (MAP) Pulse Ox O2 Delivery O2 Flow Rate FiO2 04/14/20 09:01 92 165/84 04/14/20 08:00 97.8 92 18 165/84 (111) 95 04/14/20 06:45 98.0 04/14/20 06:06 165/87 04/14/20 06:01 98.0 90 18 165/87 (113) 99 04/13/20 23:43 98.1 87 18 136/70 (92) 99 04/13/20 21:12 97.9 04/13/20 21:00 Room Air 04/13/20 20:41 169/85 04/13/20 20:00 97.9 87 18 169/85 (113) 96 04/13/20 16:00 98.0 93 18 145/90 (108) 97 04/13/20 12:00 99.0 82 18 155/94 (114) 97 04/13/20 10:30 116 173/96 Intake and Output 04/13/20 04/14/20 19:00 07:00 Intake Total 600 ml 480 ml Balance 600 ml 480 ml Intake Oral 600 ml 480 ml # Voids 3 3 # Bowel Movements 2 Height (Feet): 5 Height (Inches): 4.00 Weight (Pounds): 120 Objective General Appearance: WD/WN, alert EENT: PERRL/EOMI, normal ENT inspection Neck: non-tender, normal alignment Cardiovascular: normal peripheral pulses, normal rate, regular rhythm Respiratory/Chest: chest wall non-tender, lungs clear, normal breath sounds Abdomen: normal bowel sounds, non tender, soft, no organomegaly Edema: no edema noted Arm (L), no edema noted Arm (R) 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 trying to get insurance auth pain rx dvt/stress ulcer prophylaxis bp rx bowel regime. added norvas for bp echo reviewed Nelson Corrigan MD Apr 14, 2020 09:43
[2020-04-14 12:00] VITALS: BP 138/76
[2020-04-14] MEDS: Morphine Sulfate 2mg/ml Inj(IV/IM USE ONLY) IVP PRN (12:07)
--- NOTE | 2020-04-14 12:54 | NUR ---
NURSE NOTES: SKIN/WOUND ASSESSMENT PATIENT AWAKE AND ALERT. REQUESTING SHE REPOSITION HERSELF DUE TO BACK PAIN. NO ASSISTANCE NEEDED. SKIN INTACT. NO BREAKDOWN NOTED. RECOMMEND: CONTINUED WOUND PREVENTION PROTOCOLS REMIND PATIENT TO REPOSITION SELF AND ASSIST ALLOWED. ELEVATE HEELS WITH PILLOWS
--- NOTE | 2020-04-14 13:00 | NUR ---
NURSE NOTES: RN and wound care nurses performed skin assessment. Skin is c/d/i, optifoam placed on bony prominences for prophylaxis. Patient has difficult time repositioning even after being medicated. Patient is stable. All safety measures provided. Will continue to monitor.
[2020-04-14 16:00] VITALS: BP 123/63
--- NOTE | 2020-04-14 16:13 | NUR ---
NURSE NOTES: Patient's son Scott at bedside. Patient and son requested to change code status to DNR. Dr. Corrigan paged regarding patient's request. New orders to change code to DNR read back and entered. Patient and son made aware of code status change.
--- NOTE | 2020-04-14 17:43 | NUR ---
CASE MANAGEMENT: REVIEW SI: T12 COMPRESSION FRACTURE KYPHOPLASTY -- PENDING T 99.1 HR 68 RR 18 BP 165/84 SAT 95% ROOM AIR IS: D54NS IVF @ 60ML/HR NORVASC 10/325MG PO Q 4HR PRN MORPHINE Q4HR PRN MED/SURG STATUS DCP: PATIENT IS FROM HOME
[2020-04-14] MEDS: D5NS 1,000 ML IV SCH (17:52)
--- NOTE | 2020-04-14 18:10 | NUR ---
INSURANCE CLINIICALS/REVIEW FAXED TO [facility] (04/11-04/14) FX [phone] PH [phone]
--- NOTE | 2020-04-14 19:47 | NUR ---
NURSE HAND-OFF: Important Events on Shift:pain management, wound consult Patient Status: stable Diet: regular Pending Orders: n/a Pending Results/Labs:n/a Pending MD notification:n/a Latest Vital Signs: Temperature 99.1 , Pulse 71 , B/P 123 /63 , Respiratory Rate 18 , O2 SAT 95 , Room Air, O2 Flow Rate . Vital Sign Comment: n/a Latest Chase Fall Score: 40 Fall Risk: Medium Risk Safety Measures: Call light Within Reach, Bed Alarm Zone 1, Side Rails Side Rails x2, Bed position Low and Locked. Fall Precautions: Yellow Socks Yellow Gown Door Sign Patient Fall Education Report given to Nika GUEVARA. Addendum: 04/14/20 at 1950 by GEORGES SILVERMAN RN error, report given to [place] GUEVARA
--- NOTE | 2020-04-14 19:54 | NUR ---
NURSE NOTES: Received report from Deb GUEVARA. Patient in bed and no apparent distress. Reports a tolerable pain as of the moment.
[2020-04-14 20:00] VITALS: BP 127/63
[2020-04-15] VITALS: BP 148/75
[2020-04-15] MEDS: HYDROcodone/Acetamin 10/325 tab ORAL PRN ×2 (01:14→21:01)
--- NOTE | 2020-04-15 01:53 | Cardiology Progress Note ---
Subjective DATE OF SERVICE: Apr 13, 2020 Still with back pain. No SOB. BP trend elevated. Objective Last 24 Hour Vital Signs 169/85 87 18 afebrile HEENT: normal ENT inspection LUNGS: diminished breath sounds CARDIAC: normal rate, regular rhythm, normal S1 and S2, systolic murmur - 1/6 systolic murmur base ABDOMEN: normal bowel sounds, non tender, soft EXTREMITIES: no calf tenderness, No edema Microbiology Date/Time Source Procedure Growth Status 04/14/20 06:50 Nasopharynx SARS-CoV-2 RdRp Gene Assay - Final Complete Assessment/Plan Assessment/Plan T12 compession fracture Prior lumbar compression fx (2019) Hypertension Osteoporosis Degenerative valve disease Hyperlipidemia Pain control Titrate antiHTN meds Ca++/Vit D suppl Kyphoplasty planned DVT prophylaxis Continue statin therapy Maintain beta blockade Elvin Carreno MD Apr 15, 2020 01:53
--- NOTE | 2020-04-15 02:00 | Cardiology Progress Note ---
Subjective DATE OF SERVICE: Apr 14, 2020 Still with back pain. No SOB. BP trend improved. Awaiting insurance auth for kyphoplasty Objective Last 24 Hour Vital Signs Date Time Temp Pulse Resp B/P (MAP) Pulse Ox O2 Delivery O2 Flow Rate FiO2 04/15/20 01:44 98.7 04/15/20 00:00 98.7 75 18 148/75 (99) 97 04/14/20 21:00 Room Air 04/14/20 20:00 98.7 71 16 127/63 (84) 96 04/14/20 16:00 99.1 71 18 123/63 (83) 95 04/14/20 12:00 99.0 68 18 138/76 (96) 96 04/14/20 09:52 66 150/78 04/14/20 09:01 92 165/84 04/14/20 09:00 Room Air 04/14/20 08:00 97.8 92 18 165/84 (111) 95 04/14/20 06:45 98.0 04/14/20 06:06 165/87 04/14/20 06:01 98.0 90 18 165/87 (113) 99 ROS: unchanged from my initial evaluation HEENT: normal ENT inspection LUNGS: diminished breath sounds CARDIAC: normal rate, regular rhythm, normal S1 and S2, systolic murmur - 1/6 systolic murmur base ABDOMEN: normal bowel sounds, non tender, soft EXTREMITIES: no calf tenderness, No edema Microbiology Date/Time Source Procedure Growth Status 04/14/20 06:50 Nasopharynx SARS-CoV-2 RdRp Gene Assay - Final Complete Assessment/Plan Assessment/Plan T12 compession fracture Prior lumbar compression fx (2019) Hypertension Osteoporosis Degenerative valve disease Hyperlipidemia Pain control Titrate antiHTN meds - continue beta betty Ca++/Vit D suppl Kyphoplasty planned DVT prophylaxis Check lipid panel Elvin Carreno MD Apr 15, 2020 02:00
[2020-04-15 04:00] VITALS: BP 146/69
--- NOTE | 2020-04-15 06:29 | NUR ---
NURSE HAND-OFF: Important Events on Shift:[place] x1, voiding ok Patient Status: stable Diet: NPO Midnight for possible procedure today Pending Orders: [] Pending Results/Labs:[] Pending MD notification:[] Latest Vital Signs: Temperature 98.0 , Pulse 75 , B/P 146 /69 , Respiratory Rate 18 , O2 SAT 97 , Room Air, O2 Flow Rate . Vital Sign Comment: [] Latest Chase Fall Score: 40 Fall Risk: Medium Risk Safety Measures: Call light Within Reach, Bed Alarm Zone 1, Side Rails Side Rails x2, Bed position Low and Locked. Fall Precautions: Yellow Socks Yellow Gown Door Sign Patient Fall Education
--- NOTE | 2020-04-15 07:23 | General Progress Note ---
Subjective ROS Limited/Unobtainable: No Constitutional: Reports: malaise, weakness HEENT: Reports: no symptoms Cardiovascular: Reports: no symptoms Respiratory: Reports: no symptoms Gastrointestinal/Abdominal: Reports: no symptoms Genitourinary: Reports: no symptoms Neurologic/Psychiatric: Reports: no symptoms Endocrine: Reports: no symptoms Hematologic/Lymphatic: Reports: no symptoms Allergies: Coded Allergies: STRAWBERRY (Verified Allergy, Unknown, Rash, 08/29/18) All Systems: reviewed and negative except above Subjective no events. w/o complaints except intractable back pain. still requiring iv pain meds. no weakness or numbness. [facility]asty Objective Last 24 Hour Vital Signs Date Time Temp Pulse Resp B/P (MAP) Pulse Ox O2 Delivery O2 Flow Rate FiO2 04/15/20 04:00 98.0 75 18 146/69 (94) 97 04/15/20 01:44 98.7 04/15/20 00:00 98.7 75 18 148/75 (99) 97 04/14/20 21:00 Room Air 04/14/20 20:00 98.7 71 16 127/63 (84) 96 04/14/20 16:00 99.1 71 18 123/63 (83) 95 04/14/20 12:00 99.0 68 18 138/76 (96) 96 04/14/20 09:52 66 150/78 04/14/20 09:01 92 165/84 04/14/20 09:00 Room Air 04/14/20 08:00 97.8 92 18 165/84 (111) 95 Intake and Output 04/14/20 04/15/20 19:00 07:00 Intake Total 480 ml Output Total 200 ml Balance 280 ml Intake Oral 480 ml Output Urine Total 200 ml # Voids 1 3 Height (Feet): 5 Height (Inches): 4.00 Weight (Pounds): 120 Objective General Appearance: WD/WN, alert EENT: PERRL/EOMI, normal ENT inspection Neck: non-tender, normal alignment Cardiovascular: normal peripheral pulses, normal rate, regular rhythm Respiratory/Chest: chest wall non-tender, lungs clear, normal breath sounds Abdomen: normal bowel sounds, non tender, soft, no organomegaly Edema: no edema noted Arm (L), no edema noted Arm (R) 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 trying to get insurance auth pain rx dvt/stress ulcer prophylaxis bp rx bowel regime. echo reviewed Nelson Corrigan MD Apr 15, 2020 07:23
--- NOTE | 2020-04-15 07:41 | NUR ---
NURSE NOTES: Report given to Shirley Andrew RN. Rounds done
--- NOTE | 2020-04-15 07:48 | NUR ---
NURSE NOTES: Received report from ISMAEL Conrad. Pt awake in bed, alert and oriented. In RA, breathing even and unlabored. Denies pain at this time. IV sited intact and patent running IVF as ordered. Pt on NPO for procedure. Pt aware. Educated pt to use call light for assistance. Bed in low position and locked. Call light within reach.Will continue to monitor.
[2020-04-15 08:00] VITALS: BP 159/79
[2020-04-15 08:37] LABS: ALANINE AMINOTRANSFERASE 23 U/L (12-78); ALBUMIN 2.4 G/DL (3.4-5.0); ALBUMIN/GLOBULIN RATIO 0.8 (1.0-2.7); ALKALINE PHOSPHATASE 55 U/L (46-116); ANION GAP 7 mmol/L (5-15); ASPARTATE AMINO TRANSFERASE 28 U/L (15-37); BILIRUBIN,TOTAL 0.3 MG/DL (0.2-1.0); BLOOD UREA NITROGEN 11 mg/dL (7-18); CALCIUM 7.1 MG/DL (8.5-10.1); CARBON DIOXIDE 27 MMOL/L (21-32); CHLORIDE 110 MMOL/L (98-107); CHOLESTEROL 114 MG/DL (< 200); CREATININE 0.8 MG/DL (0.55-1.30); HDL CHOLESTEROL 44 MG/DL (40-60); POTASSIUM 2.8 MMOL/L (3.5-5.1); SODIUM 143 MMOL/L (136-145); TRIGLYCERIDES 88 MG/DL (30-150)
--- NOTE | 2020-04-15 09:00 | NUR ---
NURSE NOTES: lad result Glucose 500. per Dr. Corrigan it was error.
[2020-04-15] MEDS: Docusate 250mg cap ORAL SCH ×2 (09:01→18:28)
[2020-04-15] MEDS: Atenolol 25mg tab ORAL SCH (09:01)
[2020-04-15] MEDS: Calcium Carbonate 500mg w/Vit D 200iu tab ORAL SCH ×3 (09:01→18:23)
[2020-04-15] MEDS: D5NS 1,000 ML IV SCH (09:20)
[2020-04-15 12:00] VITALS: BP 147/68
[2020-04-15 16:00] VITALS: BP 156/69
--- NOTE | 2020-04-15 16:20 | NUR ---
P.T Note: late entry [id number] P.T evaluation on hold . Pt NPO for possible procedure today. Awaiting for MD clearance to start mobilization.
--- NOTE | 2020-04-15 17:12 | NUR ---
INSURANCE CLINIICALS/REVIEW FAXED TO [facility] [phone]
--- NOTE | 2020-04-15 19:09 | NUR ---
NURSE HAND-OFF: Important Events on Shift:[Still waiting for Auth by insurance. Pending Kyphoplasty, resume regular diet.] Patient Status: [stable] Diet: [reg] Pending Orders: [] Pending Results/Labs:[] Pending MD notification:[] Latest Vital Signs: Temperature 97.9 , Pulse 78 , B/P 156 /69 , Respiratory Rate 18 , O2 SAT 96 , Room Air, O2 Flow Rate . Vital Sign Comment: [stable] Latest Chase Fall Score: 40 Fall Risk: Medium Risk Safety Measures: Call light Within Reach, Bed Alarm Zone 1, Side Rails Side Rails x2, Bed position Low and Locked. Fall Precautions: Yellow Socks Yellow Gown Door Sign Patient Fall Education Report given to [ISMAEL Conrad].
[2020-04-15 20:00] VITALS: BP 127/76
--- NOTE | 2020-04-15 20:16 | NUR ---
NURSE NOTES: Received report from Shirley Andrew RN . Patient in stable condition, still complains of back pain. Will follow up with ,morning RN to follow up case management in regards insurance verification
[2020-04-16] VITALS: BP 153/72
[2020-04-16] MEDS: D5NS 1,000 ML IV SCH (00:17)
--- NOTE | 2020-04-16 01:54 | Cardiology Progress Note ---
Subjective DATE OF SERVICE: Apr 15, 2020 Still with back pain. No SOB. BP trend remains stable. 2D Echo: normal LVEF, no significant valve abnormalities, no pulmonary hypertension. Kyphoplasty now planned. Objective Last 24 Hour Vital Signs Date Time Temp Pulse Resp B/P (MAP) Pulse Ox O2 Delivery O2 Flow Rate FiO2 04/16/20 00:00 97.8 73 20 153/72 (99) 96 04/15/20 21:31 97.9 04/15/20 21:00 Room Air 04/15/20 20:00 97.5 83 20 127/76 (93) 97 04/15/20 16:00 97.9 78 18 156/69 (98) 96 04/15/20 12:00 98.0 67 18 147/68 (94) 95 04/15/20 09:30 98.0 04/15/20 09:01 78 159/79 04/15/20 09:01 78 159/79 04/15/20 09:00 Room Air 04/15/20 08:00 98.0 78 18 159/79 (105) 95 04/15/20 04:00 98.0 75 18 146/69 (94) 97 ROS: unchanged from my initial evaluation HEENT: normal ENT inspection LUNGS: diminished breath sounds CARDIAC: normal rate, regular rhythm, normal S1 and S2, systolic murmur - 1/6 systolic murmur base ABDOMEN: normal bowel sounds, non tender, soft EXTREMITIES: no calf tenderness, No edema Laboratory Tests Test 04/15/20 05:45 Sodium Level 143 MMOL/L (136-145) Potassium Level 2.8 MMOL/L (3.5-5.1) L Chloride Level 110 MMOL/L (98-107) H Carbon Dioxide Level 27 MMOL/L (21-32) Anion Gap 7 mmol/L (5-15) Blood Urea Nitrogen 11 mg/dL (7-18) Creatinine 0.8 MG/DL (0.55-1.30) Estimat Glomerular Filtration Rate > 60 mL/min (>60) Glucose Level 500 MG/DL (74-106) H Calcium Level 7.1 MG/DL (8.5-10.1) L Total Bilirubin 0.3 MG/DL (0.2-1.0) Aspartate Amino Transf (AST/SGOT) 28 U/L (15-37) Alanine Aminotransferase (ALT/SGPT) 23 U/L (12-78) Alkaline Phosphatase 55 U/L (46-116) Total Protein 5.6 G/DL (6.4-8.2) L Albumin 2.4 G/DL (3.4-5.0) L Globulin 3.2 g/dL Albumin/Globulin Ratio 0.8 (1.0-2.7) L Triglycerides Level 88 MG/DL (30-150) Cholesterol Level 114 MG/DL (< 200) LDL Cholesterol 53 mg/dL (<100) HDL Cholesterol 44 MG/DL (40-60) Cholesterol/HDL Ratio 2.6 (3.3-4.4) L Vitamin D 25-Hydroxy Pending 25-Hydroxy Vitamin D2 Pending 25-Hydroxy Vitamin D3 Pending Thyroid Stimulating Hormone (TSH) 1.615 uiU/mL (0.358-3.740) Microbiology Date/Time Source Procedure Growth Status 04/14/20 06:50 Nasopharynx SARS-CoV-2 RdRp Gene Assay - Final Complete Assessment/Plan Assessment/Plan T12 compession fracture Prior lumbar compression fx (2018) Hypertension Osteoporosis Degenerative valve disease Hyperlipidemia Pain control Titrate antiHTN meds as needed; avoid orthostasis potential. Ca++/Vit D suppl Kyphoplasty planned DVT prophylaxis Continue statin therapy Maintain beta blockade Elvin Carreno MD Apr 16, 2020 01:54
[2020-04-16 04:00] VITALS: BP 165/88
[2020-04-16] MEDS: HydrALAZINE 25mg tab ORAL PRN (04:04)
--- NOTE | 2020-04-16 06:34 | NUR ---
NURSE HAND-OFF: Important Events on Shift: pt voided via bedpan last night, pain well managed with norco. Gave hydralazine x1 this morning d/t high BP. Otherwise patient asymptomatic. Encouraged patient to turn as tolerated Patient Status: stable Diet: reg soft easy chew Pending Orders: [] Pending Results/Labs:[] Pending MD notification:[] Latest Vital Signs: Temperature 98.1 , Pulse 74 , B/P 165 /88 , Respiratory Rate 20 , O2 SAT 100 , Room Air, O2 Flow Rate . Vital Sign Comment: [] Latest Chase Fall Score: 40 Fall Risk: Medium Risk Safety Measures: Call light Within Reach, Bed Alarm Zone 1, Side Rails Side Rails x2, Bed position Low and Locked. Fall Precautions: Yellow Socks Yellow Gown Door Sign Patient Fall Education Report given to Shirley Andrew RN
[2020-04-16 06:42] LABS: EOSINOPHILS % (AUTO) 2.1 % (0.0-3.0); HEMATOCRIT 41.2 % (37.0-47.0); HEMOGLOBIN 12.8 G/DL (12.0-16.0); LYMPHOCYTES % (AUTO) 20.2 % (20.0-45.0); MEAN CORPUSCULAR VOLUME 96 FL (80-99); MONOCYTES % (AUTO) 12.6 % (1.0-10.0); PLATELET COUNT 281 K/UL (150-450); RED CELL DISTRIBUTION WIDTH 12.9 % (11.6-14.8); WHITE BLOOD COUNT 6.4 K/UL (4.8-10.8)
[2020-04-16 07:04] LABS: ANION GAP 8 mmol/L (5-15); BLOOD UREA NITROGEN 9 mg/dL (7-18); CALCIUM 7.6 MG/DL (8.5-10.1); CARBON DIOXIDE 27 MMOL/L (21-32); CHLORIDE 109 MMOL/L (98-107); CREATININE 0.7 MG/DL (0.55-1.30); POTASSIUM 3.2 MMOL/L (3.5-5.1); SODIUM 143 MMOL/L (136-145)
--- NOTE | 2020-04-16 07:31 | NUR ---
NURSE NOTES: Report given to Shirley Andrew RN. Rounds done
[2020-04-16 08:00] VITALS: BP 164/91
[2020-04-16] MEDS: Calcium Carbonate 500mg w/Vit D 200iu tab ORAL SCH ×3 (09:19→18:19)
[2020-04-16] MEDS: Docusate 250mg cap ORAL SCH ×2 (09:19→18:19)
[2020-04-16] MEDS: Atenolol 25mg tab ORAL SCH (09:20)
[2020-04-16] MEDS: HYDROcodone/Acetamin 10/325 tab ORAL PRN ×2 (09:38→21:39)
--- NOTE | 2020-04-16 10:05 | NUR ---
NURSE NOTES: Received report from ISMAEL Conrad. Pt awake in bed, alert and oriented. In RA, breathing even and unlabored. pt c/o back pain 11/05. Will administer Prn pain med as ordered. IV sited intact and patent running IVF as ordered. Educated pt to use call light for assistance. Bed in low position and locked. Call light within reach.Will continue to monitor. Addendum: 04/16/20 at 1008 by Peggy Andrew RN Time of this note @[id number]
[2020-04-16 11:10] LABS: BASOPHILS % (AUTO) 0.7 % (0.0-2.0); EOSINOPHILS % (AUTO) 1.5 % (0.0-3.0); HEMATOCRIT 44.9 % (37.0-47.0); HEMOGLOBIN 14.3 G/DL (12.0-16.0); LYMPHOCYTES % (AUTO) 15.8 % (20.0-45.0); MEAN CORPUSCULAR VOLUME 91 FL (80-99); MONOCYTES % (AUTO) 8.1 % (1.0-10.0); NEUTROPHILS % (AUTO) 73.9 % (45.0-75.0); PLATELET COUNT 365 K/UL (150-450); RED BLOOD COUNT 4.96 M/UL (4.20-5.40); RED CELL DISTRIBUTION WIDTH 12.8 % (11.6-14.8); WHITE BLOOD COUNT 9.3 K/UL (4.8-10.8)
[2020-04-16 11:42] LABS: ALBUMIN/GLOBULIN RATIO 0.7 (1.0-2.7); BILIRUBIN,TOTAL 0.3 MG/DL (0.2-1.0); CALCIUM 8.8 MG/DL (8.5-10.1); CREATININE 0.9 MG/DL (0.55-1.30); POTASSIUM 3.9 MMOL/L (3.5-5.1)
--- NOTE | 2020-04-16 11:42 | NUR ---
P.T Note: Pt cleared by Dr. Corrigan for P.T to mobilize pt OOB as tolerated. P.T proceeded with evaluation with son present in room. Pt as was awake, alert , o x 4 and agreeable to participate in P.T. Pt presented generalized weakness and severe pain in the mid/lower back aggravated by movement initiation ( pt was premedicated prior to P.T evaluation ). Pt require extended amount of time and verbal/manual cues to facilitate ease of mobility and to come up from supine to/from sitting using logroll tech and to transition from sitting to/from standing transitions using the FWW. Pt was able to ambulate and tolerate 3-4 steps using the FWW with MOD A X 1. Pt c/o dizziness upon initial sitting and standing 10/10 scale however subsided to 3/10 towards the end of P.T eval/tx. Will continue P.T. with progression of activities as tolerated. Recommend SNF for short term rehab of home with CG/or family assisting and home P.T upon DC from this facility. Thank you for this referral.
[2020-04-16 12:00] VITALS: BP 144/94
--- NOTE | 2020-04-16 15:02 | General Progress Note ---
Subjective ROS Limited/Unobtainable: No Constitutional: Reports: malaise, weakness HEENT: Reports: no symptoms Cardiovascular: Reports: no symptoms Respiratory: Reports: no symptoms Gastrointestinal/Abdominal: Reports: no symptoms Genitourinary: Reports: no symptoms Neurologic/Psychiatric: Reports: no symptoms Endocrine: Reports: no symptoms Hematologic/Lymphatic: Reports: no symptoms Allergies: Coded Allergies: STRAWBERRY (Verified Allergy, Unknown, Rash, 08/29/18) All Systems: reviewed and negative except above Subjective no events. w/o complaints except intractable back pain. still requiring iv pain meds. no weakness or numbness. insurance has not authorized kyphoplasty Objective Last 24 Hour Vital Signs Date Time Temp Pulse Resp B/P (MAP) Pulse Ox O2 Delivery O2 Flow Rate FiO2 04/16/20 12:00 98.5 73 20 144/94 (111) 95 04/16/20 10:08 98.1 04/16/20 09:20 89 164/91 04/16/20 09:20 94 164/91 04/16/20 09:00 Room Air 04/16/20 08:00 99.0 94 20 164/91 (115) 95 04/16/20 04:04 165/88 04/16/20 04:00 98.1 74 20 165/88 (113) 100 04/16/20 00:00 97.8 73 20 153/72 (99) 96 04/15/20 21:31 97.9 04/15/20 21:00 Room Air 04/15/20 20:00 97.5 83 20 127/76 (93) 97 04/15/20 16:00 97.9 78 18 156/69 (98) 96 Intake and Output 04/15/20 04/16/20 19:00 07:00 Intake Total 1020 ml Balance 1020 ml Intake Oral 480 ml IV Total 540 ml # Voids 4 Laboratory Tests 04/16/20 04:50: White Blood Count 6.4, Red Blood Count 4.30, Hemoglobin 12.8, Hematocrit 41.2, Mean Corpuscular Volume 96, Mean Corpuscular Hemoglobin 29.8, Mean Corpuscular Hemoglobin Concent 31.2L, Red Cell Distribution Width 12.9, Platelet Count 281, Mean Platelet Volume 5.5L, Neutrophils (%) (Auto) 64.0, Lymphocytes (%) (Auto) 20.2, Monocytes (%) (Auto) 12.6H, Eosinophils (%) (Auto) 2.1, Basophils (%) (Auto) 1.0, Sodium Level 143, Potassium Level 3.2L, Chloride Level 109H, Carbon Dioxide Level 27, Anion Gap 8, Blood Urea Nitrogen 9, Creatinine 0.7, Estimat Glomerular Filtration Rate > 60, Glucose Level 443H, Calcium Level 7.6L, Magnesium Level 1.7L 04/16/20 09:44: POC Whole Blood Glucose [Pending] 04/16/20 11:00: White Blood Count 9.3, Red Blood Count 4.96, Hemoglobin 14.3, Hematocrit 44.9, Mean Corpuscular Volume 91, Mean Corpuscular Hemoglobin 28.8, Mean Corpuscular Hemoglobin Concent 31.8L, Red Cell Distribution Width 12.8, Platelet Count 365, Mean Platelet Volume 5.5L, Neutrophils (%) (Auto) 73.9, Lymphocytes (%) (Auto) 15.8L, Monocytes (%) (Auto) 8.1, Eosinophils (%) (Auto) 1.5, Basophils (%) (Auto) 0.7, Sodium Level 134L, Potassium Level 3.9, Chloride Level 104, Carbon Dioxide Level 27, Anion Gap 3L, Blood Urea Nitrogen 10, Creatinine 0.9, Estimat Glomerular Filtration Rate 59.1, Glucose Level 110#H, Calcium Level 8.8, Hemoglobin A1c 5.9, Total Bilirubin 0.3, Aspartate Amino Transf (AST/SGOT) 41H, Alanine Aminotransferase (ALT/SGPT) 40, Alkaline Phosphatase 76, Total Protein 7.2, Albumin 3.0L, Globulin 4.2, Albumin/Globulin Ratio 0.7L Height (Feet): 5 Height (Inches): 4.00 Weight (Pounds): 120 Objective General Appearance: WD/WN, alert EENT: PERRL/EOMI, normal ENT inspection Neck: non-tender, normal alignment Cardiovascular: normal peripheral pulses, normal rate, regular rhythm Respiratory/Chest: chest wall non-tender, lungs clear, normal breath sounds Abdomen: normal bowel sounds, non tender, soft, no organomegaly Edema: no edema noted Arm (L), no edema noted Arm (R) 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 trying to get insurance auth pain rx dvt/stress ulcer prophylaxis bp rx bowel regime. echo reviewed Nelson Corrigan MD Apr 16, 2020 15:02
[2020-04-16 16:00] VITALS: BP 140/80
--- NOTE | 2020-04-16 16:23 | NUR ---
INSURANCE CLINIICALS FAXED TO [facility] [phone]
--- NOTE | 2020-04-16 19:30 | NUR ---
NURSE NOTES: Received report from ISMAEL Dong. No distress noted, patient doing well. Assisted with flat bedpan, patient can move but very slowly. Encouraged to call as needed for pain medication. Doesn't want any at this time. BEd in low position, locked, side rails up x2, call light within reach. Will cotninue to monitor.
--- NOTE | 2020-04-16 19:51 | NUR ---
NURSE HAND-OFF: Important Events on Shift:[Glucose lab error, Physical therapy, pain management,] Patient Status: [stable] Diet: [reg] Pending Orders: [] Pending Results/Labs:[] Pending MD notification:[] Latest Vital Signs: Temperature 98.5 , Pulse 89 , B/P 140 /80 , Respiratory Rate 20 , O2 SAT 96 , Room Air, O2 Flow Rate . Vital Sign Comment: [stable] Latest Chase Fall Score: 40 Fall Risk: Medium Risk Safety Measures: Call light Within Reach, Bed Alarm Zone 1, Side Rails Side Rails x2, Bed position Low and Locked. Fall Precautions: Yellow Socks Yellow Gown Door Sign Patient Fall Education Report given to [ISMAEL Barney].
[2020-04-16 20:00] VITALS: BP 159/79
[2020-04-17] VITALS (7 sets, daily range): BP systolic 119–165; BP diastolic 56–80
--- NOTE | 2020-04-17 00:40 | Cardiology Progress Note ---
Subjective DATE OF SERVICE: Apr 16, 2020 Still with back pain. No SOB. BP trend remains stable. 2D Echo: normal LVEF, no significant valve abnormalities, no pulmonary hypertension. Kyphoplasty pending authorization. Objective Last 24 Hour Vital Signs Date Time Temp Pulse Resp B/P (MAP) Pulse Ox O2 Delivery O2 Flow Rate FiO2 04/16/20 16:00 98.5 89 20 140/80 (100) 96 04/16/20 12:00 98.5 73 20 144/94 (111) 95 04/16/20 10:08 98.1 04/16/20 09:20 89 164/91 04/16/20 09:20 94 164/91 04/16/20 09:00 Room Air 04/16/20 08:00 99.0 94 20 164/91 (115) 95 04/16/20 04:04 165/88 04/16/20 04:00 98.1 74 20 165/88 (113) 100 ROS: unchanged from my initial evaluation HEENT: normal ENT inspection LUNGS: diminished breath sounds CARDIAC: normal rate, regular rhythm, normal S1 and S2, systolic murmur - 1/6 systolic murmur base ABDOMEN: normal bowel sounds, non tender, soft EXTREMITIES: no calf tenderness, No edema Laboratory Tests Test 04/16/20 04:50 04/16/20 09:44 04/16/20 11:00 White Blood Count 6.4 K/UL (4.8-10.8) 9.3 K/UL (4.8-10.8) Red Blood Count 4.30 M/UL (4.20-5.40) 4.96 M/UL (4.20-5.40) Hemoglobin 12.8 G/DL (12.0-16.0) 14.3 G/DL (12.0-16.0) Hematocrit 41.2 % (37.0-47.0) 44.9 % (37.0-47.0) Mean Corpuscular Volume 96 FL (80-99) 91 FL (80-99) Mean Corpuscular Hemoglobin 29.8 PG (27.0-31.0) 28.8 PG (27.0-31.0) Mean Corpuscular Hemoglobin Concent 31.2 G/DL (32.0-36.0) L 31.8 G/DL (32.0-36.0) L Red Cell Distribution Width 12.9 % (11.6-14.8) 12.8 % (11.6-14.8) Platelet Count 281 K/UL (150-450) 365 K/UL (150-450) Mean Platelet Volume 5.5 FL (6.5-10.1) L 5.5 FL (6.5-10.1) L Neutrophils (%) (Auto) 64.0 % (45.0-75.0) 73.9 % (45.0-75.0) Lymphocytes (%) (Auto) 20.2 % (20.0-45.0) 15.8 % (20.0-45.0) L Monocytes (%) (Auto) 12.6 % (1.0-10.0) H 8.1 % (1.0-10.0) Eosinophils (%) (Auto) 2.1 % (0.0-3.0) 1.5 % (0.0-3.0) Basophils (%) (Auto) 1.0 % (0.0-2.0) 0.7 % (0.0-2.0) Sodium Level 143 MMOL/L (136-145) 134 MMOL/L (136-145) L Potassium Level 3.2 MMOL/L (3.5-5.1) L 3.9 MMOL/L (3.5-5.1) Chloride Level 109 MMOL/L (98-107) H 104 MMOL/L (98-107) Carbon Dioxide Level 27 MMOL/L (21-32) 27 MMOL/L (21-32) Anion Gap 8 mmol/L (5-15) 3 mmol/L (5-15) L Blood Urea Nitrogen 9 mg/dL (7-18) 10 mg/dL (7-18) Creatinine 0.7 MG/DL (0.55-1.30) 0.9 MG/DL (0.55-1.30) Estimat Glomerular Filtration Rate > 60 mL/min (>60) 59.1 mL/min (>60) Glucose Level 443 MG/DL (74-106) H 110 MG/DL (74-106) #H Calcium Level 7.6 MG/DL (8.5-10.1) L 8.8 MG/DL (8.5-10.1) Magnesium Level 1.7 MG/DL (1.8-2.4) L POC Whole Blood Glucose Pending Hemoglobin A1c 5.9 % (4.3-6.0) Total Bilirubin 0.3 MG/DL (0.2-1.0) Aspartate Amino Transf (AST/SGOT) 41 U/L (15-37) H Alanine Aminotransferase (ALT/SGPT) 40 U/L (12-78) Alkaline Phosphatase 76 U/L (46-116) Total Protein 7.2 G/DL (6.4-8.2) Albumin 3.0 G/DL (3.4-5.0) L Globulin 4.2 g/dL Albumin/Globulin Ratio 0.7 (1.0-2.7) L Microbiology Date/Time Source Procedure Growth Status 04/14/20 06:50 Nasopharynx SARS-CoV-2 RdRp Gene Assay - Final Complete Assessment/Plan Assessment/Plan T12 compession fracture Prior lumbar compression fx (2018) Hypertension Osteoporosis Degenerative valve disease Hyperlipidemia Pain control Titrate antiHTN meds as needed; avoid orthostasis potential. Ca++/Vit D suppl Kyphoplasty planned pending auth; at present, insurance company is directly impeding patient care plan for pain control. DVT prophylaxis Continue statin therapy Maintain beta blockade Elvin Carreno MD Apr 17, 2020 00:40
[2020-04-17] MEDS: HYDROcodone/Acetamin 10/325 tab ORAL PRN ×3 (05:22→22:35)
--- NOTE | 2020-04-17 07:10 | NUR ---
NURSE NOTES: Report given to ISMAEL Becker. Rounds done.
--- NOTE | 2020-04-17 08:34 | NUR ---
RD ASSESSMENT & RECOMMENDATIONS SEE CARE ACTIVITY FOR COMPLETE ASSESSMENT DAILY ESTIMATED NEEDS: Needs based on DTI, 45kg 30-35 kcals/kg 7147-6093 total kcals 1.25-1.5 g protein/kg 56-68 g total protein 25-30ml/kcal mL/kg 6079-4682 total fluid mLs NUTRITION DIAGNOSIS: Increased kcal and protein needs r/t skin breakdown as evidenced by pt w/ compression fracture, limited mobility, now w/ buttock. sacral DTI. CURRENT DIET: Regular soft PO DIET RECOMMENDATIONS: SOFT DIET/ TEXTURE TOLERATED ADDITIONAL RECOMMENDATIONS: 1) Maintain a calibrated bed scale wt 2) Added Ensure Enlive BID (vanilla or chocolate only) Prune Juice w/ all meals 3) Monitor lytes daily, replete as needed 4) Added SMI BID to maintain skin integrity Continue MVI x 1
[2020-04-17] MEDS ORDERED: NS 275ml ONE (09:32)
[2020-04-17] MEDS ORDERED: Tubing IV Secondary IV ONE (09:32)
--- NOTE | 2020-04-17 09:57 | CDS Physician Query ---
Clarification is required for compliance, coding accuracy, and to reflect severity of illness for this patient Dear Dr. Nelson Corrigan Date: 04/17/2020 Maths Tutor/CDS Name: Kacie London Clinical Documentation states: 89-year-old female with a history of prior compression fracture, status post kyphoplasty, admitted with intractable back pain secondary to a new T12 compression fracture RD note: Increased kcal and protein needs r/t skin breakdown as evidenced by pt w/ compression fracture, limited mobility, now w/ buttock. sacral DTI. BMI 17.2 Albumin 2.4 Please select the most appropriate option: [] Protein/Calorie Malnutrition [] Mild [] Moderate [x] Severe [] Hypoalbuminemia [] Cachexia [] Underweight [] Intestinal malabsorption [] Other [] Unable to determine [] Not Applicable Present on Admission: [x] Yes [] No [] Clinically Undetermined Physician signature Date Please also document in your Progress Notes and/or Discharge Summary and indicate if the condition was present on admission. MTDD
[2020-04-17] MEDS: Docusate 250mg cap ORAL SCH ×2 (09:58→17:49)
[2020-04-17] MEDS: Calcium Carbonate 500mg w/Vit D 200iu tab ORAL SCH ×3 (09:58→17:49)
[2020-04-17] MEDS: Atenolol 25mg tab ORAL SCH (10:05)
--- NOTE | 2020-04-17 12:23 | NUR ---
COMMUNITY OUTREACH MANAGER NOTES SPOKE WITH LEON FROM [facility].MADE AWARE OF PT REQUIRING KYPHOPLASTY AUTHORIZATION [id number] GIVEN FOR PROCEDURE. MESSAGE LEFT WITH DR. LAYNE. WILL FOLLOW UP. DR. SANDOVAL ALSO MADE AWARE.
--- NOTE | 2020-04-17 13:49 | NUR ---
CASE MANAGEMENT:REVIEW 04/17/20 SI: T12 COMPRESSION FRACTURE KYPHOPLASTY -- PENDING 98.9 70 18 119/56 95% ON RA NO LABS TODAY IS: IV MORPHINE Q4HRS PRN NORCO 10/325 PO Q4HRS PRN OSCAL PO TID NORVASC PO QD ATENOLOL PO QD PEPCID PO QD MVI PO QD : MED/SURG STATUS 3 EAST DCP: FROM HOME PLAN: KYPHOPLASTY
--- NOTE | 2020-04-17 14:56 | General Progress Note ---
Subjective ROS Limited/Unobtainable: No Constitutional: Reports: malaise, weakness Allergies: Coded Allergies: STRAWBERRY (Verified Allergy, Unknown, Rash, 08/29/18) Subjective There have been the patient continues to have severe intractable back pain. Kline ited mobility if any. Discussed with case management. Authorization received for kyphoplasty. Patient continues to have severe pain and would like to proceed. No focal weakness numbness. Objective Last 24 Hour Vital Signs Date Time Temp Pulse Resp B/P (MAP) Pulse Ox O2 Delivery O2 Flow Rate FiO2 04/17/20 12:00 98.5 59 20 136/68 (90) 96 04/17/20 10:05 71 146/69 04/17/20 10:05 71 146/69 04/17/20 09:00 Room Air 04/17/20 08:00 98.9 70 18 119/56 (77) 95 04/17/20 04:30 97.8 65 18 135/67 (89) 97 04/17/20 00:00 97.6 64 18 134/71 (92) 97 04/16/20 21:00 Room Air 04/16/20 20:00 97.3 69 20 159/79 (105) 96 04/16/20 16:00 98.5 89 20 140/80 (100) 96 Intake and Output 04/16/20 04/17/20 19:00 07:00 Intake Total 800 ml 750 ml Balance 800 ml 750 ml Intake Oral 800 ml 750 ml # Voids 4 4 Height (Feet): 5 Height (Inches): 4.00 Weight (Pounds): 120 Objective General Appearance: WD/WN, alert EENT: PERRL/EOMI, normal ENT inspection Neck: non-tender, normal alignment Cardiovascular: normal peripheral pulses, normal rate, regular rhythm Respiratory/Chest: chest wall non-tender, lungs clear, normal breath sounds Abdomen: normal bowel sounds, non tender, soft, no organomegaly Edema: no edema noted Arm (L), no edema noted Arm (R) 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 Discussed with Dr. Fair who is unfortunately out of town till next Monday. Dr. Perrin is unavailable till next Monday. We will continue current pain regimen. Therapy as tolerated Discussed with case resolution specialist about possibly transferring patient to a contracted hospital where procedure can be performed Nelson Corrigan MD Apr 17, 2020 14:56
--- NOTE | 2020-04-17 16:02 | Cardiology Report ---
APPROVED REPORT EXAM: Two-dimensional and M-mode echocardiogram with Doppler and color Doppler. INDICATION Pre-op M-Mode DIMENSIONS IVSd1.6 (0.7-1.1cm)Left Atrium (MM)2.6 (1.6-4.0cm) LVDd3.1 (3.5-5.6cm)Aortic Root2.6 (2.0-3.7cm) PWd0.8 (0.7-1.1cm)Aortic Cusp Exc.1.6 (1.5-2.0cm) IVSs2.0 cmEPSS0.2 (>1.0cm) LVDs2.3 (2.5-4.0cm) PWs1.2 cm <Conclusion> Normal left ventricular chamber size, systolic function and wall motion. Left ventricular ejection fraction estimated to be 60 %. Mild left ventricular hypertrophy. No evidence of pericardial effusion. All other cardiac chamber sizes are within normal limits. Focal aortic valve sclerosis with adequate cusp excursion. Thickened mitral valve leaflets with normal excursion. Mitral annulus and aortic root calcification. Pulmonic valve not well visualized. Normal tricuspid valve structure. IVC is normal in size with physiological collapse. A color flow and spectral Doppler study was performed and revealed: No aortic regurgitation. Trace mitral regurgitation. Left ventricular diastolic function could not be determined due to arrhythmia. Trace tricuspid regurgitation. Tricuspid systolic velocities suggests peak right ventricular systolic pressure of 14 mmHg.
--- NOTE | 2020-04-17 16:40 | NUR ---
INSURANCE CLINIICALS/REVIEW FAXED TO [facility] [phone]
--- NOTE | 2020-04-17 17:57 | Consultation ---
Consult Note Consult Note full note dictated plan kyphoplasty T12 Assessment/Plan t12 comp fx Wilber Howard MD Apr 17, 2020 17:57
--- NOTE | 2020-04-17 19:50 | NUR ---
NURSE HAND-OFF: Important Events on Shift: pain management Patient Status: stable Diet: regular Pending Orders: Pending Results/Labs: Pending MD notification: Latest Vital Signs: Temperature 98.2 , Pulse 59 , B/P 121 /58 , Respiratory Rate 18 , O2 SAT 96 , Room Air, O2 Flow Rate . Vital Sign Comment: Latest Chase Fall Score: 40 Fall Risk: Medium Risk Safety Measures: Call light Within Reach, Bed Alarm Zone 1, Side Rails Side Rails x2, Bed position Low and Locked. Fall Precautions: Yellow Socks Yellow Gown Door Sign Patient Fall Education Report given to Patricia GUEVARA
--- NOTE | 2020-04-17 20:00 | NUR ---
NURSE NOTES: Received report from ISMAEL Becker. No distress noted, sitting in high fowlers watching tv. In no acute distress, on room air, alert and oriented x4 Complains of back pain but says it is tolerable. Encouraged to call as needed for pain medication.assistance. Bed is locked, in lowest position, bed alarm on, side rails up x2, call light within reach. Will continue to monitor.
--- NOTE | 2020-04-17 20:45 | Consultation ---
DATE OF CONSULTATION: 04/17/2020 SPINE SURGICAL CONSULTATION CONSULTING PHYSICIAN: Wilber Howard MD. REFERRING PHYSICIAN: Nelson Corrigan MD. REASON FOR CONSULTATION: Back pain. HISTORY OF PRESENT ILLNESS: The patient is a very pleasant woman, 89-year-old with one-week history of acute and intractable back pain. She was lifting the cover off of the toilet and trying to fix it and she felt immediate onset of pain. There was no fall associated. She presented to the emergency room. MRI and CT scans obtained confirming T12 compression fracture. Due to intractable pain, she has been admitted. Pain has now not been controlled adequately and a kyphoplasty is being recommended. PAST SURGICAL HISTORY: Status post prior kyphoplasty performed by Dr. Perrin and history of right leg fracture status post IM nailing. History of mastectomy. PAST MEDICAL HISTORY: As noted above. CURRENT MEDICATIONS: Please see medication reconciliation report. ALLERGIES: No known drug allergies. PHYSICAL EXAMINATION: GENERAL: The patient is pleasant and cooperative with exam. She is lying in the hospital bed. MUSCULOSKELETAL: Attempts at log-rolling elicits significant pain. No obvious deformity. NEUROLOGIC: Lower extremities are nonfocal with no obvious neuro deficit. IMAGING: MRI and CT scan reviewed, confirming T12 compression fracture. Minimal retropulsion. No cord compression. DIAGNOSES: 1. T12 compression fracture. 2. Intractable pain. PLAN: At this point, I have had a lengthy and christi discussion with the patient. I have recommended that the patient consider surgical intervention, namely kyphoplasty due to the intractable nature of her pain and inability to mobilize. She has had prior kyphoplasty in the past and she would like to proceed with this. Plan is to schedule it when schedule permits. I will need x-rays of the thoracic and lumbar spine to better understand the overall anatomic alignment of the spine. Wilber Howard M.D. DR: RONDA JOB#: [id number] CC: LENA
[2020-04-17] MEDS: HydrALAZINE 25mg tab ORAL PRN (23:27)
[2020-04-18] VITALS (7 sets, daily range): BP systolic 115–148; BP diastolic 54–80
--- NOTE | 2020-04-18 00:29 | Cardiology Progress Note ---
Subjective DATE OF SERVICE: Apr 17, 2020 Still with back pain and associated immobility No SOB. BP trend remains stable. 2D Echo: normal LVEF, no significant valve abnormalities, no pulmonary hypertension. Objective Last 24 Hour Vital Signs Date Time Temp Pulse Resp B/P (MAP) Pulse Ox O2 Delivery O2 Flow Rate FiO2 04/17/20 23:28 68 165/80 (108) 04/17/20 23:27 165/80 04/17/20 23:05 98.0 04/17/20 21:00 Room Air 04/17/20 20:00 98.0 59 18 144/65 (91) 95 04/17/20 16:00 98.2 59 18 121/58 (79) 96 04/17/20 12:00 98.5 59 20 136/68 (90) 96 04/17/20 10:05 71 146/69 04/17/20 10:05 71 146/69 04/17/20 09:00 Room Air 04/17/20 08:00 98.9 70 18 119/56 (77) 95 04/17/20 04:30 97.8 65 18 135/67 (89) 97 ROS: unchanged from my initial evaluation HEENT: normal ENT inspection LUNGS: diminished breath sounds CARDIAC: normal rate, regular rhythm, normal S1 and S2, systolic murmur - 1/6 systolic murmur base ABDOMEN: normal bowel sounds, non tender, soft EXTREMITIES: no calf tenderness, No edema Assessment/Plan Assessment/Plan T12 compession fracture Prior lumbar compression fx (2019) Hypertension with occasional BP spikes likely related to pain. Osteoporosis Degenerative valve disease Hyperlipidemia Pain control Titrate antiHTN meds as needed; avoid orthostasis potential. PRN meds for BP spikes. Ca++/Vit D suppl Kyphoplasty planned - authoriz'n obtained. DVT prophylaxis Continue statin therapy Maintain beta blockade Elvin Carreno MD Apr 18, 2020 00:29
--- NOTE | 2020-04-18 07:18 | NUR ---
NURSE NOTES: Report received from Brooke GUEVARA, rounds made. Patient resting in semi-fowlers position in bed, AOx4, calm. Respirations even/unlabored on RA. LFA saline lock, scant blood in dressing, catheter in place/dressing secured. Neuros intact, no NT, skin warm, moves all extremities, wiggles, pulses palpable. Bilateral SCDs on. Back pain 4/10, denies need for pain medication at this time. Tolerating regular diet well. Plans for XR of T and L spine today. Call light in reach, bed in lowest position, will continue to monitor.
--- NOTE | 2020-04-18 07:34 | NUR ---
NURSE HAND-OFF: Important Events on Shift: pt voided via bedpan twice last night, and once again this am pain well managed with norco given twice on shift. Gave hydralazine x1 last night d/t high BP, BP has since stabilized. Encouraged patient to turn as tolerated, optifoam on sacral area. Patient Status: stable Diet: regular soft easy chew Pending Orders: Plan is kyphoplasty with Dr Howard likely to take place Monday, pt made aware and willing to wait, had to get authorization Latest Vital Signs: Temperature 98.1 , Pulse 74 , B/P 165 /88 , Respiratory Rate 20 , O2 SAT 100 , Room Air, O2 Flow Rate . Vital Sign Comment: [] Latest Chase Fall Score: 40 Fall Risk: Medium Risk Safety Measures: Call light Within Reach, Bed Alarm Zone 1, Side Rails Side Rails x2, Bed position Low and Locked. Fall Precautions: Yellow Socks Yellow Gown Door Sign Patient Fall Education Report given to Vicki GUEVARA
--- NOTE | 2020-04-18 08:54 | NUR ---
NURSE NOTES: Patient voiding on bedpan, rolls slowly, had BM, small formed x1 at this time, drinking prune juice. Skin care provided, optifoam to sacral area changed, skin intact.
[2020-04-18] MEDS: Docusate 250mg cap ORAL SCH ×2 (08:59→17:48)
[2020-04-18] MEDS: HYDROcodone/Acetamin 10/325 tab ORAL PRN ×2 (08:59→21:49)
[2020-04-18] MEDS: Atenolol 25mg tab ORAL SCH (09:00)
[2020-04-18] MEDS: Calcium Carbonate 500mg w/Vit D 200iu tab ORAL SCH ×3 (09:00→17:48)
--- NOTE | 2020-04-18 09:38 | General Progress Note ---
Subjective ROS Limited/Unobtainable: No Constitutional: Reports: malaise, weakness HEENT: Reports: no symptoms Cardiovascular: Reports: no symptoms Respiratory: Reports: no symptoms Gastrointestinal/Abdominal: Reports: no symptoms Genitourinary: Reports: no symptoms Neurologic/Psychiatric: Reports: no symptoms Endocrine: Reports: no symptoms Hematologic/Lymphatic: Reports: no symptoms Allergies: Coded Allergies: STRAWBERRY (Verified Allergy, Unknown, Rash, 08/29/18) All Systems: reviewed and negative except above Subjective No overnight events. Continues to complain of severe intractable back pain. Received word from insurance that procedure is now approved. Objective Last 24 Hour Vital Signs Date Time Temp Pulse Resp B/P (MAP) Pulse Ox O2 Delivery O2 Flow Rate FiO2 04/18/20 09:00 81 120/65 04/18/20 09:00 Room Air 04/18/20 08:59 81 120/65 04/18/20 08:00 98.2 81 20 120/65 (83) 97 04/18/20 04:00 98.4 65 20 131/80 (97) 96 04/18/20 00:56 63 115/54 (74) 04/18/20 00:00 98.0 76 20 148/64 (92) 96 04/17/20 23:28 68 165/80 (108) 04/17/20 23:27 165/80 04/17/20 23:05 98.0 04/17/20 21:00 Room Air 04/17/20 20:00 98.0 59 18 144/65 (91) 95 04/17/20 16:00 98.2 59 18 121/58 (79) 96 04/17/20 12:00 98.5 59 20 136/68 (90) 96 04/17/20 10:05 71 146/69 04/17/20 10:05 71 146/69 Intake and Output 04/17/20 04/18/20 19:00 07:00 Intake Total 800 ml Output Total 600 ml Balance 800 ml -600 ml Intake Oral 800 ml Output Urine Total 600 ml # Voids 3 3 Height (Feet): 5 Height (Inches): 4.00 Weight (Pounds): 120 Objective General Appearance: WD/WN, alert EENT: PERRL/EOMI, normal ENT inspection Neck: non-tender, normal alignment Cardiovascular: normal peripheral pulses, normal rate, regular rhythm Respiratory/Chest: chest wall non-tender, lungs clear, normal breath sounds Abdomen: normal bowel sounds, non tender, soft, no organomegaly Edema: no edema noted Arm (L), no edema noted Arm (R) Neurologic: repeater operator II-XII grossly normal, alert, oriented x 3 Skin: normal pigmentation Assessment/Plan Problem List: (1) T12 compression fracture ICD Codes: S22.080A - Wedge compression fracture of T11-T12 vertebra, initial encounter for closed fracture SNOMED: 121984469 Status: stable, progressing Assessment/Plan: Authorization finally received from insurance. Discussed with Dr. Fair who is unfortunately out of town till next Monday. Dr. Perrin is unavailable till next Monday. We will continue current pain regimen. Therapy as tolerated Discussed with child support case officer about possibly transferring patient to a contracted hospital where procedure can be performed Nelson Corrigan MD Apr 18, 2020 09:38
--- NOTE | 2020-04-18 09:39 | NUR ---
NURSE NOTES: Offered heat or cold compress to back for additional pain alleviation, patient refused.
--- NOTE | 2020-04-18 10:11 | NUR ---
CASE MANAGEMENT:REVIEW 04/18/20 SI: T12 COMPRESSION FRACTURE C/O SEVERE PAIN 98.2 81 20 120/65 97% ON RA IS: IV MORPHINE Q4HRS PRN NORCO 10/325 PO Q4HRS PRN OSCAL PO TID NORVASC PO QD ATENOLOL PO QD PEPCID PO QD MVI PO QD : MED/SURG STATUS 3 EAST DCP: FROM HOME PLAN: XRAY SPINE KYPHOPLASTY
--- NOTE | 2020-04-18 14:46 | NUR ---
INSURANCE CLINIICALS/REVIEW FAXED TO [facility] [phone]
--- NOTE | 2020-04-18 15:20 | NUR ---
NURSE NOTES: Patient sent down for xray of thoracic and lumbar spine via bed on RA, in stable condition at 1453, returned at 1520.
--- NOTE | 2020-04-18 16:18 | Diagnostic Imaging Report ---
History: PAIN Exam: XR T SPINE 2 views Comparison: FINDINGS/IMPRESSION: Osteopenia. T12 compression deformity is not as well evaluated as on the preceding thoracic spine MRI. The overall vertebral body height does not appear significantly changed on the current radiographs. No evidence of malalignment.
--- NOTE | 2020-04-18 16:23 | Diagnostic Imaging Report ---
History: PAIN Exam: XR L SPINE 3 views Comparison: MRI 04/11/[address] 04/11/2020 FINDINGS/IMPRESSION: No significant interval change in appearance of the previously noted compression deformities. No malalignment L2-L4 vertebral plasties again noted. Osteopenia.
--- NOTE | 2020-04-18 18:06 | NUR ---
NURSE NOTES: Dr. Corrigan notified that PRN pain medications , orders to renew received. Dr. Howard updated with X-ray (thoracic and lumbar) results, no further orders.
[2020-04-18] MEDS ORDERED: Morphine Sulfate 2mg/ml Inj(IV/IM USE ONLY) IVP PRN (18:15)
--- NOTE | 2020-04-18 19:32 | NUR ---
NURSE HAND-OFF: Important Events on Shift:XRAY thoracic and lumbar spine done, PT (sat up in chair for 2 hours) Patient Status: stable Diet: regular Pending Orders: none Pending Results/Labs:none Pending MD notification:none Latest Vital Signs: Temperature 97.6 , Pulse 65 , B/P 135 /66 , Respiratory Rate 19 , O2 SAT 99 , Room Air, O2 Flow Rate . Vital Sign Comment: none Latest Chase Fall Score: 70 Fall Risk: High Risk Safety Measures: Call light Within Reach, Bed Alarm Zone 1, Side Rails Side Rails x2, Bed position Low and Locked. Fall Precautions: Yellow Socks Yellow Gown Door Sign Patient Fall Education Report given to Nika GUEVARA.
--- NOTE | 2020-04-18 20:05 | NUR ---
NURSES NOTE: Pt in bed, A/OX4, denies pain currently. No outward s/s of distress noted. Breathing pattern is even and unlabored on RA. Optifoam placed on bilateral heels and sacral area. Pt to be turned Q2H. IV L FA is intact, hep locked. All due medications will be administered. Bed at lowest level. Call light within reach. Pt will continue to be monitored.
--- NOTE | 2020-04-19 02:40 | Cardiology Progress Note ---
Subjective DATE OF SERVICE: Apr 18, 2020 Still with severe back pain and associated immobility No SOB. BP trend remains stable. 2D Echo: normal LVEF, no significant valve abnormalities, no pulmonary hypertension. Objective Last 24 Hour Vital Signs Date Time Temp Pulse Resp B/P (MAP) Pulse Ox O2 Delivery O2 Flow Rate FiO2 04/18/20 21:00 Room Air 04/18/20 20:00 98.1 66 18 131/66 (87) 95 66 04/18/20 16:00 97.6 65 19 135/66 (89) 99 65 04/18/20 12:00 97.9 58 18 124/60 (81) 98 58 04/18/20 09:00 81 120/65 04/18/20 09:00 Room Air 04/18/20 08:59 81 120/65 04/18/20 08:00 98.2 81 20 120/65 (83) 97 04/18/20 04:00 98.4 65 20 131/80 (97) 96 ROS: unchanged from my initial evaluation HEENT: normal ENT inspection LUNGS: diminished breath sounds CARDIAC: normal rate, regular rhythm, normal S1 and S2, systolic murmur - 1/6 systolic murmur base ABDOMEN: normal bowel sounds, non tender, soft EXTREMITIES: no calf tenderness, No edema Assessment/Plan Assessment/Plan T12 compession fracture Prior lumbar compression fx (2019) Hypertension with occasional BP spikes likely related to pain. Osteoporosis Degenerative valve disease Hyperlipidemia Pain control Titrate antiHTN meds as needed; avoid orthostasis potential. PRN meds for BP spikes. Ca++/Vit D suppl Kyphoplasty to be scheduled - authoriz'n obtained. DVT prophylaxis Continue statin therapy Maintain beta blockade Elvin Carreno MD Apr 19, 2020 02:40
[2020-04-19 04:00] VITALS: BP 124/68
--- NOTE | 2020-04-19 07:35 | NUR ---
NURSE NOTES: Report received from Nika GUEVARA, rounds made. Patient resting in semi-fowlers position in bed, AOx4, calm. Respirations even/unlabored on RA. LFA saline lock, scant blood in dressing, catheter in place/dressing secured. Neuros intact, no NT, skin warm, moves all extremities, wiggles, pulses palpable. Bilateral SCDs on. Back pain 7/10, will medicate as ordered, to be comfortable and ready for PT today, patient agrees. Tolerating regular diet fair. Call light in reach, bed in lowest position, will continue to monitor.
--- NOTE | 2020-04-19 07:42 | NUR ---
NURSE HAND-OFF: Important Events on Shift:[NONE] Patient Status: [STABLE] Diet: [REGULAR] Pending Orders: [NONE] Pending Results/Labs:[NONE] Pending MD notification:[NONE] Latest Vital Signs: Temperature 98.4 , Pulse 69 , B/P 124 /68 , Respiratory Rate 17 , O2 SAT 95 , Room Air, O2 Flow Rate . Vital Sign Comment: [WNL] Latest Chase Fall Score: 70 Fall Risk: High Risk Safety Measures: Call light Within Reach, Bed Alarm Zone 1, Side Rails Side Rails x2, Bed position Low and Locked. Fall Precautions: Yellow Socks Yellow Gown Door Sign Patient Fall Education Report given to [ISMAEL HOLLAND].
[2020-04-19 08:00] VITALS: BP 132/66
[2020-04-19] MEDS: Atenolol 25mg tab ORAL SCH (08:06)
[2020-04-19] MEDS: Calcium Carbonate 500mg w/Vit D 200iu tab ORAL SCH ×3 (08:08→17:18)
[2020-04-19] MEDS: Docusate 250mg cap ORAL SCH ×2 (08:08→17:18)
[2020-04-19] MEDS: HYDROcodone/Acetamin 10/325 tab ORAL PRN ×2 (08:09→19:53)
--- NOTE | 2020-04-19 09:15 | General Progress Note ---
Subjective ROS Limited/Unobtainable: No Constitutional: Reports: malaise, weakness HEENT: Reports: no symptoms Cardiovascular: Reports: no symptoms Respiratory: Reports: no symptoms Gastrointestinal/Abdominal: Reports: no symptoms Genitourinary: Reports: no symptoms Neurologic/Psychiatric: Reports: no symptoms Endocrine: Reports: no symptoms Hematologic/Lymphatic: Reports: no symptoms Allergies: Coded Allergies: STRAWBERRY (Verified Allergy, Unknown, Rash, 08/29/18) All Systems: reviewed and negative except above Subjective No overnight events. Continues to complain of severe intractable back pain. Received word from insurance that procedure is now approved. tentatively scheduled for monday. Objective Last 24 Hour Vital Signs Date Time Temp Pulse Resp B/P (MAP) Pulse Ox O2 Delivery O2 Flow Rate FiO2 04/19/20 08:24 Room Air 04/19/20 08:07 84 132/66 04/19/20 08:06 84 132/66 04/19/20 08:00 98.7 84 21 132/66 (88) 99 84 04/19/20 04:00 98.4 69 17 124/68 (86) 95 69 04/18/20 21:00 Room Air 04/18/20 20:00 98.1 66 18 131/66 (87) 95 66 04/18/20 16:00 97.6 65 19 135/66 (89) 99 65 04/18/20 12:00 97.9 58 18 124/60 (81) 98 58 Intake and Output 04/18/20 04/19/20 19:00 07:00 Intake Total 700 ml 240 ml Balance 700 ml 240 ml Intake Oral 700 ml 240 ml # Voids 3 3 # Bowel Movements 2 Height (Feet): 5 Height (Inches): 4.00 Weight (Pounds): 120 Objective General Appearance: WD/WN, alert EENT: PERRL/EOMI, normal ENT inspection Neck: non-tender, normal alignment Cardiovascular: normal peripheral pulses, normal rate, regular rhythm Respiratory/Chest: chest wall non-tender, lungs clear, normal breath sounds Abdomen: normal bowel sounds, non tender, soft, no organomegaly Edema: no edema noted Arm (L), no edema noted Arm (R) Neurologic: electrophysiology tech II-XII grossly normal, alert, oriented x 3 Skin: normal pigmentation Assessment/Plan Problem List: (1) T12 compression fracture ICD Codes: S22.080A - Wedge compression fracture of T11-T12 vertebra, initial encounter for closed fracture SNOMED: 106038804 Status: stable, progressing Assessment/Plan: stable iv and oral pain meds as needed monitor bp dvt/stress ulcer prophylaxis kyphoplasty scheduled for monday Nelson Corrigan MD Apr 19, 2020 09:15
--- NOTE | 2020-04-19 10:30 | NUR ---
CASE MANAGEMENT:REVIEW 04/19/20 SI: T12 COMPRESSION FRACTURE SEVERE INTRACTABLE PAIN 98.7 84 21 132/66 99% ON RA IS: IV MORPHINE Q4HRS PRN NORCO 10/325 PO Q4HRS PRN OSCAL PO TID NORVASC PO QD ATENOLOL PO QD PEPCID PO QD MVI PO QD : MED/SURG STATUS 3 EAST DCP: FROM HOME PLAN: KYPHOPLASTY PENDING
[2020-04-19 12:00] VITALS: BP 138/67
--- NOTE | 2020-04-19 14:02 | NUR ---
INSURANCE CLINIICALS/REVIEW FAXED TO [facility] [phone]
[2020-04-19 16:00] VITALS: BP 124/61
--- NOTE | 2020-04-19 17:41 | Cardiology Progress Note ---
Subjective DATE OF SERVICE: Apr 19, 2020 Still with severe back pain and associated immobility; awaiting surgery on 04/21 No SOB. BP trend remains stable. 2D Echo: normal LVEF, no significant valve abnormalities, no pulmonary hypertension. Objective Last 24 Hour Vital Signs Date Time Temp Pulse Resp B/P (MAP) Pulse Ox O2 Delivery O2 Flow Rate FiO2 04/19/20 16:00 98.3 68 19 124/61 (82) 98 68 04/19/20 12:00 98.1 70 18 138/67 (90) 97 70 04/19/20 08:24 Room Air 04/19/20 08:07 84 132/66 04/19/20 08:06 84 132/66 04/19/20 08:00 98.7 84 21 132/66 (88) 99 84 04/19/20 04:00 98.4 69 17 124/68 (86) 95 69 04/18/20 21:00 Room Air 04/18/20 20:00 98.1 66 18 131/66 (87) 95 66 ROS: unchanged from my initial evaluation HEENT: normal ENT inspection LUNGS: diminished breath sounds CARDIAC: normal rate, regular rhythm, normal S1 and S2, systolic murmur - 1/6 systolic murmur base ABDOMEN: normal bowel sounds, non tender, soft EXTREMITIES: no calf tenderness, No edema Assessment/Plan Assessment/Plan T12 compession fracture Prior lumbar compression fx (2019) Hypertension with occasional BP spikes likely related to pain. Osteoporosis Degenerative valve disease Hyperlipidemia Pain control Titrate antiHTN meds as needed; avoid orthostasis potential. PRN meds for BP spikes. Ca++/Vit D suppl Kyphoplasty scheduled 04/21 - authoriz'n obtained. DVT prophylaxis Continue statin therapy Maintain beta blockade Elvin Carreno MD Apr 19, 2020 17:41
--- NOTE | 2020-04-19 19:32 | NUR ---
NURSE HAND-OFF: Important Events on Shift:PT/ambulated in room, had normal BM x1 Patient Status: stable Diet: regular Pending Orders: none Pending Results/Labs:none Pending MD notification:none Latest Vital Signs: Temperature 98.3 , Pulse 68 , B/P 124 /61 , Respiratory Rate 19 , O2 SAT 98 , Room Air, O2 Flow Rate . Vital Sign Comment: none Latest Chase Fall Score: 70 Fall Risk: High Risk Safety Measures: Call light Within Reach, Bed Alarm Zone 1, Side Rails Side Rails x2, Bed position Low and Locked. Fall Precautions: Yellow Socks Yellow Gown Door Sign Patient Fall Education Report given to Nika GUEVARA.
[2020-04-19 20:00] VITALS: BP 143/67
--- NOTE | 2020-04-19 20:40 | NUR ---
NURSES NOTE: Report received from ISMAEL Cohen. Rounds made. Pt in bed, A/OX4, states she has 6/10 pain in lower back. [place] 10-325mg given- f/u completed and medication effective. No outward s/s of distress noted. Breathing pattern is even and unlabored on RA. IV L FA, intact, hep locked. Sacral area covered with Optifoam and bilateral heels. All due medications will be administered. Bed at lowest level, call light within reach. Pt will continue to be monitored.
[2020-04-20] VITALS (7 sets, daily range): BP systolic 130–158; BP diastolic 56–75
--- NOTE | 2020-04-20 03:30 | Consultation ---
DATE OF CONSULTATION: 04/12/2020 CARDIOLOGY CONSULTATION CONSULTING PHYSICIAN: Elvin Carreno MD REFERRING PHYSICIAN: Nelson Corrigan MD REASON FOR CONSULTATION: Preoperative cardiovascular evaluation for spine surgery. HISTORY OF PRESENT ILLNESS: This 89-year-old [place]an female has a history of osteoporosis and prior lumbar compression fracture with kyphoplasty last year. She presented to the hospital with intractable back pain several days ago. She notes it started when she was trying to lift the toilet seat. The pain was immediate and uncontrollable. An MRI done following her presentation here confirmed a new T12 compression fracture. PAST MEDICAL HISTORY: Includes hypertension, history of lumbar compression fracture, osteoporosis, degenerative valve disease, hyperlipidemia, breast cancer status post mastectomy, history of fracture of the left lower extremity and surgery. MEDICATIONS: Reviewed and reconciled. ALLERGIES: None known. FAMILY HISTORY: Noncontributory. SOCIAL HISTORY: Negative for smoking, alcohol, or substance abuse. REVIEW OF SYSTEMS: A 10-point review of systems performed, all negative other than noted above. PHYSICAL EXAMINATION: VITAL SIGNS: Blood pressure 151/95, heart rate 109, respiratory rate 18, afebrile, oxygen saturation on room air 96 to 98%. HEENT: Normocephalic, atraumatic. Conjunctivae pink. Oropharynx clear. NECK: Supple. Jugular venous pressure normal. Carotid upstrokes without delay. No bruits. LUNGS: Clear. No breast mass. Mastectomy scar clean. CARDIAC: Regular rhythm rate. Normal S1, S2 with a 1/6 systolic murmur at the apex. ABDOMEN: Soft, nontender. EXTREMITIES: No edema. NEUROLOGIC: Nonfocal. SKIN: No skin breakdown. LABORATORY DATA: Reviewed. EKG pending. IMPRESSION: 1. Elevated blood pressure, likely due to acute pain. 2. Acute compression fracture. 3. History of hypertension. PLAN: 1. Beta-betty therapy p.r.n. 2. Hydralazine for blood pressure spikes. 3. DVT prophylaxis. 4. Follow up laboratory studies. 5. We will review EKG and echocardiogram. Elvin Carreno M.D. DR: LIAM JOB#: [id number] CC:
--- NOTE | 2020-04-20 06:41 | NUR ---
NURSE HAND-OFF: Important Events on Shift:[NONE] Patient Status: [STABLE] Diet: [REGULAR] Pending Orders: [NONE] Pending Results/Labs:[NONE] Pending MD notification:[NONE] Latest Vital Signs: Temperature 98.2 , Pulse 72 , B/P 147 /74 , Respiratory Rate 18 , O2 SAT 95 , Room Air, O2 Flow Rate . Vital Sign Comment: [WNL] Latest Chase Fall Score: 70 Fall Risk: High Risk Safety Measures: Call light Within Reach, Bed Alarm Zone 1, Side Rails Side Rails x2, Bed position Low and Locked. Fall Precautions: Yellow Socks Yellow Gown Door Sign Patient Fall Education Report given to [].
--- NOTE | 2020-04-20 07:26 | NUR ---
NURSE NOTES: Report received from Nika GUEVARA, rounds made. Patient resting in semi-fowlers position in bed, AOx4, calm. Respirations even/unlabored on RA. LFA saline lock, scant blood in dressing, catheter in place/dressing secured. Neuros intact, no NT, skin warm, moves all extremities, wiggles, pulses palpable. Bilateral SCDs on. Back pain 6-7/10, will medicate as ordered, to be comfortable and ready for PT today, patient agrees. Also discussed with patient regarding turning/repositioning for skin precautions and preventing skin breakdown, verbalized understanding. Optifoam to sacral and bilateral heels intact as prophylaxsis. Will assess skin and provide skin care with each bedpan use. Tolerating regular diet fair. Call light in reach, bed in lowest position, will continue to monitor.
--- NOTE | 2020-04-20 07:51 | NUR ---
HAND OFF: Report given to ISMAEL Cohen.
[2020-04-20] MEDS: HYDROcodone/Acetamin 10/325 tab ORAL PRN ×2 (08:24→22:54)
[2020-04-20] MEDS: Atenolol 25mg tab ORAL SCH (08:25)
[2020-04-20] MEDS: Calcium Carbonate 500mg w/Vit D 200iu tab ORAL SCH ×3 (08:25→18:09)
[2020-04-20] MEDS: Docusate 250mg cap ORAL SCH ×2 (08:25→18:09)
--- NOTE | 2020-04-20 12:38 | NUR ---
CASE MANAGEMENT:REVIEW SI;T12 COMPRESSION FRACTURE. HTN. 98.3 75 18 147/74 92% ON RA NO LABS AVAILABLE IS;NORCO PO Q4 PRN NORVASC PO Q6 PRN ATENOLOL PO QD PEPCID PO QD MED SURG STATUS DCP;FROM HOME PLAN; KYPHOPLASTY
--- NOTE | 2020-04-20 15:05 | Orthopedic Spine Progress Note ---
Ortho Spine - Progress Note Subjective Symptoms: other - co back pain Objective Vital Signs: Last 24 Hour Vital Signs Date Time Temp Pulse Resp B/P (MAP) Pulse Ox O2 Delivery O2 Flow Rate FiO2 04/20/20 12:00 98.2 64 18 130/56 (80) 92 64 04/20/20 08:25 75 136/57 04/20/20 08:25 75 136/57 04/20/20 08:18 Room Air 04/20/20 08:00 98.3 75 18 136/57 (83) 97 75 04/20/20 04:00 98.2 72 18 147/74 (98) 95 72 04/20/20 00:00 97.9 67 18 130/60 (83) 95 67 04/19/20 21:00 Room Air 04/19/20 20:00 98.2 73 18 143/67 (92) 98 73 04/19/20 16:00 98.3 68 19 124/61 (82) 98 68 I&O: Intake and Output 04/19/20 04/20/20 19:00 07:00 Intake Total 700 ml 240 ml Balance 700 ml 240 ml Intake Oral 700 ml 240 ml # Voids 3 2 # Bowel Movements 1 Neuro Status: normal Plan Additional Comments: Plan kyphoplasty t12 04/21 at 1pm Wilber Howard MD Apr 20, 2020 15:05
--- NOTE | 2020-04-20 16:13 | General Progress Note ---
Subjective ROS Limited/Unobtainable: No Constitutional: Reports: malaise, weakness HEENT: Reports: no symptoms Cardiovascular: Reports: no symptoms Respiratory: Reports: no symptoms Gastrointestinal/Abdominal: Reports: no symptoms Genitourinary: Reports: no symptoms Neurologic/Psychiatric: Reports: no symptoms Endocrine: Reports: no symptoms Hematologic/Lymphatic: Reports: no symptoms Allergies: Coded Allergies: STRAWBERRY (Verified Allergy, Unknown, Rash, 08/29/18) All Systems: reviewed and negative except above Subjective c/o back pain. requiring iv and po pain meds for pain control. very limited ROM due to pain. spine noted- plans for surgery tomorrow. d/w pt- anxious to proceed Objective Last 24 Hour Vital Signs Date Time Temp Pulse Resp B/P (MAP) Pulse Ox O2 Delivery O2 Flow Rate FiO2 04/20/20 12:00 98.2 64 18 130/56 (80) 92 64 04/20/20 08:25 75 136/57 04/20/20 08:25 75 136/57 04/20/20 08:18 Room Air 04/20/20 08:00 98.3 75 18 136/57 (83) 97 75 04/20/20 04:00 98.2 72 18 147/74 (98) 95 72 04/20/20 00:00 97.9 67 18 130/60 (83) 95 67 04/19/20 21:00 Room Air 04/19/20 20:00 98.2 73 18 143/67 (92) 98 73 Intake and Output 04/19/20 04/20/20 19:00 07:00 Intake Total 700 ml 240 ml Balance 700 ml 240 ml Intake Oral 700 ml 240 ml # Voids 3 2 # Bowel Movements 1 Height (Feet): 5 Height (Inches): 4.00 Weight (Pounds): 120 Objective General Appearance: WD/WN, alert EENT: PERRL/EOMI, normal ENT inspection Neck: non-tender, normal alignment Cardiovascular: normal peripheral pulses, normal rate, regular rhythm Respiratory/Chest: chest wall non-tender, lungs clear, normal breath sounds Abdomen: normal bowel sounds, non tender, soft, no organomegaly Edema: no edema noted Arm (L), no edema noted Arm (R) 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
[2020-04-20] MEDS: D5NS 1,000 ML IV SCH (16:46)
--- NOTE | 2020-04-20 17:46 | Anethesia Preoperative Eval ---
Anesthesia Pre-op PMH/ROS General Date of Evaluation: Apr 20, 2020 Time of Evaluation: 17:48 Anesthesiologist: Aydin ASA Score: ASA 4 Mallampati Score Class I : Soft palate, uvula, fauces, pillars visible Class II: Soft palate, uvula, fauces visible Class III: Soft palate, base of uvula visible Class IV: Only hard plate visible Mallampati Classification: Class II Surgeon: Anita Diagnosis: T12 Compression Fracture Surgical Procedure: Kyphoplasty, T12 Anesthesia History: none Family History: no anesthesia problems Allergies: Coded Allergies: STRAWBERRY (Verified Allergy, Unknown, Rash, 08/29/18) Medications: see eMAR Patient NPO?: Yes Past Medical History Cardiovascular: Reports: other - HL, Heart Murmur Hematology/Immune: Reports: other - Breast CA Musculoskeletal/Integumentary: Reports: other - T12 Fracture, Weakness PSxH Narrative: R Mastectomy Anesthesia Pre-op Phys. Exam Physician Exam Last Vital Signs Date Time Temp Pulse Resp B/P (MAP) Pulse Ox O2 Delivery O2 Flow Rate FiO2 04/20/20 16:00 98.1 68 18 132/65 (87) 97 68 04/20/20 08:18 Room Air Constitutional: NAD Neurologic: CN 2-12 intact Cardiovascular: RRR Respiratory: CTA Gastrointestinal: S/NT/ND Airway Exam Mallampati Score: Class II MO: limited ROM: limited Teeth: missing, intact Anesthesia Pre-op A/P Risk Assessment & Plan Assessment: ASA 4 Plan: GA Status Change Before Surgery: No Pre-Antibiotics Drug: Julio César Cisneros MD Apr 20, 2020 17:46
--- NOTE | 2020-04-20 18:00 | NUR ---
NURSE NOTES: Complete bath done, skin care provided, all skin assessed. Bilateral elbows intact, moisturized. Sacral intact, pink areas noted, applied new optifoam to body prominence. Bilateral heels intact, optifoam applied as skin barrier. Addendum: 04/20/20 at 1853 by Vicki Prince RN Instructed patient on CDB and ankle rotations while in bed, patient demonstrated correctly, encouraged patient to do every 1 hour, bilateral SCDs on.
--- NOTE | 2020-04-20 18:44 | NUR ---
NURSE NOTES: Reviewed consent for Kyphoplasty T12 scheduled 04/[address] Howard, signed by patient. NPO at midnight, patient aware.
--- NOTE | 2020-04-20 19:25 | NUR ---
NURSE HAND-OFF: Important Events on Shift:Consent signed for Kyphoplasty T12, plans for procedure 04/21 at 1300, NPO at midnight, IVF started as ordered Patient Status: stable Diet: Regular (NPO at MDN) Pending Orders: Kyphoplasty 04/21 Pending Results/Labs:none Pending MD notification:none Latest Vital Signs: Temperature 98.1 , Pulse 68 , B/P 132 /65 , Respiratory Rate 18 , O2 SAT 97 , Room Air, O2 Flow Rate . Vital Sign Comment: none Latest Chase Fall Score: 70 Fall Risk: High Risk Safety Measures: Call light Within Reach, Bed Alarm Zone 1, Side Rails Side Rails x2, Bed position Low and Locked. Fall Precautions: Yellow Socks Yellow Gown Door Sign Patient Fall Education Report given to [place] GUEVARA.
--- NOTE | 2020-04-20 19:44 | NUR ---
NURSE NOTES: Received report from ISMAEL Cohen. Patient seen at bedside. In stable condition and denies any pain as of the moment.
[2020-04-21] VITALS (14 sets, daily range): BP systolic 126–183; BP diastolic 60–87
--- NOTE | 2020-04-21 01:15 | Cardiology Progress Note ---
Subjective DATE OF SERVICE: Apr 20, 2020 Still with severe back pain and associated immobility; awaiting surgery on 04/21 No SOB. BP trend remains stable. 2D Echo: normal LVEF, no significant valve abnormalities, no pulmonary hypertension. EKG (04/20) Sinus rhythm with LAE; no significant abnormalities. Objective Last 24 Hour Vital Signs Date Time Temp Pulse Resp B/P (MAP) Pulse Ox O2 Delivery O2 Flow Rate FiO2 04/20/20 23:55 98.2 74 18 158/75 (102) 96 74 04/20/20 23:24 98.2 04/20/20 21:00 Room Air 04/20/20 20:00 98.7 70 18 141/65 (90) 95 70 04/20/20 16:00 98.1 68 18 132/65 (87) 97 68 04/20/20 12:00 98.2 64 18 130/56 (80) 92 64 04/20/20 08:25 75 136/57 04/20/20 08:25 75 136/57 04/20/20 08:18 Room Air 04/20/20 08:00 98.3 75 18 136/57 (83) 97 75 04/20/20 04:00 98.2 72 18 147/74 (98) 95 72 ROS: unchanged from my initial evaluation HEENT: normal ENT inspection LUNGS: diminished breath sounds CARDIAC: normal rate, regular rhythm, normal S1 and S2, systolic murmur - 1/6 systolic murmur base ABDOMEN: normal bowel sounds, non tender, soft EXTREMITIES: no calf tenderness, No edema Assessment/Plan Assessment/Plan T12 compession fracture Prior lumbar compression fx (2018) Hypertension with occasional BP spikes likely related to pain. Osteoporosis Degenerative valve disease Hyperlipidemia Stable for anesthesia from cardiovascular standpoint with no increased risks Pain control Titrate antiHTN meds as needed; avoid orthostasis potential. PRN meds for BP spikes. Ca++/Vit D suppl Kyphoplasty scheduled 04/21 - authoriz'n obtained. DVT prophylaxis Continue statin therapy Maintain beta blockade Elvin Carreno MD Apr 21, 2020 01:15
--- NOTE | 2020-04-21 04:38 | NUR ---
NURSE NOTES: wound photos taken as per [facility] protocol. Skin intact and covered with optifoam
--- NOTE | 2020-04-21 06:23 | NUR ---
NURSE HAND-OFF: Important Events on Shift:Wound care photos updated, patient NPO since midnight, Blood transfusion consent obtained, will be sent to kyphoplasty today at 1300 Patient Status: stable Diet:npo midnight Pending Orders: [] Pending Results/Labs:[] Pending MD notification:[] Latest Vital Signs: Temperature 97.5 , Pulse 74 , B/P 151 /68 , Respiratory Rate 18 , O2 SAT 97 , Room Air, O2 Flow Rate . Vital Sign Comment: [] Latest Chase Fall Score: 60 Fall Risk: High Risk Safety Measures: Call light Within Reach, Bed Alarm Zone 1, Side Rails Side Rails x2, Bed position Low and Locked. Fall Precautions: Yellow Socks Yellow Gown Door Sign Patient Fall Education Report given to Maame GUEVARA
--- NOTE | 2020-04-21 07:37 | NUR ---
NURSE NOTES: Report given to Maame GUEVARA
[2020-04-21] MEDS ORDERED: Lidocaine 1%/ 10mg/ml/EPI 0.01mg/ml 20ml INJ ONE (07:39)
[2020-04-21] MEDS ORDERED: Isovue-M 300 15ml INJ ONE (07:39)
--- NOTE | 2020-04-21 07:40 | NUR ---
NURSE NOTES: Received report from Meceh GUEVARA. Patient is awake and oriented, in no apparent distress, reporting no pain. NPO since midnight for hyphoplasty today, per Dr. Shekhar leigh for patient to have PO meds with sips, order entered. Patient updated on plan of care for the day. Side rails upx2, bed low and locked, call light within reach.
[2020-04-21] MEDS ORDERED: dexAMETHasone 10mg/ml Inj PF*Surgery use IV ONE (08:00)
--- NOTE | 2020-04-21 08:39 | General Progress Note ---
Subjective ROS Limited/Unobtainable: No Constitutional: Reports: malaise, weakness HEENT: Reports: no symptoms Cardiovascular: Reports: no symptoms Respiratory: Reports: no symptoms Gastrointestinal/Abdominal: Reports: no symptoms Genitourinary: Reports: no symptoms Neurologic/Psychiatric: Reports: no symptoms Endocrine: Reports: no symptoms Hematologic/Lymphatic: Reports: no symptoms Allergies: Coded Allergies: STRAWBERRY (Verified Allergy, Unknown, Rash, 08/29/18) All Systems: reviewed and negative except above Subjective c/o back pain. requiring iv and po pain meds for pain control. very limited ROM due to pain. spine noted- plans for surgery tomorrow. d/w pt- anxious to proceed Objective Last 24 Hour Vital Signs Date Time Temp Pulse Resp B/P (MAP) Pulse Ox O2 Delivery O2 Flow Rate FiO2 04/21/20 08:00 98.0 90 16 161/69 (99) 97 90 04/21/20 04:00 97.5 62 18 151/68 (95) 97 74 04/20/20 23:55 98.2 74 18 158/75 (102) 96 74 04/20/20 23:24 98.2 04/20/20 21:00 Room Air 04/20/20 20:00 98.7 70 18 141/65 (90) 95 70 04/20/20 16:00 98.1 68 18 132/65 (87) 97 68 04/20/20 12:00 98.2 64 18 130/56 (80) 92 64 Intake and Output 04/20/20 04/21/20 19:00 07:00 Intake Total 700 ml 1080 ml Balance 700 ml 1080 ml Intake Oral 600 ml 480 ml IV Total 100 ml 600 ml # Voids 1 2 Height (Feet): 5 Height (Inches): 4.00 Weight (Pounds): 120 Objective General Appearance: WD/WN, alert EENT: PERRL/EOMI, normal ENT inspection Neck: non-tender, normal alignment Cardiovascular: normal peripheral pulses, normal rate, regular rhythm Respiratory/Chest: chest wall non-tender, lungs clear, normal breath sounds Abdomen: normal bowel sounds, non tender, soft, no organomegaly Edema: no edema noted Arm (L), no edema noted Arm (R) 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
[2020-04-21] MEDS: Calcium Carbonate 500mg w/Vit D 200iu tab ORAL SCH ×3 (09:19→17:30)
[2020-04-21] MEDS: Docusate 250mg cap ORAL SCH ×2 (09:19→17:30)
[2020-04-21] MEDS: Atenolol 25mg tab ORAL SCH (09:19)
[2020-04-21] MEDS ORDERED: fentaNYL 100 mcg/2 mL IV ONE (11:25)
[2020-04-21] MEDS ORDERED: Lidocaine 1% MPF 10mg/ml 5ml ONE (11:47)
--- NOTE | 2020-04-21 11:50 | NUR ---
NURSE NOTES: Patient taken down for surgery by transporter.
[2020-04-21] MEDS ORDERED: Rocuronium Bromide 50mg/5ml Inj IV ONE (11:52)
[2020-04-21] MEDS: D5NS 1,000 ML IV SCH (12:04)
[2020-04-21] MEDS ORDERED: Hydromorphone 0.5mg/0.5ml inj IVP PRN (12:30)
[2020-04-21] MEDS ORDERED: Sterile Water Irrig 1000ml IRRIG ONE (12:30)
[2020-04-21] MEDS ORDERED: Neostigmine 1mg/ml 10ml Inj ONE (12:30)
--- NOTE | 2020-04-21 12:43 | Pre-Procedure Note/Attestation ---
Pre-Procedure Note/Attestation Complete Prior to Procedure Procedure Narrative: Kyphoplasty T12 Indications for Procedure Pre-Operative Diagnosis: T12 Fx Attestation I attest that I discussed the nature of the procedure; its benefits; risks and complications; and alternatives (and the risks and benefits of such alternatives), prior to the procedure, with the patient (or the patient's legal passenger relations representative). I attest that, if there was a reasonable possibility of needing a blood transfusion, the patient (or the patient's legal passenger relations representative) was given the [facility] standardized written summary, pursuant to the Leonel Jairo Blood Safety Act ([place] Health and Safety Code # 1645, as amended). I attest that I re-evaluated the patient just prior to the surgery and that there has been no change in the patient's H&P, except as documented below: Wilber Howard MD Apr 21, 2020 12:43
[2020-04-21] MEDS ORDERED: ePHEDrine 50mg/ml Inj ONE (13:03)
[2020-04-21] MEDS ORDERED: Sodium Chloride 10ml vial INJ ONE (13:03)
--- NOTE | 2020-04-21 13:06 | NUR ---
CASE MANAGEMENT:REVIEW SI;T12 COMPRESSION FRACTURE. HTN. IN SURGERY TODAY FOR KYPHOPLASTY 98.3 90 18 161/69 96% ON RA IS;ATENOLOL PO QD NORVASC PO QD MED SURG STATUS DCP;FROM HOME
--- NOTE | 2020-04-21 13:07 | Brief Operative Note ---
Immediate Post Operative Note Operative Note Pre-op Diagnosis: T12 Fx Procedure: T12 kyphoplasty Post-op Diagnosis: same as pre-op Findings: consistent w/pre-op dx studies Surgeon: kelley Anesthesiologist: terrell Anesthesia: general Specimen: none Complications: none Condition: stable Fluids: 250 Estimated Blood Loss: none Drains: none Implant(s) used?: Yes - pmma Wilber Howard MD Apr 21, 2020 13:07
[2020-04-21] MEDS ORDERED: Glycopyrrolate 0.2mg/ml 1ml Vial ONE (14:00)
--- NOTE | 2020-04-21 14:14 | Immediate Post-Op Evaluation ---
Immediate Post-Op Evalulation Immediate Post-Op Evalulation Procedure: Kyphoplasty T12 Date of Evaluation: Apr 21, 2020 Time of Evaluation: 14:13 IV Fluids: 400 Blood Products: none Estimated Blood Loss: min Urinary Output: none Blood Pressure Systolic: 164 Blood Pressure Diastolic: 82 Pulse Rate: 78 Respiratory Rate: 20 O2 Sat by Pulse Oximetry: 98 Temperature (Fahrenheit): 97.6 Pain Score (1-10): 1 Nausea: No Vomiting: No Complications none Patient Status: reacts, patent, extubated Marquise Elmore MD Apr 21, 2020 14:14
--- NOTE | 2020-04-21 14:48 | 48 Hour Post Anesthesia Eval ---
Post Anesthesia Evaluation Procedure: Kyphoplasty T12 Date of Evaluation: Apr 21, 2020 Time of Evaluation: 14:47 Blood Pressure Systolic: 158 0: 68 Pulse Rate: 73 Respiratory Rate: 18 Temperature (Fahrenheit): 97.5 O2 Sat by Pulse Oximetry: 98 Airway: patent Nausea: No Vomiting: No Pain Intensity: 2 Hydration Status: adequate Cardiopulmonary Status: stable Mental Status/LOC: patient returned to baseline Follow-up Care/Observations: n/a Post-Anesthesia Complications: none Follow-up care needed: N/A Marquise Elmore MD Apr 21, 2020 14:48
[2020-04-21] MEDS ORDERED: D5NS 1000ml IV ONE (15:07)
--- NOTE | 2020-04-21 15:15 | Operative Note - Dictated ---
DATE OF OPERATION: 04/21/2020 SURGEON: Wilber Howard MD. GROUND PRODUCTS DIRECTOR: None. ANESTHESIOLOGIST: Marquise Elmore MD. ANESTHESIA TYPE: General endotracheal anesthesia. PREOPERATIVE DIAGNOSES: 1. T12 compression fracture. 2. Intractable pain. POSTOPERATIVE DIAGNOSES: 1. T12 compression fracture. 2. Intractable pain. PROCEDURE: 1. Kyphoplasty T12. 2. Use of fluoroscopy. ESTIMATED BLOOD LOSS: Zero. COMPLICATIONS: None. FINDINGS: Very, very soft bone. FLUIDS: 250 mL. INDICATIONS: The patient is an 89-year-old with fairly and severely intractable back pain, status post T12 compression fracture. In the past, she has had prior kyphoplasty at L2, L3 and L4, status post fracture with excellent results. She was inclined to have kyphoplasty based on her excellent response, which was performed two years ago. The patient was explained in detail risks and benefits of surgery to include, but not be limited to those of bleeding, infection, damage to nerves, tendons, anesthetic risk, allergic reaction, aspiration, possibly , specifically of cement extravasation was discussed. She elected to proceed. OPERATIVE PROCEDURE IN DETAIL: The patient was taken to the operating suite. After general endotracheal anesthesia was obtained, she was positioned supine onto a radiolucent Chandra table, bolsters under the abdomen and shoulders. Biplanar fluoroscopy was then brought into place. The entry portal of T12 was identified in both AP and lateral projection. The back was prepped and draped in usual sterile fashion. A 7 mL of lidocaine was injected into the incision sites. The right side was first incised. The trocar was delivered to the pedicle entry points and under AP projection, the . At this point, the trocar was delivered down the pedicle and verified under AP and lateral projection to be in good overall position. The bone was so soft that this could be delivered by hand without having to tap it into place. The hand drill was then used, which again the bone was so soft that just with gentle placement a track was made. The kyphoplasty balloon was then delivered. This procedure was then reproduced also on the left side. At this point, the balloons were inflated under fluoroscopic guidance to 2.5 to 3 mL of volume on each side. The cement was then delivered, a total of 2 mL, two on the right and two on the left. This was done under fluoroscopic guidance. After this cement was deployed on serial x-rays with cement expansion in situ, I then noted that some of the cement had extravasated on the right side, both superior and inferior to the pedicle. The midline was patent. We decided not to apply anymore cement at this point. We waited until the cement had hardened. The trocars were then serially removed. Dermabond was applied 2 x 2s and sterile dressing was applied. The patient was then awakened, turned onto her back, extubated, and transferred to recovery room in stable condition. [facility] Travis Howard DR: RONDA JOB#: [id number] CC:
--- NOTE | 2020-04-21 16:00 | NUR ---
NURSE NOTES: Patient returned from surgery at 1515, in no apparent distress, reporting no pain, surgical site dressing clean, dry, intact, on 2L NC. LFA IV removed in surgery and new IV placed on right wrist by anesthesiologist per report. Bed in lowest position, patient provided with call light.
--- NOTE | 2020-04-21 16:21 | Diagnostic Imaging Report ---
INDICATION: Pain, intraoperative TECHNIQUE: Intraoperative imaging Fluoroscopy time: 19.6 and 27.6 seconds Total dose: 0.56104 and 0.72169 mGym2 Total number of images: 8 COMPARISON: None FINDINGS: Intraoperative images document needle placement, balloon inflation, and contrast injection into the T12 vertebral body IMPRESSION: Intraoperative imaging, as described
--- NOTE | 2020-04-21 17:43 | NUR ---
NURSE NOTES: Per reese Bolivar to d/c IV fluids, order entered. Patient is awake and eating clear liquid diet, tolerating PO intake well.
[2020-04-21] MEDS ORDERED: Docusate 100mg cap ORAL SCH (18:00)
--- NOTE | 2020-04-21 19:32 | NUR ---
NURSE HAND-OFF: Important Events on Shift: kyphoplasty Patient Status: stable Diet: clear liquid Pending Orders: N/A Pending Results/Labs: N/A Pending MD notification: N/A Latest Vital Signs: Temperature 98.4 , Pulse 79 , B/P 135 /69 , Respiratory Rate 16 , O2 SAT 100 , Nasal Cannula. Vital Sign Comment: VS stable Latest Chase Fall Score: 60 Fall Risk: High Risk Safety Measures: Call light Within Reach, Bed Alarm Zone 1, Side Rails Side Rails x2, Bed position Low and Locked. Fall Precautions: Yellow Socks Yellow Gown Door Sign Patient Fall Education Report given to Nika GUEVARA.
--- NOTE | 2020-04-21 19:56 | NUR ---
NURSES NOTE: Report received from ISMAEL Isabel. Rounds made. Pt in bed, A/OX4, denies pain currently. No outward s/s of distress noted. Breathing pattern is even and unlabored on RA. R wrist IV hep locked. Dressing- 2x2, telfa located at mid back, is clean, dry and intact. Optifoam placed on sacral area and bilateral heels. Heels floating. All due medications will be administered. Bed at lowest level. Call light within reach. Pt will continue to be monitored.
[2020-04-21] MEDS: HYDROcodone/Acetamin 10/325 tab ORAL PRN (20:59)
--- NOTE | 2020-04-21 23:27 | Cardiology Progress Note ---
Subjective DATE OF SERVICE: Apr 21, 2020 S/p T12 kyphoplasty today; no intra-op complications noted. No SOB. BP trend remains stable. 2D Echo: normal LVEF, no significant valve abnormalities, no pulmonary hyper tension. EKG (04/20) Sinus rhythm with LAE; no significant abnormalities. Objective Last 24 Hour Vital Signs Date Time Temp Pulse Resp B/P (MAP) Pulse Ox O2 Delivery O2 Flow Rate FiO2 04/21/20 21:00 Room Air Room Air 04/21/20 19:19 79 135/69 (91) 04/21/20 16:00 98.4 81 16 133/63 (86) 100 04/21/20 15:35 78 16 131/62 (85) 99 04/21/20 15:10 98.2 75 18 134/67 100 Nasal Cannula 3 04/21/20 14:50 74 16 146/67 100 Nasal Cannula 3 04/21/20 14:48 73 18 98 04/21/20 14:35 79 17 126/87 100 Nasal Cannula 3 04/21/20 14:25 78 17 150/74 100 Simple Mask 6 04/21/20 14:15 82 17 183/73 100 Simple Mask 6 04/21/20 14:14 78 20 98 04/21/20 14:10 87 15 172/81 100 Simple Mask 6 04/21/20 14:06 97.2 91 12 182/85 100 Simple Mask 6 04/21/20 11:45 98.3 75 16 145/76 (99) 96 75 04/21/20 09:19 90 161/69 04/21/20 09:19 90 161/69 04/21/20 09:00 Room Air 04/21/20 08:00 98.0 90 16 161/69 (99) 97 90 04/21/20 04:00 97.5 62 18 151/68 (95) 97 74 04/20/20 23:55 98.2 74 18 158/75 (102) 96 74 ROS: unchanged from my initial evaluation HEENT: normal ENT inspection LUNGS: diminished breath sounds CARDIAC: normal rate, regular rhythm, normal S1 and S2, systolic murmur - 1/6 systolic murmur base ABDOMEN: normal bowel sounds, non tender, soft EXTREMITIES: no calf tenderness, No edema Assessment/Plan Assessment/Plan T12 compession fracture - s/p kyphoplasty Prior lumbar compression fx (2018) Hypertension with occasional BP spikes likely related to pain. Osteoporosis Degenerative valve disease Hyperlipidemia Stable for anesthesia from cardiovascular standpoint with no increased risks Pain control Titrate antiHTN meds as needed; avoid orthostasis potential. PRN meds for BP spikes. Ca++/Vit D suppl Add calcitonin nasal spray DVT prophylaxis Continue statin therapy Maintain beta blockade Elvin Carreno MD Apr 21, 2020 23:27
[2020-04-22] VITALS: BP 127/65
--- NOTE | 2020-04-22 00:34 | NUR ---
NURSE NOTES: Neuro checks completed. VS WNL. Pt stable.
[2020-04-22 04:00] VITALS: BP 133/57
--- NOTE | 2020-04-22 06:47 | NUR ---
NURSE HAND-OFF: Important Events on Shift:[Neuro checks completed. VS WNL] Patient Status: [STABLE] Diet: [CLEAR LIQUID] Pending Orders: [NONE] Pending Results/Labs:[NONE] Pending MD notification:[NONE] Latest Vital Signs: Temperature 97.9 , Pulse 73 , B/P 133 /57 , Respiratory Rate 18 , O2 SAT 96 , Room Air, O2 Flow Rate 3 . Vital Sign Comment: [WNL] Latest Chase Fall Score: 45 Fall Risk: High Risk Safety Measures: Call light Within Reach, Bed Alarm Zone 1, Side Rails Side Rails x2, Bed position Low and Locked. Fall Precautions: Yellow Socks Yellow Gown Door Sign Patient Fall Education Report given to [].
--- NOTE | 2020-04-22 07:22 | NUR ---
HAND OFF: Report given to ISMAEL Boyd.
--- NOTE | 2020-04-22 07:30 | NUR ---
NURSE NOTES: Patient is in bed awake and able to verbalize needs. Stable. Denies pain or SOB. Patient instructed to use call light for assistance, verbalized understanding. Dr. Corrigan is at bedside. Plan of care updated and discussed with patient .All safety measures provided. Patient is in bed in locked and lowest position with call light within reach. All needs met at this time. WIll continue to monitor.
[2020-04-22 08:00] VITALS: BP 151/65
[2020-04-22] MEDS: HYDROcodone/Acetamin 10/325 tab ORAL PRN ×2 (08:38→21:58)
[2020-04-22] MEDS: Calcium Carbonate 500mg w/Vit D 200iu tab ORAL SCH ×3 (08:38→17:31)
[2020-04-22] MEDS: Atenolol 25mg tab ORAL SCH (08:38)
[2020-04-22] MEDS: Docusate 250mg cap ORAL SCH ×2 (08:39→17:31)
--- NOTE | 2020-04-22 09:04 | General Progress Note ---
Subjective ROS Limited/Unobtainable: No Constitutional: Reports: malaise, weakness HEENT: Reports: no symptoms Cardiovascular: Reports: no symptoms Respiratory: Reports: no symptoms Gastrointestinal/Abdominal: Reports: no symptoms Genitourinary: Reports: no symptoms Neurologic/Psychiatric: Reports: no symptoms Endocrine: Reports: no symptoms Hematologic/Lymphatic: Reports: no symptoms Allergies: Coded Allergies: STRAWBERRY (Verified Allergy, Unknown, Rash, 08/29/18) All Systems: reviewed and negative except above Subjective s/p uncomplicated kyphoplasty. tolerating po- clears. pain controlled. Objective Last 24 Hour Vital Signs Date Time Temp Pulse Resp B/P (MAP) Pulse Ox O2 Delivery O2 Flow Rate FiO2 04/22/20 08:38 76 151/65 04/22/20 08:37 76 151/65 04/22/20 04:00 97.9 73 18 133/57 (82) 96 04/22/20 00:00 98.3 75 17 127/65 (85) 96 04/21/20 21:00 Room Air Room Air 04/21/20 20:00 98.3 74 18 131/60 (83) 96 04/21/20 19:19 79 135/69 (91) 04/21/20 16:00 98.4 81 16 133/63 (86) 100 04/21/20 15:35 78 16 131/62 (85) 99 04/21/20 15:10 98.2 75 18 134/67 100 Nasal Cannula 3 04/21/20 14:50 74 16 146/67 100 Nasal Cannula 3 04/21/20 14:48 73 18 98 04/21/20 14:35 79 17 126/87 100 Nasal Cannula 3 04/21/20 14:25 78 17 150/74 100 Simple Mask 6 04/21/20 14:15 82 17 183/73 100 Simple Mask 6 04/21/20 14:14 78 20 98 04/21/20 14:10 87 15 172/81 100 Simple Mask 6 04/21/20 14:06 97.2 91 12 182/85 100 Simple Mask 6 04/21/20 11:45 98.3 75 16 145/76 (99) 96 75 04/21/20 09:19 90 161/69 04/21/20 09:19 90 161/69 Intake and Output 04/21/20 04/22/20 19:00 07:00 Intake Total 1100 ml 240 ml Balance 1100 ml 240 ml Intake Oral 500 ml 240 ml IV Total 600 ml # Voids 1 2 Height (Feet): 5 Height (Inches): 3.00 Weight (Pounds): 100 Objective General Appearance: WD/WN, alert EENT: PERRL/EOMI, normal ENT inspection Neck: non-tender, normal alignment Cardiovascular: normal peripheral pulses, normal rate, regular rhythm Respiratory/Chest: chest wall non-tender, lungs clear, normal breath sounds Abdomen: normal bowel sounds, non tender, soft, no organomegaly Edema: no edema noted Arm (L), no edema noted Arm (R) 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
--- NOTE | 2020-04-22 10:51 | NUR ---
RD ASSESSMENT & RECOMMENDATIONS SEE CARE ACTIVITY FOR COMPLETE ASSESSMENT DAILY ESTIMATED NEEDS: Needs based on DTI, 45kg 30-35 kcals/kg 1357-8081 total kcals 1.25-1.5 g protein/kg 56-68 g total protein 25-30ml/kcal mL/kg 4267-2276 total fluid mLs NUTRITION DIAGNOSIS: Increased kcal and protein needs r/t skin breakdown as evidenced by pt w/ compression fracture, limited mobility, now w/ buttock. sacral DTI. CURRENT DIET: CLD PO DIET RECOMMENDATIONS: Advance as able-> SOFT DIET/ TEXTURE TOLERATED ADDITIONAL RECOMMENDATIONS: 1) Maintain a calibrated bed scale wt 2) Ensure Clear TID w/ CLD; Ensure Enlive (not strawberry) when advanced Prune Juice w/ all meals when diet is advanced 3) Monitor lytes daily, replete as needed 4) Added SIM BID to maintain skin integrity Continue MVI x 1 5) Updated chem panel as able; rec bed side BG checks
[2020-04-22 12:00] VITALS: BP 117/63
--- NOTE | 2020-04-22 12:31 | NUR ---
CASE MANAGEMENT:REVIEW SI;T12 COMPRESSION FRACTURE. HTN. POD #1 KYPHOPLASTY. 98.3 76 18 151/65 96% ON RA IS;NORCO PO Q4 PRN ATENOLOL PO QD NORVASC PO QD PEPCID PO QD MED SURG STATUS DCP;FROM HOME PLAN; PT EVAL DC PLAN PENDING PT RECOMMENDATION
--- NOTE | 2020-04-22 12:35 | NUR ---
NURSE NOTES: Patient encouraged to turn from side to side and reposition herself frequently. Patient informed of risks and benefits. Patient will not allow staff to reposition her, patient stated that she will reposition herself.
--- NOTE | 2020-04-22 12:58 | NUR ---
NURSE NOTES: Patient tolerated clear liquid diet, upgraded diet as ordered.
[2020-04-22 15:42] VITALS: BP 131/71
--- NOTE | 2020-04-22 17:27 | Cardiology Progress Note ---
Subjective DATE OF SERVICE: Apr 22, 2020 S/p T12 kyphoplasty yesterday; no intra-op complications noted. No SOB. BP trend remains stable. 2D Echo: normal LVEF, no significant valve abnormalities, no pulmonary h ypertension. EKG (04/20) Sinus rhythm with LAE; no significant abnormalities. Objective Last 24 Hour Vital Signs Date Time Temp Pulse Resp B/P (MAP) Pulse Ox O2 Delivery O2 Flow Rate FiO2 04/22/20 15:42 98.1 74 18 131/71 (91) 95 04/22/20 12:00 98.3 65 18 117/63 (81) 96 04/22/20 09:00 Room Air Room Air 04/22/20 08:38 76 151/65 04/22/20 08:37 76 151/65 04/22/20 08:00 97.9 76 18 151/65 (93) 96 04/22/20 04:00 97.9 73 18 133/57 (82) 96 04/22/20 00:00 98.3 75 17 127/65 (85) 96 04/21/20 21:00 Room Air Room Air 04/21/20 20:00 98.3 74 18 131/60 (83) 96 04/21/20 19:19 79 135/69 (91) ROS: unchanged from my initial evaluation HEENT: normal ENT inspection LUNGS: diminished breath sounds CARDIAC: normal rate, regular rhythm, normal S1 and S2, systolic murmur - 1/6 systolic murmur base ABDOMEN: normal bowel sounds, non tender, soft EXTREMITIES: no calf tenderness, No edema Assessment/Plan Assessment/Plan T12 compession fracture - s/p kyphoplasty Prior lumbar compression fx (2018) Hypertension with occasional BP spikes likely related to pain. Osteoporosis Degenerative valve disease Hyperlipidemia Pain control Titrate antiHTN meds as needed; avoid orthostasis potential. PRN meds for BP spikes. Ca++/Vit D suppl Add calcitonin nasal spray DVT prophylaxis Continue statin therapy Maintain beta blockade Recheck labs Elvin Carreno MD Apr 22, 2020 17:27
--- NOTE | 2020-04-22 19:26 | NUR ---
NURSE HAND-OFF: Important Events on Shift: OOB Patient Status: stable Diet: regular Pending Orders: n/a Pending Results/Labs:n/a Pending MD notification:n/a Latest Vital Signs: Temperature 98.1 , Pulse 74 , B/P 131 /71 , Respiratory Rate 18 , O2 SAT 95 , Room Air, O2 Flow Rate 3 . Vital Sign Comment: n/a Latest Chase Fall Score: 45 Fall Risk: High Risk Safety Measures: Call light Within Reach, Bed Alarm Zone 1, Side Rails Side Rails x2, Bed position Low and Locked. Fall Precautions: Yellow Socks Yellow Gown Door Sign Patient Fall Education Report given to Nika GUEVARA.
--- NOTE | 2020-04-22 19:35 | NUR ---
NURSES NOTE: Received report from ISMAEL Boyd. Rounds made. Pt A/OX4, sitting high fowlers. No c/o discomfort or pain at this time. No outward s/s of distress noted. Breathing pattern is even and unlabored on RA. Dressing mid back is clean dry and intact. Ice to be applied PRN. Pt to be turned Q2H. Optifoam placed at sacral area and bilateral heels. Bed at lowest level. Call light within reach. Bed at lowest level. Pt will continue to be monitored.
[2020-04-22 20:00] VITALS: BP 147/72
[2020-04-23 04:00] VITALS: BP 148/76
[2020-04-23 06:21] LABS: BASOPHILS % (AUTO) 1.5 % (0.0-2.0); EOSINOPHILS % (AUTO) 2.6 % (0.0-3.0); HEMATOCRIT 42.1 % (37.0-47.0); HEMOGLOBIN 13.5 G/DL (12.0-16.0); LYMPHOCYTES % (AUTO) 20.8 % (20.0-45.0); MEAN CORPUSCULAR VOLUME 93 FL (80-99); MONOCYTES % (AUTO) 11.5 % (1.0-10.0); NEUTROPHILS % (AUTO) 63.7 % (45.0-75.0); PLATELET COUNT 380 K/UL (150-450); RED BLOOD COUNT 4.52 M/UL (4.20-5.40); RED CELL DISTRIBUTION WIDTH 12.4 % (11.6-14.8); WHITE BLOOD COUNT 7.9 K/UL (4.8-10.8)
--- NOTE | 2020-04-23 06:28 | NUR ---
NURSE HAND-OFF: Important Events on Shift:[None] Patient Status: [stable] Diet: [regular] Pending Orders: [none] Pending Results/Labs:[none] Pending MD notification:[none] Latest Vital Signs: Temperature 98.3 , Pulse 65 , B/P 148 /76 , Respiratory Rate 18 , O2 SAT 97 , Room Air, O2 Flow Rate 3 . Vital Sign Comment: [wnl] Latest Chase Fall Score: 45 Fall Risk: High Risk Safety Measures: Call light Within Reach, Bed Alarm Zone 1, Side Rails Side Rails x2, Bed position Low and Locked. Fall Precautions: Yellow Socks Yellow Gown Door Sign Patient Fall Education Report given to [].
[2020-04-23 07:01] LABS: ALANINE AMINOTRANSFERASE 18 U/L (12-78); ALBUMIN 2.9 G/DL (3.4-5.0); ALBUMIN/GLOBULIN RATIO 0.7 (1.0-2.7); ALKALINE PHOSPHATASE 91 U/L (46-116); ANION GAP 7 mmol/L (5-15); ASPARTATE AMINO TRANSFERASE 21 U/L (15-37); BILIRUBIN,TOTAL 0.5 MG/DL (0.2-1.0); BLOOD UREA NITROGEN 15 mg/dL (7-18); CALCIUM 8.7 MG/DL (8.5-10.1); CARBON DIOXIDE 28 MMOL/L (21-32); CHLORIDE 105 MMOL/L (98-107); CREATININE 0.8 MG/DL (0.55-1.30); POTASSIUM 3.6 MMOL/L (3.5-5.1); SODIUM 140 MMOL/L (136-145)
--- NOTE | 2020-04-23 07:28 | NUR ---
HAND OFF: Report given to ISMAEL Ruiz. Pt refused to be turned NOC shift.
--- NOTE | 2020-04-23 07:47 | NUR ---
NURSE NOTES: WALKING ROUNDS DONE WITH OUTGOING RN. PATIENT AWAKE IN BED. QUESTIONS ANSWERED, NEEDS MET PATIENT ABLE TO ROLL SIDE TO SIDE. LUMBAR DRSGS C/D/I. SACRAL OPTIFOAM C/D/I. DENIES PAIN. BED IN LOW AND LOCKED POSITION. PERSONAL ITEMS AND CALL LIGHT WITHIN REACH.
[2020-04-23 08:00] VITALS: BP 156/60
--- NOTE | 2020-04-23 08:14 | General Progress Note ---
Subjective ROS Limited/Unobtainable: No Constitutional: Reports: malaise, weakness HEENT: Reports: no symptoms Cardiovascular: Reports: no symptoms Respiratory: Reports: no symptoms Gastrointestinal/Abdominal: Reports: no symptoms Genitourinary: Reports: no symptoms Neurologic/Psychiatric: Reports: no symptoms Endocrine: Reports: no symptoms Hematologic/Lymphatic: Reports: no symptoms Allergies: Coded Allergies: STRAWBERRY (Verified Allergy, Unknown, Rash, 08/29/18) All Systems: reviewed and negative except above Subjective s/p uncomplicated kyphoplasty. tolerating po. decreased back pain. seen by therapy. prefer to go home. Objective Last 24 Hour Vital Signs Date Time Temp Pulse Resp B/P (MAP) Pulse Ox O2 Delivery O2 Flow Rate FiO2 04/23/20 04:00 98.3 65 18 148/76 (100) 97 04/22/20 21:00 Room Air Room Air 04/22/20 20:00 98.9 62 17 147/72 (97) 97 04/22/20 15:42 98.1 74 18 131/71 (91) 95 04/22/20 12:00 98.3 65 18 117/63 (81) 96 04/22/20 09:00 Room Air Room Air 04/22/20 08:38 76 151/65 04/22/20 08:37 76 151/65 Intake and Output 04/22/20 04/23/20 19:00 07:00 Intake Total 500 ml 240 ml Balance 500 ml 240 ml Intake Oral 500 ml 240 ml # Voids 2 2 # Bowel Movements 1 Laboratory Tests 04/23/20 04:55: White Blood Count 7.9, Red Blood Count 4.52, Hemoglobin 13.5, Hematocrit 42.1, Mean Corpuscular Volume 93, Mean Corpuscular Hemoglobin 29.9, Mean Corpuscular Hemoglobin Concent 32.1, Red Cell Distribution Width 12.4, Platelet Count 380, Mean Platelet Volume 5.5L, Neutrophils (%) (Auto) 63.7, Lymphocytes (%) (Auto) 20.8, Monocytes (%) (Auto) 11.5H, Eosinophils (%) (Auto) 2.6, Basophils (%) (Aut o) 1.5, Sodium Level 140, Potassium Level 3.6, Chloride Level 105, Carbon Dioxide Level 28, Anion Gap 7, Blood Urea Nitrogen 15, Creatinine 0.8, Estimat Glomerular Filtration Rate > 60, Glucose Level 80, Calcium Level 8.7, Magnesium Level 1.9, Total Bilirubin 0.5, Aspartate Amino Transf (AST/SGOT) 21, Alanine Aminotransferase (ALT/SGPT) 18, Alkaline Phosphatase 91, Pro-B-Type Natriuretic Peptide 435H, Total Protein 6.8, Albumin 2.9L, Globulin 3.9, Albumin/Globulin Ratio 0.7L Height (Feet): 5 Height (Inches): 3.00 Weight (Pounds): 100 Objective General Appearance: WD/WN, alert EENT: PERRL/EOMI, normal ENT inspection Neck: non-tender, normal alignment Cardiovascular: normal peripheral pulses, normal rate, regular rhythm Respiratory/Chest: chest wall non-tender, lungs clear, normal breath sounds Abdomen: normal bowel sounds, non tender, soft, no organomegaly Edema: no edema noted Arm (L), no edema noted Arm (R) 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
[2020-04-23] MEDS: Docusate 250mg cap ORAL SCH ×2 (09:14→18:19)
[2020-04-23] MEDS: Atenolol 25mg tab ORAL SCH (09:14)
[2020-04-23] MEDS: Calcium Carbonate 500mg w/Vit D 200iu tab ORAL SCH ×3 (09:15→18:19)
[2020-04-23 11:47] VITALS: BP 119/68
--- NOTE | 2020-04-23 12:08 | NUR ---
NURSE NOTES: REFUSAL TO TURN Q2H. DISCUSSED WITH PATIENT AT BEGINNING OF SHIFT, ENCOURAGED, INSTRUCTED AND OFFERED ASSISTANCE TO TURN Q2H. PATIENT DECLINES TO DO OR BE ASSISTED WELL. STATES SHE IS OK IN THIS POSITION; SUPINE. EXPLAINED RISK FACTORS OF INCREASED POOR CIRCULATION AND POOR SKIN INTEGRITY. PATIENT UNDERSTANDS BUT STATES SHE WILL WAIT FOR PHYSICAL THERAPY TO MOVE, STAND AND AMBULATE TODAY. INFORMED PATIENT P.T. IS NOT ON DUTY TODAY. WILL REATTEMPT THROUGH OUT SHIFT TO TURN Q2H. BED IN LOW AND LOCKED POSITION. PERSONAL ITEMS AND CALL LIGHT WITHIN REACH.
--- NOTE | 2020-04-23 15:25 | Cardiology Progress Note ---
Subjective DATE OF SERVICE: Apr 23, 2020 S/p T12 kyphoplasty; no intra-op complications noted. No SOB. BP trend remains stable. 2D Echo: normal LVEF, no significant valve abnormalities, no pulmonary hypertension. EKG (04/20) Sinus rhythm with LAE; no significant abnormalities. Objective Last 24 Hour Vital Signs Date Time Temp Pulse Resp B/P (MAP) Pulse Ox O2 Delivery O2 Flow Rate FiO2 04/23/20 11:47 97.6 62 18 119/68 (85) 95 04/23/20 09:14 66 156/60 04/23/20 09:14 66 156/60 04/23/20 09:00 Room Air 04/23/20 08:00 99.1 66 20 156/60 (92) 96 04/23/20 04:00 98.3 65 18 148/76 (100) 97 04/22/20 21:00 Room Air Room Air 04/22/20 20:00 98.9 62 17 147/72 (97) 97 04/22/20 15:42 98.1 74 18 131/71 (91) 95 ROS: unchanged from my initial evaluation HEENT: normal ENT inspection LUNGS: diminished breath sounds CARDIAC: normal rate, regular rhythm, normal S1 and S2, systolic murmur - 1/6 systolic murmur base ABDOMEN: normal bowel sounds, non tender, soft EXTREMITIES: no calf tenderness, No edema Laboratory Tests Test 04/23/20 04:55 White Blood Count 7.9 K/UL (4.8-10.8) Red Blood Count 4.52 M/UL (4.20-5.40) Hemoglobin 13.5 G/DL (12.0-16.0) Hematocrit 42.1 % (37.0-47.0) Mean Corpuscular Volume 93 FL (80-99) Mean Corpuscular Hemoglobin 29.9 PG (27.0-31.0) Mean Corpuscular Hemoglobin Concent 32.1 G/DL (32.0-36.0) Red Cell Distribution Width 12.4 % (11.6-14.8) Platelet Count 380 K/UL (150-450) Mean Platelet Volume 5.5 FL (6.5-10.1) L Neutrophils (%) (Auto) 63.7 % (45.0-75.0) Lymphocytes (%) (Auto) 20.8 % (20.0-45.0) Monocytes (%) (Auto) 11.5 % (1.0-10.0) H Eosinophils (%) (Auto) 2.6 % (0.0-3.0) Basophils (%) (Auto) 1.5 % (0.0-2.0) Sodium Level 140 MMOL/L (136-145) Potassium Level 3.6 MMOL/L (3.5-5.1) Chloride Level 105 MMOL/L (98-107) Carbon Dioxide Level 28 MMOL/L (21-32) Anion Gap 7 mmol/L (5-15) Blood Urea Nitrogen 15 mg/dL (7-18) Creatinine 0.8 MG/DL (0.55-1.30) Estimat Glomerular Filtration Rate > 60 mL/min (>60) Glucose Level 80 MG/DL (74-106) Calcium Level 8.7 MG/DL (8.5-10.1) Magnesium Level 1.9 MG/DL (1.8-2.4) Total Bilirubin 0.5 MG/DL (0.2-1.0) Aspartate Amino Transf (AST/SGOT) 21 U/L (15-37) Alanine Aminotransferase (ALT/SGPT) 18 U/L (12-78) Alkaline Phosphatase 91 U/L (46-116) Pro-B-Type Natriuretic Peptide 435 pg/mL (0-125) H Total Protein 6.8 G/DL (6.4-8.2) Albumin 2.9 G/DL (3.4-5.0) L Globulin 3.9 g/dL Albumin/Globulin Ratio 0.7 (1.0-2.7) L Assessment/Plan Assessment/Plan T12 compession fracture - s/p kyphoplasty Prior lumbar compression fx (2019) Hypertension with occasional BP spikes likely related to pain. Osteoporosis Degenerative valve disease Hyperlipidemia Vitamin D def Mod protein/calorie malnutrition Pain control Titrate antiHTN meds as needed; avoid orthostasis potential. PRN meds for BP spikes. Ca++/Vit D suppl Add calcitonin nasal spray DVT prophylaxis Continue statin therapy Maintain beta blockade Protein suppl Elvin Carreno MD Apr 23, 2020 15:25
[2020-04-23 16:00] VITALS: BP 149/67
[2020-04-23] MEDS: Vitamin D 1000 IU Tab ORAL SCH (16:21)
[2020-04-23] MEDS: HYDROcodone/Acetamin 10/325 tab ORAL PRN (18:22)
--- NOTE | 2020-04-23 18:40 | NUR ---
NURSE NOTES: PATIENT REMAINS AND STABLE. STILL REFUSES TO TURN Q2H. REMINDED PATIENT OF RISK FACTORS INVOLVED WITH LIMITED MOVEMENT AND CIRCULATION. PATIENT AWARE OF DECUB TO SACRAL AREA. STATES SHE DOES NOT CARE BOUT THAT ONLY ABOUT HER SURGICAL BACK SITE. SCDS ON. PATIENT ENCOURAGED TO CONTINUE TO USE INCENTIVE SPIROMETRY TO INCREASE LUNG EXPANSION. RETURN DEMONSTRATION VERY GOOD. BED IN LOW AND LOCKED POSITION. PERSONAL ITEMS AND CALL LIGHT WITHIN REACH.
--- NOTE | 2020-04-23 19:19 | NUR ---
NURSE HAND-OFF: Important Events on Shift: PATIENT REFUSES TO TURN Q2H, HAS SACRAL WOUND Patient Status: STABLE Diet: REGULAR Pending Orders: NA Pending Results/Labs:NA Pending MD notification:N/A Latest Vital Signs: Temperature 99.2 , Pulse 67 , B/P 149 /67 , Respiratory Rate 21 , O2 SAT 97 , Room Air . Vital Sign Comment: ENCOURAGED TO DO INCENTIVE SPIROMTERY C/D/B. Latest Chase Fall Score: 85 Fall Risk: High Risk Safety Measures: Call light Within Reach, Bed Alarm Zone 1, Side Rails Side Rails x2, Bed position Low and Locked. Fall Precautions: Yellow Socks Yellow Gown Door Sign Patient Fall Education Report given to JUAN MIGUEL LOGAN RN..
[2020-04-23 19:40] VITALS: BP 116/62
[2020-04-24 00:01] VITALS: BP 135/62
--- NOTE | 2020-04-24 06:39 | NUR ---
NURSE HAND-OFF: Important Events on Shift:able to turn when assisted to bed cancino & being pulled up to bed Patient Status: stable Diet: regular Pending Orders: none Pending Results/Labs:none Pending MD notification:none Latest Vital Signs: Temperature 98.1 , Pulse 64 , B/P 135 /62 , Respiratory Rate 16 , O2 SAT 95 , Room Air, O2 Flow Rate 3 . Vital Sign Comment: none Latest Chase Fall Score: 85 Fall Risk: High Risk Safety Measures: Call light Within Reach, Bed Alarm Zone 1, Side Rails Side Rails x2, Bed position Low and Locked. Fall Precautions: Yellow Socks Yellow Gown Door Sign Patient Fall Education Report will be given to, ISMAEL Robles.
--- NOTE | 2020-04-24 07:00 | NUR ---
NURSE NOTES: Received report from ISMAEL Rivera. Rounding done with outgoing nurse. Pt a/o x 4, having breakfast. Pt denies any pain at this time. NO IV access. SCD is on. Back site dressing is dry/intact. Bed in lowest position, call light within reach. Will continue to monitor.
[2020-04-24 08:00] VITALS: BP 127/73
[2020-04-24] MEDS: Docusate 250mg cap ORAL SCH ×2 (08:27→17:27)
[2020-04-24] MEDS: Atenolol 25mg tab ORAL SCH (08:28)
[2020-04-24] MEDS: Calcium Carbonate 500mg w/Vit D 200iu tab ORAL SCH ×3 (08:28→17:27)
[2020-04-24] MEDS: Vitamin D 1000 IU Tab ORAL SCH (08:28)
[2020-04-24] MEDS: HYDROcodone/Acetamin 10/325 tab ORAL PRN ×2 (09:13→22:37)
[2020-04-24 12:00] VITALS: BP 125/60
--- NOTE | 2020-04-24 12:48 | NUR ---
CASE MANAGEMENT:REVIEW SI;POD #4 KYPHOPLASTY 99.2 58 16 127/73 96% ON RA IS;NORCO PO Q4 PRN NORVASC PO QD ATENOLOL PO QD PEPCID PO QD MED SURG STATUS DCP;FROM HOME PLAN; HOME WITH HOME HEALTH VS SNF
--- NOTE | 2020-04-24 15:10 | NUR ---
DISCHARGE PLANNING FOLLOW UP WITH DR SANDOVAL IN RE TO DC PLAN. PER MD, PATIENT NEEDS SNF PLACEMENT. GAVE ORDER TO REFER TO [facility]. NOTED AND CARRIED OUT. CM S/W PATIENT AT BEDSIDE IN RE TO SNF PLACEMENT. PATIENT AAO X4. ABLE TO VERBALIZE NEEDS AND AGREES WITH PLACEMENT AT THIS TIME. PATIENT HAS BEEN REFERRED TO [facility] P [phone] F [phone]
--- NOTE | 2020-04-24 15:45 | General Progress Note ---
Subjective ROS Limited/Unobtainable: No Constitutional: Reports: malaise, weakness HEENT: Reports: no symptoms Cardiovascular: Reports: no symptoms Respiratory: Reports: no symptoms Gastrointestinal/Abdominal: Reports: no symptoms Genitourinary: Reports: no symptoms Neurologic/Psychiatric: Reports: no symptoms Endocrine: Reports: no symptoms Hematologic/Lymphatic: Reports: no symptoms Allergies: Coded Allergies: STRAWBERRY (Verified Allergy, Unknown, Rash, 08/29/18) All Systems: reviewed and negative except above Subjective c/o lower back pain. no dysuria. denies constipation. per therapy- snf recommended. Objective Last 24 Hour Vital Signs Date Time Temp Pulse Resp B/P (MAP) Pulse Ox O2 Delivery O2 Flow Rate FiO2 04/24/20 12:00 98.3 58 16 125/60 (81) 97 04/24/20 09:00 Room Air 04/24/20 08:28 81 127/73 04/24/20 08:27 81 127/73 04/24/20 08:00 98.1 81 16 127/73 (91) 96 04/24/20 00:01 98.1 64 16 135/62 (86) 95 04/23/20 20:52 Room Air 04/23/20 19:40 98.4 61 16 116/62 (80) 95 04/23/20 18:52 99.2 04/23/20 16:00 99.2 67 21 149/67 (94) 97 Intake and Output 04/23/20 04/24/20 19:00 07:00 Intake Total 780 ml 480 ml Balance 780 ml 480 ml Intake Oral 780 ml 480 ml # Voids 4 3 Height (Feet): 5 Height (Inches): 3.00 Weight (Pounds): 100 Objective General Appearance: WD/WN, alert EENT: PERRL/EOMI, normal ENT inspection Neck: non-tender, normal alignment Cardiovascular: normal peripheral pulses, normal rate, regular rhythm Respiratory/Chest: chest wall non-tender, lungs clear, normal breath sounds Abdomen: normal bowel sounds, non tender, soft, no organomegaly Edema: no edema noted Arm (L), no edema noted Arm (R) 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
--- NOTE | 2020-04-24 15:55 | Cardiology Progress Note ---
Subjective DATE OF SERVICE: Apr 24, 2020 S/p T12 kyphoplasty 04/21; no intra-op complications noted. No SOB. BP trend remains stable. Still needs assist with mobility/care - considering SNF 2D Echo: normal LVEF, no significant valve abnormalities, no pulmonary hypertension. EKG (04/20) Sinus rhythm with LAE; no significant abnormalities. Objective Last 24 Hour Vital Signs Date Time Temp Pulse Resp B/P (MAP) Pulse Ox O2 Delivery O2 Flow Rate FiO2 04/24/20 12:00 98.3 58 16 125/60 (81) 97 04/24/20 09:00 Room Air 04/24/20 08:28 81 127/73 04/24/20 08:27 81 127/73 04/24/20 08:00 98.1 81 16 127/73 (91) 96 04/24/20 00:01 98.1 64 16 135/62 (86) 95 04/23/20 20:52 Room Air 04/23/20 19:40 98.4 61 16 116/62 (80) 95 04/23/20 18:52 99.2 04/23/20 16:00 99.2 67 21 149/67 (94) 97 ROS: unchanged from my initial evaluation HEENT: normal ENT inspection LUNGS: diminished breath sounds CARDIAC: normal rate, regular rhythm, normal S1 and S2, systolic murmur - 1/6 systolic murmur base ABDOMEN: normal bowel sounds, non tender, soft EXTREMITIES: no calf tenderness, No edema Assessment/Plan Assessment/Plan T12 compession fracture - s/p kyphoplasty Prior lumbar compression fx (2018) Hypertension with occasional BP spikes likely related to pain. Osteoporosis Degenerative valve disease Hyperlipidemia Pain control Titrate antiHTN meds as needed; avoid orthostasis potential. PRN meds for BP spikes. Ca++/Vit D suppl Add calcitonin nasal spray DVT prophylaxis Continue statin therapy Maintain beta blockade PT/OT and discharge planning Elvin Carreno MD Apr 24, 2020 15:55
[2020-04-24 16:00] VITALS: BP 131/73
--- NOTE | 2020-04-24 16:14 | NUR ---
DISCHARGE PLANNING S/W LIANA AT [facility]. NO FEMALE BEDS AVAILABLE OF TODAY. PER LIANA, A BED WILL BE AVAILABLE AT THEIR SISTER FACILITY [facility] ON 04/25/20. PATIENT HAS ALSO BEEN REFERRED TO [facility] P [phone] F [phone] [facility] P [phone] F [phone] [facility] P [phone]
[2020-04-24 18:14] LABS: APPEARANCE,URINE CLOUDY; BILIRUBIN, URINE NEGATIVE (NEGATIVE); GLUCOSE, URINE (UA) NEGATIVE (NEGATIVE); KETONES,URINE 2+ (NEGATIVE); LEUKOCYTE ESTERASE ,URINE NEGATIVE (NEGATIVE); NITRITE,URINE NEGATIVE (NEGATIVE); PH,URINE 7 (4.5-8.0); PROTEIN,URINE NEGATIVE (NEGATIVE); UROBILINOGEN,URINE NORMAL MG/DL (0.0-1.0)
--- NOTE | 2020-04-24 18:32 | NUR ---
NURSE HAND-OFF: Important Events on Shift: D/C plan for going to [facility] Patient Status: stable Diet: regular Pending Orders: n/a Pending Results/Labs:urinalysis reflex microscopy Pending MD notification:n/a Latest Vital Signs: Temperature 99.1 , Pulse 69 , B/P 131 /73 , Respiratory Rate 16 , O2 SAT 97 , Room Air, O2 Flow Rate 3 . Vital Sign Comment: stable Latest Chase Fall Score: 40 Fall Risk: Medium Risk Safety Measures: Call light Within Reach, Bed Alarm Zone 1, Side Rails Side Rails x2, Bed position Low and Locked. Fall Precautions: Yellow Socks Yellow Gown Door Sign Patient Fall Education Report given to ISMAEL Rivera.
[2020-04-24 18:39] LABS: COLOR,URINE YELLOW
--- NOTE | 2020-04-24 19:30 | NUR ---
NURSE NOTES: Received report & pt from ISMAEL Robles. Pt in bed, a&ox4, in room air. No s/s of acute distress & no c/o pain at this time. Dressing C/D/I. No IV access noted. Plan of care discussed.
[2020-04-24 20:00] VITALS: BP 142/60
[2020-04-24 23:20] VITALS: BP 122/60
--- NOTE | 2020-04-25 01:21 | NUR ---
NURSE NOTES: Pt asleep. In no acute distress. Breathing unlabored.
--- NOTE | 2020-04-25 07:31 | NUR ---
NURSE HAND-OFF: Important Events on Shift:pain management, DCP today ([facility] [place]) Patient Status: stable Diet: regular Pending Orders: none Pending Results/Labs:none Pending MD notification:none Latest Vital Signs: Temperature 98.0 , Pulse 65 , B/P 122 /60 , Respiratory Rate 18 , O2 SAT 96 , Room Air, O2 Flow Rate 3 . Vital Sign Comment: none Latest Chase Fall Score: 40 Fall Risk: Medium Risk Safety Measures: Call light Within Reach, Bed Alarm Zone 1, Side Rails Side Rails x2, Bed position Low and Locked. Fall Precautions: Yellow Socks Yellow Gown Door Sign Patient Fall Education Report given to ISMAEL Isabel/Elvin GUEVARA.
--- NOTE | 2020-04-25 07:34 | NUR ---
Received report from ISMAEL Rivera. Pt in bed, a&o x4, sitting up in bed, on room air. Pt eating breakfast with no s/s of distress. Pt aware of plan for discharge. Addendum: 04/25/20 at 0754 by Elvin Thomas RN Add Bed in lowest position, side rails up x2, call light within reach. Pt has no IV access. Will continue to monitor.
[2020-04-25 07:54] VITALS: BP 128/75
[2020-04-25] MEDS: Docusate 250mg cap ORAL SCH ×2 (09:05→17:37)
[2020-04-25] MEDS: Atenolol 25mg tab ORAL SCH (09:06)
[2020-04-25] MEDS: Calcium Carbonate 500mg w/Vit D 200iu tab ORAL SCH ×3 (09:06→17:37)
[2020-04-25] MEDS: Vitamin D 1000 IU Tab ORAL SCH (09:06)
[2020-04-25 12:00] VITALS: BP 135/59
--- NOTE | 2020-04-25 12:58 | General Progress Note ---
Subjective ROS Limited/Unobtainable: No Constitutional: Reports: malaise, weakness HEENT: Reports: no symptoms Cardiovascular: Reports: no symptoms Respiratory: Reports: no symptoms Gastrointestinal/Abdominal: Reports: no symptoms Genitourinary: Reports: no symptoms Neurologic/Psychiatric: Reports: no symptoms Endocrine: Reports: no symptoms Hematologic/Lymphatic: Reports: anemia Allergies: Coded Allergies: STRAWBERRY (Verified Allergy, Unknown, Rash, 08/29/18) Subjective c/o lower back pain. no dysuria. denies constipation. per therapy- snf recommended. Objective Last 24 Hour Vital Signs Date Time Temp Pulse Resp B/P (MAP) Pulse Ox O2 Delivery O2 Flow Rate FiO2 04/25/20 12:00 98.0 66 16 135/59 (84) 97 04/25/20 09:06 66 128/75 04/25/20 09:06 66 128/75 04/25/20 09:00 Room Air 04/25/20 07:54 98.3 66 18 128/75 (92) 97 04/24/20 23:20 98.0 65 18 122/60 (80) 96 04/24/20 21:40 Room Air 04/24/20 20:00 98.7 61 16 142/60 (87) 96 04/24/20 16:00 99.1 69 16 131/73 (92) 97 Intake and Output 04/24/20 04/25/20 19:00 07:00 Intake Total 500 ml 120 ml Balance 500 ml 120 ml Intake Oral 500 ml 120 ml # Voids 2 1 Laboratory Tests 04/24/20 18:00: Urine Color Yellow, Urine Appearance Cloudy, Urine pH 7, Urine Specific [place] 1.015, Urine Protein Negative, Urine Glucose (UA) Negative, Urine Ketones 2+H, Urine Blood Negative, Urine Nitrite Negative, Urine Bilirubin Negative, Urine Urobilinogen Normal, Urine Leukocyte Esterase Negative Height (Feet): 5 Height (Inches): 3.00 Weight (Pounds): 100 Objective General Appearance: WD/WN, alert EENT: PERRL/EOMI, normal ENT inspection Neck: non-tender, normal alignment Cardiovascular: normal peripheral pulses, normal rate, regular rhythm Respiratory/Chest: chest wall non-tender, lungs clear, normal breath sounds Abdomen: normal bowel sounds, non tender, soft, no organomegaly Edema: no edema noted Arm (L), no edema noted Arm (R) Neurologic: eyewear consultant II-XII grossly normal, alert, oriented x 3 Skin: normal pigmentation Assessment/Plan Problem List: (1) T12 compression fracture ICD Codes: S22.080A - Wedge compression fracture of T11-T12 vertebra, initial encounter for closed fracture SNOMED: 758126029 Status: stable, progressing Assessment/Plan: pt/ot pain rx bowel regime pt prefers to go home requesting prior snf - [facility] if home not a option check labs Nelson Corrigan MD Apr 25, 2020 12:58
--- NOTE | 2020-04-25 14:39 | NUR ---
*-*DISCHARGE PLANNED*-* PATIENT HAS BEEN ACCEPTED AND WILL BE DISCHARGED TO: [facility] P: [phone] FOR NURSE TO NURSE REPORT ROOM# 114.B [facility] SET FOR 4:30PM S/W ELLYN [id number]. S/W PATIENTS SON KELLI MILIAN, WHO IS IN AGREEMENT WITH DISCHARGE PLAN.
[2020-04-25] MEDS ORDERED: MOM30 ML ORAL (14:49)
[2020-04-25] MEDS ORDERED: NORVASC5 MG ORAL (14:49)
[2020-04-25] MEDS ORDERED: FAMOTIDINE20 MG ORAL (14:49)
[2020-04-25] MEDS ORDERED: MIRALAX119 GM ORAL (14:49)
[2020-04-25] MEDS ORDERED: HYDRALAZINE HCL25 M1 ORAL (14:49)
[2020-04-25] MEDS ORDERED: ATENOLOL25 MG ORAL (14:49)
[2020-04-25] MEDS ORDERED: CALCITONIN-SAL3.7 ML NASAL (14:49)
[2020-04-25] MEDS ORDERED: DULCOLAX10 MG RECTAL (14:49)
[2020-04-25] MEDS ORDERED: NORCO 10-325 T1 EACH ORAL (14:49)
[2020-04-25] MEDS ORDERED: ACETAMINOPHEN325 M1 ORAL (14:49)
[2020-04-25] MEDS ORDERED: OSCAL D500 MG ORAL (14:49)
[2020-04-25] MEDS ORDERED: VITAMIN D325 MCG ORAL (14:49)
[2020-04-25] MEDS ORDERED: RESTORIL15 MG ORAL (14:49)
--- NOTE | 2020-04-25 15:48 | NUR ---
*-*DISCHARGE PLANNING*-* PATIENT HAS BEEN REFERRED TO: [facility] P: [phone] S/W NURSE SAND FILLER NIGEL, STATED THEY CAN ACCEPT THIS PATIENT TO ROOM# 114.B. RECEIVED A CALL FROM ADMISSION SAND FILLER, RUBEN, WHO STATED THEY CANNOT ACCEPT PATIENT UNTIL RECEIVED AUTHORIZATION FROM INSURANCE, WILLING TO ACCEPT PATIENT MONDAY.
--- NOTE | 2020-04-25 15:54 | Cardiology Progress Note ---
Subjective DATE OF SERVICE: Apr 25, 2020 S/p T12 kyphoplasty 04/21; no intra-op complications noted. No SOB. BP trend remains stable. Still needs assist with mobility/care - considering SNF On vitamin supplements due to deficiencies. 2D Echo: normal LVEF, no significant valve abnormalities, no pulmonary hypertension. EKG (04/20) Sinus rhythm with LAE; no significant abnormalities. Objective Last 24 Hour Vital Signs Date Time Temp Pulse Resp B/P (MAP) Pulse Ox O2 Delivery O2 Flow Rate FiO2 04/25/20 12:00 98.0 66 16 135/59 (84) 97 04/25/20 09:06 66 128/75 04/25/20 09:06 66 128/75 04/25/20 09:00 Room Air 04/25/20 07:54 98.3 66 18 128/75 (92) 97 04/24/20 23:20 98.0 65 18 122/60 (80) 96 04/24/20 21:40 Room Air 04/24/20 20:00 98.7 61 16 142/60 (87) 96 04/24/20 16:00 99.1 69 16 131/73 (92) 97 ROS: unchanged from my initial evaluation HEENT: normal ENT inspection LUNGS: diminished breath sounds CARDIAC: normal rate, regular rhythm, normal S1 and S2, systolic murmur - 1/6 systolic murmur base ABDOMEN: normal bowel sounds, non tender, soft EXTREMITIES: no calf tenderness, No edema Laboratory Tests Test 04/24/20 18:00 Urine Color Yellow Urine Appearance Cloudy Urine pH 7 (4.5-8.0) Urine Specific [place] 1.015 (1.005-1.035) Urine Protein Negative (NEGATIVE) Urine Glucose (UA) Negative (NEGATIVE) Urine Ketones 2+ (NEGATIVE) H Urine Blood Negative (NEGATIVE) Urine Nitrite Negative (NEGATIVE) Urine Bilirubin Negative (NEGATIVE) Urine Urobilinogen Normal MG/DL (0.0-1.0) Urine Leukocyte Esterase Negative (NEGATIVE) Assessment/Plan Assessment/Plan T12 compession fracture - s/p kyphoplasty Prior lumbar compression fx (2018) Hypertension with occasional BP spikes likely related to pain. Osteoporosis Degenerative valve disease Hyperlipidemia Chronic diastolic CHF Pain control Titrate antiHTN meds as needed; avoid orthostasis potential. PRN meds for BP spikes. Ca++/Vit D suppl Add calcitonin nasal spray DVT prophylaxis Continue statin therapy Monitor volume status; trend BNP and reassess for diuresis. Maintain beta blockade PT/OT and discharge planning Elvin Carreno MD Apr 25, 2020 15:54
[2020-04-25 16:00] VITALS: BP 131/72
--- NOTE | 2020-04-25 19:30 | NUR ---
NURSE HAND-OFF: Important Events on Shift: Ambulated with PT, wound care done along with photos taken. Patient Status: Diet: Pending Orders: Pending Results/Labs: Pending MD notification: Latest Vital Signs: Temperature 98.1 , Pulse 72 , B/P 131 /72 , Respiratory Rate 16 , O2 SAT 97 , Room Air. Vital Sign Comment: Latest Chase Fall Score: 65 Fall Risk: High Risk Safety Measures: Call light Within Reach, Bed Alarm Zone 1, Side Rails Side Rails x2, Bed position Low and Locked. Fall Precautions: Yellow Socks Yellow Gown Door Sign Patient Fall Education Report given to . Addendum: 04/25/20 at 1937 by Elvin Thomas RN Add Report given to ISMAEL Watson.
--- NOTE | 2020-04-25 19:30 | NUR ---
Received patient alert and oriented, denies any pain or discomfort.
[2020-04-25 19:51] VITALS: BP 127/70
[2020-04-25 23:23] VITALS: BP_SYST 127; BP_SYST 130; BP_DIAS 64; BP_DIAS 70
[2020-04-26 04:00] VITALS: BP_SYST 125; BP_SYST 127; BP_DIAS 67; BP_DIAS 70
[2020-04-26 05:55] LABS: BASOPHILS % (AUTO) 1.5 % (0.0-2.0); EOSINOPHILS % (AUTO) 1.9 % (0.0-3.0); HEMATOCRIT 43.4 % (37.0-47.0); HEMOGLOBIN 14.9 G/DL (12.0-16.0); LYMPHOCYTES % (AUTO) 20.4 % (20.0-45.0); MEAN CORPUSCULAR VOLUME 85 FL (80-99); MONOCYTES % (AUTO) 8.5 % (1.0-10.0); NEUTROPHILS % (AUTO) 67.7 % (45.0-75.0); PLATELET COUNT 432 K/UL (150-450); RED BLOOD COUNT 5.11 M/UL (4.20-5.40); WHITE BLOOD COUNT 7.1 K/UL (4.8-10.8)
[2020-04-26 06:06] LABS: ALBUMIN 3.3 G/DL (3.4-5.0); ALBUMIN/GLOBULIN RATIO 0.8 (1.0-2.7); BILIRUBIN,TOTAL 0.4 MG/DL (0.2-1.0); CALCIUM 9.5 MG/DL (8.5-10.1); CREATININE 0.9 MG/DL (0.55-1.30); POTASSIUM 4.1 MMOL/L (3.5-5.1)
--- NOTE | 2020-04-26 06:20 | NUR ---
NURSE HAND-OFF: Important Events on Shift:[]Patient slept good thru the night, no distress. Possible discharge to SNF when bed is available Patient Status: [] stable Diet: []Regular Pending Orders: [] none Pending Results/Labs:[] none Pending MD notification:[] none Latest Vital Signs: Temperature 97.7 , Pulse 67 , B/P 125 /67 , Respiratory Rate 17 , O2 SAT 96 , Room Air, O2 Flow Rate 3 . Vital Sign Comment: [] Latest Chase Fall Score: 65 Fall Risk: High Risk Safety Measures: Call light Within Reach, Bed Alarm Zone 1, Side Rails Side Rails x2, Bed position Low and Locked. Fall Precautions: Yellow Socks Yellow Gown Patient Fall Education Report given to []. Addendum: 04/26/20 at 0711 by Shirley Armstrong RN pending lab results: bnp, cbc, mg, cmp report given to barbara
[2020-04-26 08:00] VITALS: BP 123/73
--- NOTE | 2020-04-26 08:23 | NUR ---
NURSE NOTES: Received report from ISMAEL Watson. Pt is sitting up eating, no s/s of distress. Side rails up x2, bed in lowest position, and call light is within reach.
--- NOTE | 2020-04-26 09:02 | NUR ---
NURSE NOTES: Discharge order and flu vaccine order received from Dr. Corrigan, read back and entered order.
[2020-04-26] MEDS: Vitamin D 1000 IU Tab ORAL SCH (09:27)
[2020-04-26] MEDS: Calcium Carbonate 500mg w/Vit D 200iu tab ORAL SCH ×3 (09:27→17:57)
[2020-04-26] MEDS: Atenolol 25mg tab ORAL SCH (09:27)
[2020-04-26] MEDS: Docusate 250mg cap ORAL SCH ×2 (09:28→17:57)
--- NOTE | 2020-04-26 11:49 | General Progress Note ---
Subjective ROS Limited/Unobtainable: No Constitutional: Reports: malaise, weakness HEENT: Reports: no symptoms Cardiovascular: Reports: no symptoms Respiratory: Reports: no symptoms Gastrointestinal/Abdominal: Reports: no symptoms Genitourinary: Reports: no symptoms Neurologic/Psychiatric: Reports: no symptoms Endocrine: Reports: no symptoms Hematologic/Lymphatic: Reports: no symptoms Allergies: Coded Allergies: STRAWBERRY (Verified Allergy, Unknown, Rash, 08/29/18) All Systems: reviewed and negative except above Subjective c/o lower back pain. no dysuria. denies constipation. per therapy- snf recommended. Objective Last 24 Hour Vital Signs Date Time Temp Pulse Resp B/P (MAP) Pulse Ox O2 Delivery O2 Flow Rate FiO2 04/26/20 09:28 70 123/73 04/26/20 09:27 70 123/73 04/26/20 09:00 Room Air 04/26/20 08:00 98.5 70 18 123/73 (90) 97 04/26/20 04:00 97.7 67 17 125/67 (86) 96 04/25/20 23:23 98.2 73 18 130/64 (86) 96 04/25/20 21:27 Room Air 04/25/20 19:51 98.7 70 18 127/70 (89) 96 04/25/20 16:00 98.1 72 16 131/72 (91) 97 04/25/20 12:00 98.0 66 16 135/59 (84) 97 Intake and Output 04/25/20 04/26/20 19:00 07:00 Intake Total 480 ml 360 ml Output Total 550 ml Balance 480 ml -190 ml Intake Oral 480 ml 360 ml Output Urine Total 550 ml # Voids 2 2 # Bowel Movements 1 Laboratory Tests 04/26/20 05:10: White Blood Count 7.1, Red Blood Count 5.11, Hemoglobin 14.9, Hematocrit 43.4, Mean Corpuscular Volume 85, Mean Corpuscular Hemoglobin 29.1, Mean Corpuscular Hemoglobin Concent 34.3, Red Cell Distribution Width 14.0, Platelet Count 432, Mean Platelet Volume 6.1L, Neutrophils (%) (Auto) 67.7, Lymphocytes (%) (Auto) 20.4, Monocytes (%) (Auto) 8.5, Eosinophils (%) (Auto) 1.9, Basophils (%) (Auto) 1.5, Sodium Level 139, Potassium Level 4.1, Chloride Level 102, Carbon Dioxide Level 32, Anion Gap 5, Blood Urea Nitrogen 15, Creatinine 0.9, Estimat Glomerular Filtration Rate 59.1, Glucose Level 93, Calcium Level 9.5, Magnesium Level 1.9, Total Bilirubin 0.4, Aspartate Amino Transf (AST/SGOT) 20, Alanine Aminotransferase (ALT/SGPT) 10L, Alkaline Phosphatase 107, Pro-B-Type Natriuretic Peptide 275H, Total Protein 7.5, Albumin 3.3L, Globulin 4.2, Albumin/Globulin Ratio 0.8L Height (Feet): 5 Height (Inches): 3.00 Weight (Pounds): 100 Objective General Appearance: WD/WN, alert EENT: PERRL/EOMI, normal ENT inspection Neck: non-tender, normal alignment Cardiovascular: normal peripheral pulses, normal rate, regular rhythm Respiratory/Chest: chest wall non-tender, lungs clear, normal breath sounds Abdomen: normal bowel sounds, non tender, soft, no organomegaly Edema: no edema noted Arm (L), no edema noted Arm (R) Neurologic: neurobiologist II-XII grossly normal, alert, oriented x 3 Skin: normal pigmentation Assessment/Plan Problem List: (1) T12 compression fracture ICD Codes: S22.080A - Wedge compression fracture of T11-T12 vertebra, initial encounter for closed fracture SNOMED: 816742686 Status: stable, progressing Assessment/Plan: pt/ot pain rx bowel regime pt prefers to go home requesting prior snf - [facility] if home not a option labs Nelson Corrigan MD Apr 26, 2020 11:48
[2020-04-26 12:00] VITALS: BP 125/68
--- NOTE | 2020-04-26 14:43 | Cardiology Progress Note ---
Subjective DATE OF SERVICE: Apr 26, 2020 S/p T12 kyphoplasty 04/21; no intra-op complications noted. No SOB. BP trend remains stable. Needs assist with mobility/care, but making progress - considering SNF On vitamin supplements due to deficiencies. Albumin now above 3 2D Echo: normal LVEF, no significant valve abnormalities, no pulmonary hypertension. EKG (04/20) Sinus rhythm with LAE; no significant abnormalities. Objective Last 24 Hour Vital Signs Date Time Temp Pulse Resp B/P (MAP) Pulse Ox O2 Delivery O2 Flow Rate FiO2 04/26/20 12:00 98.5 70 16 125/68 (87) 97 04/26/20 09:28 70 123/73 04/26/20 09:27 70 123/73 04/26/20 09:00 Room Air 04/26/20 08:00 98.5 70 18 123/73 (90) 97 04/26/20 04:00 97.7 67 17 125/67 (86) 96 04/25/20 23:23 98.2 73 18 130/64 (86) 96 04/25/20 21:27 Room Air 04/25/20 19:51 98.7 70 18 127/70 (89) 96 04/25/20 16:00 98.1 72 16 131/72 (91) 97 ROS: unchanged from my initial evaluation HEENT: normal ENT inspection LUNGS: diminished breath sounds CARDIAC: normal rate, regular rhythm, normal S1 and S2, systolic murmur - 1/6 systolic murmur base ABDOMEN: normal bowel sounds, non tender, soft EXTREMITIES: no calf tenderness, No edema Laboratory Tests Test 04/26/20 05:10 White Blood Count 7.1 K/UL (4.8-10.8) Red Blood Count 5.11 M/UL (4.20-5.40) Hemoglobin 14.9 G/DL (12.0-16.0) Hematocrit 43.4 % (37.0-47.0) Mean Corpuscular Volume 85 FL (80-99) Mean Corpuscular Hemoglobin 29.1 PG (27.0-31.0) Mean Corpuscular Hemoglobin Concent 34.3 G/DL (32.0-36.0) Red Cell Distribution Width 14.0 % (11.6-14.8) Platelet Count 432 K/UL (150-450) Mean Platelet Volume 6.1 FL (6.5-10.1) L Neutrophils (%) (Auto) 67.7 % (45.0-75.0) Lymphocytes (%) (Auto) 20.4 % (20.0-45.0) Monocytes (%) (Auto) 8.5 % (1.0-10.0) Eosinophils (%) (Auto) 1.9 % (0.0-3.0) Basophils (%) (Auto) 1.5 % (0.0-2.0) Sodium Level 139 MMOL/L (136-145) Potassium Level 4.1 MMOL/L (3.5-5.1) Chloride Level 102 MMOL/L (98-107) Carbon Dioxide Level 32 MMOL/L (21-32) Anion Gap 5 mmol/L (5-15) Blood Urea Nitrogen 15 mg/dL (7-18) Creatinine 0.9 MG/DL (0.55-1.30) Estimat Glomerular Filtration Rate 59.1 mL/min (>60) Glucose Level 93 MG/DL (74-106) Calcium Level 9.5 MG/DL (8.5-10.1) Magnesium Level 1.9 MG/DL (1.8-2.4) Total Bilirubin 0.4 MG/DL (0.2-1.0) Aspartate Amino Transf (AST/SGOT) 20 U/L (15-37) Alanine Aminotransferase (ALT/SGPT) 10 U/L (12-78) L Alkaline Phosphatase 107 U/L (46-116) Pro-B-Type Natriuretic Peptide 275 pg/mL (0-125) H Total Protein 7.5 G/DL (6.4-8.2) Albumin 3.3 G/DL (3.4-5.0) L Globulin 4.2 g/dL Albumin/Globulin Ratio 0.8 (1.0-2.7) L Assessment/Plan Assessment/Plan T12 compession fracture - s/p kyphoplasty Prior lumbar compression fx (2019) Hypertension with occasional BP spikes likely related to pain. Osteoporosis Degenerative valve disease Hyperlipidemia Chronic diastolic CHF Mild protein/yaya malnutrition - improving Pain control Titrate antiHTN meds as needed; avoid orthostasis potential. PRN meds for BP spikes. Ca++/Vit D suppl Add calcitonin nasal spray DVT prophylaxis Continue statin therapy Monitor volume status; presently no need for diuresis. Maintain beta blockade PT/OT and discharge planning; favor return home with good indicators Elvin Carreno MD Apr 26, 2020 14:43
--- NOTE | 2020-04-26 15:47 | NUR ---
NURSE NOTES: Report given to Stephon GUEVARA.
[2020-04-26 16:00] VITALS: BP 138/104
--- NOTE | 2020-04-26 19:09 | NUR ---
NURSE HAND-OFF: Important Events on Shift:waiting for bed to be available at SNF Patient Status: stable Diet: regular Pending Orders: n/a Pending Results/Labs:n/a Pending MD notification:n/a Latest Vital Signs: Temperature 98.2 , Pulse 69 , B/P 138 /104 , Respiratory Rate 18 , O2 SAT 98 , Room Air, O2 Flow Rate 3 . Vital Sign Comment: VSS Latest Chase Fall Score: 65 Fall Risk: High Risk Safety Measures: Call light Within Reach, Bed Alarm Zone 1, Side Rails Side Rails x2, Bed position Low and Locked. Fall Precautions: Yellow Socks Yellow Gown Door Sign Patient Fall Education Report given to ISMAEL Watson. Patient stable in bed.
--- NOTE | 2020-04-26 19:16 | NUR ---
NURSE NOTES: received patient in bed denies any pain or discomfort at this time.
[2020-04-27] VITALS: BP 120/59
[2020-04-27 04:00] VITALS: BP 125/56
--- NOTE | 2020-04-27 06:11 | NUR ---
NURSE HAND-OFF: Important Events on Shift:[] patient slept good thru the night. No pain or any discomfort. Awaiting bed for SNF placement Patient Status: [] stable Diet: [] regular Pending Orders: [] none Pending Results/Labs:[] none Pending MD notification:[] none Latest Vital Signs: Temperature 98.1 , Pulse 59 , B/P 125 /56 , Respiratory Rate 17 , O2 SAT 96 , Room Air, O2 Flow Rate 3 . Vital Sign Comment: [] Latest Chase Fall Score: 65 Fall Risk: High Risk Safety Measures: Call light Within Reach, Bed Alarm Zone 1, Side Rails Side Rails x2, Bed position Low and Locked. Fall Precautions: Yellow Socks Report given to []. Addendum: 04/27/20 at 0730 by Shirley Armstrong RN report given to denise fair
--- NOTE | 2020-04-27 07:44 | NUR ---
NURSE NOTES: Received report from Shirley GUEVARA, pt laying in bed eating breakfast with no signs of distress or other issues at this time. no IV access, per report MD is aware. pt has sacral Optifoam as prophylactic measure. call light within reach, bed in lowest position. side rales up x2. I will f/u as needed.
[2020-04-27 08:00] VITALS: BP_SYST 109; BP_SYST 124; BP_DIAS 70; BP_DIAS 74
--- NOTE | 2020-04-27 08:26 | NUR ---
RD ASSESSMENT & RECOMMENDATIONS SEE CARE ACTIVITY FOR COMPLETE ASSESSMENT DAILY ESTIMATED NEEDS: Needs based on DTI, 45kg 30-35 kcals/kg 5889-4687 total kcals 1.25-1.5 g protein/kg 56-68 g total protein 25-30ml/kcal mL/kg 5404-2571 total fluid mLs NUTRITION DIAGNOSIS: Increased kcal and protein needs r/t skin breakdown as evidenced by pt w/ compression fracture, limited mobility, now w/ buttock. sacral DTI. CURRENT DIET:REGULAR PO DIET RECOMMENDATIONS: Liberalized regular/ TEXTURE TOLERATED ADDITIONAL RECOMMENDATIONS: 1) Maintain a calibrated bed scale wt 2) Prune juice once daily per pt request- for bowel management 3) Monitor Po intake -> pt refused Ensure Enlive 4) Wound healing: continue MVI x 1 add Vit C 500mg QD 5) Rec bed side BG checks
[2020-04-27] MEDS: Atenolol 25mg tab ORAL SCH (09:06)
[2020-04-27] MEDS: Calcium Carbonate 500mg w/Vit D 200iu tab ORAL SCH ×3 (09:06→18:30)
[2020-04-27] MEDS: Docusate 250mg cap ORAL SCH ×2 (09:06→18:30)
[2020-04-27] MEDS: Vitamin D 1000 IU Tab ORAL SCH (09:06)
[2020-04-27 12:00] VITALS: BP 118/57
[2020-04-27 16:00] VITALS: BP 122/66
--- NOTE | 2020-04-27 16:43 | General Progress Note ---
Subjective Constitutional: Reports: malaise, weakness HEENT: Reports: no symptoms Cardiovascular: Reports: no symptoms Respiratory: Reports: no symptoms Gastrointestinal/Abdominal: Reports: no symptoms Genitourinary: Reports: no symptoms Neurologic/Psychiatric: Reports: no symptoms Endocrine: Reports: no symptoms Hematologic/Lymphatic: Reports: no symptoms Allergies: Coded Allergies: STRAWBERRY (Verified Allergy, Unknown, Rash, 08/29/18) All Systems: reviewed and negative except above Subjective no new complaints. same back pain. no fevers. no cough. no LE weakness. no incontinence Objective Last 24 Hour Vital Signs Date Time Temp Pulse Resp B/P (MAP) Pulse Ox O2 Delivery O2 Flow Rate FiO2 04/27/20 12:00 98.3 58 18 118/57 (77) 97 04/27/20 09:06 78 124/70 04/27/20 09:06 78 124/70 04/27/20 09:00 Room Air 04/27/20 08:00 98.3 75 17 124/70 (88) 96 04/27/20 04:00 98.1 59 17 125/56 (79) 96 04/27/20 00:00 97.9 57 18 120/59 (79) 96 04/26/20 20:00 98.2 62 16 96 04/26/20 19:48 Room Air l Intake and Output 04/26/20 04/27/20 19:00 07:00 Intake Total 720 ml 480 ml Balance 720 ml 480 ml Intake Oral 720 ml 480 ml # Voids 2 4 # Bowel Movements 2 Height (Feet): 5 Height (Inches): 3.00 Weight (Pounds): 100 Objective General Appearance: WD/WN, alert EENT: PERRL/EOMI, normal ENT inspection Neck: non-tender, normal alignment Cardiovascular: normal peripheral pulses, normal rate, regular rhythm Respiratory/Chest: chest wall non-tender, lungs clear, normal breath sounds Abdomen: normal bowel sounds, non tender, soft, no organomegaly Edema: no edema noted Arm (L), no edema noted Arm (R) Neurologic: dance therapist II-XII grossly normal, alert, oriented x 3 Skin: normal pigmentation Assessment/Plan Problem List: (1) T12 compression fracture ICD Codes: S22.080A - Wedge compression fracture of T11-T12 vertebra, initial encounter for closed fracture SNOMED: [id number] Status: stable, progressing Assessment/Plan: pt/ot pain rx bowel regime await snf bed try ARU labs ok- reviewed with pt Nelson Corrigan MD Apr 27, 2020 16:43
--- NOTE | 2020-04-27 19:42 | NUR ---
NURSE HAND-OFF: Important Events on Shift: Patient Status: stable Diet: regular Pending Orders: [] Pending Results/Labs:[] Pending MD notification:[] Latest Vital Signs: Temperature 98.8 , Pulse 72 , B/P 122 /66 , Respiratory Rate 18 , O2 SAT 96 , Room Air, O2 Flow Rate 3 . Vital Sign Comment: stable Latest Chase Fall Score: 65 Fall Risk: High Risk Safety Measures: Call light Within Reach, Bed Alarm Zone 1, Side Rails Side Rails x2, Bed position Low and Locked. Fall Precautions: Yellow Socks Report given to Savita RN, pt in stable condition - plan to transfer to ARU ([facility]) once bed becomes available.
--- NOTE | 2020-04-27 19:43 | NUR ---
NURSE NOTES: Received report from ISMAEL Mae. Rounds done. Patient sitting up in bed, no distress noted. No IV access. No complaints of pain, denies needs at this time. Bed in low position, locked, side rails up x2, call light within reach. Encouraged to call as needed. Will continue to monitor.
[2020-04-27 20:00] VITALS: BP 129/71
[2020-04-28] VITALS: BP 133/64
--- NOTE | 2020-04-28 01:31 | Cardiology Progress Note ---
Subjective DATE OF SERVICE: Apr 27, 2020 S/p T12 kyphoplasty 04/21; no intra-op complications noted. No SOB. BP trend remains stable. Needs assist with mobility/care, but making progress - considering SNF On vitamin supplements due to deficiencies. Albumin now above 3 2D Echo: normal LVEF, no significant valve abnormalities, no pulmonary hypertension. EKG (04/20) Sinus rhythm with LAE; no significant abnormalities. Objective Last 24 Hour Vital Signs Date Time Temp Pulse Resp B/P (MAP) Pulse Ox O2 Delivery O2 Flow Rate FiO2 04/27/20 20:00 97.9 68 18 129/71 (90) 98 04/27/20 16:00 98.8 72 18 122/66 (84) 96 04/27/20 12:00 98.3 58 18 118/57 (77) 97 04/27/20 09:06 78 124/70 04/27/20 09:06 78 124/70 04/27/20 09:00 Room Air 04/27/20 08:00 98.3 75 17 124/70 (88) 96 04/27/20 04:00 98.1 59 17 125/56 (79) 96 ROS: unchanged from my initial evaluation HEENT: normal ENT inspection LUNGS: diminished breath sounds CARDIAC: normal rate, regular rhythm, normal S1 and S2, systolic murmur - 1/6 systolic murmur base, bradycardia ABDOMEN: normal bowel sounds, non tender, soft EXTREMITIES: no calf tenderness, No edema Assessment/Plan Assessment/Plan T12 compession fracture - s/p kyphoplasty Prior lumbar compression fx (2018) Hypertension with occasional BP spikes likely related to pain. Osteoporosis Degenerative valve disease Hyperlipidemia Chronic diastolic CHF Mild protein/yaya malnutrition - improving Sinus bradycardia of no significance Pain control Titrate antiHTN meds as needed; avoid orthostasis potential. PRN meds for BP spikes. Ca++/Vit D suppl Add calcitonin nasal spray DVT prophylaxis Continue statin therapy Monitor volume status; presently no need for diuresis. Maintain beta blockade PT/OT and discharge planning; favor return home with good indicators Elvin Carreno MD Apr 28, 2020 01:31
[2020-04-28 03:58] VITALS: BP 132/66
--- NOTE | 2020-04-28 05:55 | NUR ---
NURSE NOTES: Dr Corrigan here to see patient.
--- NOTE | 2020-04-28 07:10 | NUR ---
NURSE HAND-OFF: Important Events on Shift:[] Patient Status: stable Diet: reg Pending Orders: []awaiting placement in acute rehab Pending Results/Labs:[] Pending MD notification:[] Latest Vital Signs: Temperature 97.8 , Pulse 68 , B/P 132 /66 , Respiratory Rate 18 , O2 SAT 97 , Room Air, O2 Flow Rate 3 . Vital Sign Comment: [] Latest Chase Fall Score: 65 Fall Risk: High Risk Safety Measures: Call light Within Reach, Bed Alarm Zone 1, Side Rails Side Rails x2, Bed position Low and Locked. Fall Precautions: Yellow Socks Report given to ISMAEL Ruiz
--- NOTE | 2020-04-28 07:30 | NUR ---
NURSE NOTES: WALKING ROUNDS DONE WITH NIGHT RN. PATIENT AWAKE IN BED HAVING BREAKFAST. QUESTIONS ANSWERED NEEDS MET. DISCUSSED PLAN OF CARE FOR THE DAY. VERBALIZED UNDERSTANDING. WILL ENCOURAGE TO GET OOB TODAY AND BE MORE ACTIVE. BED IN LOW AND LOCKED POSITION. BED ALARM ON. CALL LIGHT WITHIN REACH.
[2020-04-28 08:00] VITALS: BP 151/69
[2020-04-28] MEDS: Docusate 250mg cap ORAL SCH ×2 (08:45→17:30)
[2020-04-28] MEDS: Calcium Carbonate 500mg w/Vit D 200iu tab ORAL SCH ×3 (08:45→18:16)
[2020-04-28] MEDS: Vitamin D 1000 IU Tab ORAL SCH (08:46)
[2020-04-28] MEDS: Atenolol 25mg tab ORAL SCH (08:46)
--- NOTE | 2020-04-28 09:02 | NUR ---
*-*DISCHARGE PLANNING*-* PATIENT HAS BEEN REFERRED TO: [facility] P: [phone] S/W RUBEN, WHO STATED , STILL PENDING AUTHORIZATION, WILL CHELSEY BACK AND FOLLOW UP.
--- NOTE | 2020-04-28 09:13 | General Progress Note ---
Subjective ROS Limited/Unobtainable: No Constitutional: Reports: malaise, weakness HEENT: Reports: no symptoms Cardiovascular: Reports: no symptoms Respiratory: Reports: no symptoms Gastrointestinal/Abdominal: Reports: no symptoms Genitourinary: Reports: no symptoms Neurologic/Psychiatric: Reports: no symptoms Endocrine: Reports: no symptoms Hematologic/Lymphatic: Reports: no symptoms Allergies: Coded Allergies: STRAWBERRY (Verified Allergy, Unknown, Rash, 08/29/18) All Systems: reviewed and negative except above Subjective no new complaints. same back pain. no fevers. no cough. no LE weakness. no incontinence case management noted. awaiting insurance auth for placement Objective Last 24 Hour Vital Signs Date Time Temp Pulse Resp B/P (MAP) Pulse Ox O2 Delivery O2 Flow Rate FiO2 04/28/20 08:46 81 151/69 04/28/20 03:58 97.8 68 18 132/66 (88) 97 04/28/20 00:00 97.5 66 16 133/64 (87) 97 04/27/20 21:00 Room Air 04/27/20 20:00 97.9 68 18 129/71 (90) 98 04/27/20 16:00 98.8 72 18 122/66 (84) 96 04/27/20 12:00 98.3 58 18 118/57 (77) 97 Intake and Output 04/27/20 04/28/20 19:00 07:00 Intake Total 600 ml 450 ml Balance 600 ml 450 ml Intake Oral 600 ml 450 ml # Voids 3 # Bowel Movements 1 Height (Feet): 5 Height (Inches): 3.00 Weight (Pounds): 100 Objective General Appearance: WD/WN, alert EENT: PERRL/EOMI, normal ENT inspection Neck: non-tender, normal alignment Cardiovascular: normal peripheral pulses, normal rate, regular rhythm Respiratory/Chest: chest wall non-tender, lungs clear, normal breath sounds Abdomen: normal bowel sounds, non tender, soft, no organomegaly Edema: no edema noted Arm (L), no edema noted Arm (R) Neurologic: oracle adf developer II-XII grossly normal, alert, oriented x 3 Skin: normal pigmentation Assessment/Plan Problem List: (1) T12 compression fracture ICD Codes: S22.080A - Wedge compression fracture of T11-T12 vertebra, initial encounter for closed fracture SNOMED: [id number] Status: stable, progressing Assessment/Plan: pt/ot pain rx bowel regime await snf bed try ARU labs ok- reviewed with pt Nelson Corrigan MD Apr 28, 2020 09:13
[2020-04-28 12:00] VITALS: BP 146/68
--- NOTE | 2020-04-28 12:58 | NUR ---
CASE MANAGEMENT:REVIEW SI;POD #7 KYPHOPLASTY 98.0 81 18 151/69 97% ON RA IS;NORVASC PO QD LIPITOR PO QD PEPCID PO QD ATENOLOL PO QD MED SURG STATUS DCP;FROM HOME DC PLANNING TO SNF DC PENDING AUTH FROM INSURANCE FOR SNF PLACEMENT
--- NOTE | 2020-04-28 14:34 | NUR ---
NURSE NOTES: PATIENT MORE MOTIVATED TO GET OOB TODAY COMPARED TO LAST WEEK. REQUESTING TO USE BSC. ABLE TO GET OOB WITH MINIMUM ASSISTANCE. PAIN 1/10 ON PAIN SCALE. APPETITE IMPROVED.
--- NOTE | 2020-04-28 15:54 | NUR ---
*-*DISCHARGE PLANNING*-* PATIENT HAS BEEN REFERRED TO: [facility] P: [phone] S/W GORGE, MIGHT HAVE A BED FOR TOMORROW, CALL BACK TOMORROW .
[2020-04-28 16:00] VITALS: BP 128/65
--- NOTE | 2020-04-28 19:20 | NUR ---
NURSE NOTES: RECEIVED PATIENT FROM ISMAEL BEARDEN. PATIENT IS AWAKE, CALM, RESTING IN BED, AAOX4, ON ROOM AIR, NO ACUTE DISTRESS NOTED. PIV INTACT AND PATENT. VSS. AFEBRILE. DENIES SOB, AND CHEST PAIN. C/O 3/10 ACHING BACK PAIN, WILL FOLLOW UP WITH PRN TYLENOL. BED IS LOCKED AND LOW, BED ALARMS ACTIVE, SIDE RAILS UPX2 AND CALL LIGHT IS WITHIN REACH. WILL CONTINUE TO MONITOR.
--- NOTE | 2020-04-28 19:25 | NUR ---
NURSE HAND-OFF: Important Events on Shift:N/A Patient Status: STABLE Diet: REGULAR Pending Orders: N/A Pending Results/Labs:N/A Pending MD notification:N/A Latest Vital Signs: Temperature 97.8 , Pulse 74 , B/P 128 /65 , Respiratory Rate 20 , O2 SAT 97 , Room Air. Vital Sign Comment: N/A Latest Chase Fall Score: 55 Fall Risk: High Risk Safety Measures: Call light Within Reach, Bed Alarm Zone 1, Side Rails Side Rails x2, Bed position Low and Locked. Fall Precautions: Door Sign Patient Fall Education Report given to LUPE SOLORZANO RN.
[2020-04-28 20:00] VITALS: BP 130/63
[2020-04-29] VITALS: BP 128/59
--- NOTE | 2020-04-29 01:03 | Cardiology Progress Note ---
Subjective DATE OF SERVICE: Apr 28, 2020 S/p T12 kyphoplasty 04/21; no intra-op complications noted. No SOB. BP trend remains stable. Needs assist with mobility/care, but making progress - considering SNF On vitamin supplements due to deficiencies. Albumin now above 3 2D Echo: normal LVEF, no significant valve abnormalities, no pulmonary hypertension. EKG (04/20) Sinus rhythm with LAE; no significant abnormalities. Objective Last 24 Hour Vital Signs Date Time Temp Pulse Resp B/P (MAP) Pulse Ox O2 Delivery O2 Flow Rate FiO2 04/29/20 00:00 97.6 66 17 128/59 (82) 98 04/28/20 21:00 Room Air 04/28/20 20:00 97.6 83 17 130/63 (85) 94 04/28/20 16:00 97.8 74 20 128/65 (86) 97 04/28/20 12:00 98.0 70 18 146/68 (94) 99 04/28/20 09:18 81 151/69 04/28/20 09:00 Room Air 04/28/20 08:46 81 151/69 04/28/20 08:00 98.0 81 18 151/69 (96) 97 04/28/20 03:58 97.8 68 18 132/66 (88) 97 ROS: unchanged from my initial evaluation HEENT: normal ENT inspection LUNGS: diminished breath sounds CARDIAC: normal rate, regular rhythm, normal S1 and S2, systolic murmur - 1/6 systolic murmur base, bradycardia ABDOMEN: normal bowel sounds, non tender, soft EXTREMITIES: no calf tenderness, No edema Assessment/Plan Assessment/Plan T12 compession fracture - s/p kyphoplasty Prior lumbar compression fx (2018) Hypertension with occasional BP spikes likely related to pain. Osteoporosis Degenerative valve disease Hyperlipidemia Chronic diastolic CHF Mild protein/yaya malnutrition - improving Sinus bradycardia of no significance Pain control Titrate antiHTN meds as needed; avoid orthostasis potential. PRN meds for BP spikes. Ca++/Vit D suppl Continue calcitonin nasal spray DVT prophylaxis Continue statin therapy Monitor volume status; presently no need for diuresis. Maintain beta blockade PT/OT and discharge planning; favor return home with good indicators Elvin Carreno MD Apr 29, 2020 01:03
--- NOTE | 2020-04-29 01:03 | NUR ---
NURSE NOTES: PATIENT UNABLE TO VOID. BLADDER SCAN SHOWED RETENTION OF >400ML. NOTIFIED DR. ARGUELLES AND RECEIVED ORDERS FOR STRAIGHT CATH. 650 ML OUTPUT VIA STRAIGHT CATH. PATIENT IS STABLE. DENIES PAIN AND DISCOMFORT. WILL CONTINUE TO MONITOR.
--- NOTE | 2020-04-29 07:43 | NUR ---
HAND-OFF: Report given to ISMAEL Dong.
--- NOTE | 2020-04-29 07:45 | NUR ---
NURSE NOTES: Received report from Keli, RN. Pt awake, alert and oriented in bed. On RA, no respiratory distress. Denied pain at this time. No IV access, MD aware. Call light and needs within reach. Will continue to monitor.
[2020-04-29 08:00] VITALS: BP 130/67
[2020-04-29] MEDS: Vitamin D 1000 IU Tab ORAL SCH (09:03)
[2020-04-29] MEDS: Atenolol 25mg tab ORAL SCH (09:04)
[2020-04-29] MEDS: Calcium Carbonate 500mg w/Vit D 200iu tab ORAL SCH ×3 (09:04→17:37)
[2020-04-29] MEDS: Docusate 250mg cap ORAL SCH ×2 (09:04→17:12)
[2020-04-29 12:00] VITALS: BP 128/66
--- NOTE | 2020-04-29 13:00 | NUR ---
CASE MANAGEMENT:REVIEW SI;S/P KYPHOPLASTY 04/21/20 98.3 81 18 130/67 97% ON RA NO LABS AVAILABLE IS;NORVASC PO QD PEPCID PO QD LIPITOR PO QD ATENOLOL PO QD MED SURG STATUS DCP;FROM HOME DC PLANNING TO SNF PENDING AUTH FROM INSURANCE
--- NOTE | 2020-04-29 13:34 | NUR ---
WIRE LATHER NOTE CALL RECEIVED FROM JOSIE AT [facility] [phone]. PER JOSIE, AUTH FOR PLACEMENT WILL BE PROVIDED TO [facility] TODAY WITH REF/AUTH #[id number]. JOSIE WILL CONTACT THIS CM WITH OK TO TRANSFER. DR SANDOVAL INFORMED OF [facility] APPROVAL AND GAVE TO/RB TO DC TO [facility]. NOTED AND CARRIED OUT. ISMAEL LEE INFORMED.
--- NOTE | 2020-04-29 14:03 | NUR ---
*-*DISCHARGE PLANNED*-* PATIENT HAS BEEN ACCEPTED AND WILL BE DISCHARGED TO: [facility] P: [phone] FOR NURSE TO NURSE REPORT ROOM# 114.[facility] TRANSPORTATION SET FOR 6PM S/W PAIGE [id number]. S/W PATIENT SON KELLI DOMINGUEZ, WHO IS IN AGREEMENT WITH DISCHARGE PLAN.
--- NOTE | 2020-04-29 15:24 | Discharge Summary ---
Discharge Summary Hospital Course Date of Admission Apr 11, 2020 at 10:19 Date of Discharge Admitting Diagnosis Lumbar FX HPI Dawna Diallo is a 89 year old female who was admitted on Apr 11, 2020 at 10:19 for Lumbar Fracture Consultations cardiology and spine Hospital Course pt was admitted with fall and back pain +t12 compression fx. pt had severe intractable pain. waited almost a week for insurance auth for kyphoplasty tolerated well waited a week for auth for placement will dc snf for threrapy diet regular activity ad new Discharge Discharge Vital Signs Last Vital Signs Date Time Temp Pulse Resp B/P (MAP) Pulse Ox O2 Delivery O2 Flow Rate FiO2 04/29/20 12:00 97.8 72 18 128/66 (86) 97 04/29/20 09:00 Room Air 04/21/20 15:10 3 Discharge Disposition Patient was discharged to Nelson Corrigan MD Apr 29, 2020 15:24
--- NOTE | 2020-04-29 15:38 | NUR ---
INSURANCE CLINICALS/ REVIEWS/ DC SUMMARY FAXED TO JOSE L Simons [phone] F [phone]
[2020-04-29 16:00] VITALS: BP 131/68
--- NOTE | 2020-04-29 19:42 | NUR ---
NURSE HAND-OFF: Important Events on Shift:[Discharge] Patient Status: [stable] Diet: [reg] Pending Orders: [] Pending Results/Labs:[] Pending MD notification:[] Latest Vital Signs: Temperature 98.0 , Pulse 70 , B/P 131 /68 , Respiratory Rate 18 , O2 SAT 97 , Room Air, O2 Flow Rate 3 . Vital Sign Comment: [stable] Latest Chase Fall Score: 55 Fall Risk: High Risk Safety Measures: Call light Within Reach, Bed Alarm Zone 1, Side Rails Side Rails x2, Bed position Low and Locked. Fall Precautions: Door Sign Patient Fall Education Report given to [ISMAEL Maher].
[2020-04-29 20:20] VITALS: BP 161/80
[2020-04-29] MEDS: HydrALAZINE 25mg tab ORAL PRN (20:20)
--- NOTE | 2020-04-29 21:52 | NUR ---
NURSES NOTE: Received pt from ISMAEL Dong. No outward s/s of distress noted. VS taken and BP elevated. 160/81- 25mg Hydralazine administered. BP taken after 15 minutes and reduced to 134/80. Pt stable and discharged at approx 2030. Pt taken by stretcher by ambulance to approved facility.
--- NOTE | 2020-04-30 00:58 | Cardiology Progress Note ---
Subjective DATE OF SERVICE: Apr 29, 2020 S/p T12 kyphoplasty 04/21; no intra-op complications noted. No SOB. BP trend remains stable. Needs assist with mobility/care, but making progress - awaiting ARU admit On vitamin supplements due to deficiencies. Albumin now above 3 2D Echo: normal LVEF, no significant valve abnormalities, no pulmonary hypertension. EKG (04/20) Sinus rhythm with LAE; no significant abnormalities. Objective Last 24 Hour Vital Signs Date Time Temp Pulse Resp B/P (MAP) Pulse Ox O2 Delivery O2 Flow Rate FiO2 04/29/20 20:20 161/80 04/29/20 16:00 98.0 70 18 131/68 (89) 97 04/29/20 12:00 97.8 72 18 128/66 (86) 97 04/29/20 09:04 81 130/67 04/29/20 09:03 81 130/67 04/29/20 09:00 Room Air 04/29/20 08:00 98.3 81 18 130/67 (88) 98 ROS: unchanged from my initial evaluation HEENT: normal ENT inspection LUNGS: diminished breath sounds CARDIAC: normal rate, regular rhythm, normal S1 and S2, systolic murmur - 1/6 systolic murmur base, bradycardia ABDOMEN: normal bowel sounds, non tender, soft EXTREMITIES: no calf tenderness, No edema Assessment/Plan Assessment/Plan T12 compession fracture - s/p kyphoplasty Prior lumbar compression fx (2018) Hypertension with occasional BP spikes likely related to pain. Osteoporosis Degenerative valve disease Hyperlipidemia Chronic diastolic CHF Mild protein/yaya malnutrition - improving Sinus bradycardia of no significance Pain control Titrate antiHTN meds as needed; avoid orthostasis potential. PRN meds for BP spikes. Ca++/Vit D suppl Continue calcitonin nasal spray DVT prophylaxis until mobility improves. Continue statin therapy Monitor volume status; presently no need for diuresis. Maintain beta blockade PT/OT and discharge planning to ARU today Elvin Carreno MD Apr 30, 2020 00:58
--- NOTE | 2020-05-01 13:41 | Cardiology Report ---
APPROVED REPORT EKG Measurement Heart [id number] MS [id number] <Conclusion> Normal sinus rhythm Possible Left atrial enlargement Borderline ECG
== END 2020-04-29 20:43 | DRG 515 ==
LOC: EDBD 07:55 → EMR 08:15 → 3E 10:19 → EDBEDREQ 11:33
PROC: 0PU43JZ Supplement Thoracic Vertebra with Synthetic Substitute, Percutaneous Approach (ICD-10-PCS; principal; 2020-04-21 12:30)
DX: S22.080A Wedge compression fracture of T11-T12 vertebra, initial encounter for closed fracture (principal); E43 Unspecified severe protein-calorie malnutrition; Z68.1 Body mass index [BMI] 19.9 or less, adult; I50.32 Chronic diastolic (congestive) heart failure; E78.5 Hyperlipidemia, unspecified; X50.0XXA Overexertion from strenuous movement or load, initial encounter; Y92.012 Bathroom of single-family (private) house as the place of occurrence of the external cause; D72.829 Elevated white blood cell count, unspecified; I11.0 Hypertensive heart disease with heart failure; Z85.3 Personal history of malignant neoplasm of breast; M81.0 Age-related osteoporosis without current pathological fracture; G89.11 Acute pain due to trauma; Z20.828 Contact with and (suspected) exposure to other viral communicable diseases; R00.1 Bradycardia, unspecified
CPT/HCPCS: 36415; 72020; 72070; 72131; 72146; 72148; 76000; 80048; 80053; 80061; 81003; 82306; 82962; 83036; 83735; 83880; 84443; 85025; 85610; 85730; 86850; 86900; 86901; 93005; 93306; 94003; 94150; 96361; 96374; 96375; 99285; J2405; J2710; J7030; J8499; U0002